=== PATIENT | female | born 1940 | race Caucasian/White ===

== ENCOUNTER → 2016-08-23 | Outpatient (CLI) | payer MEDICARE, OTHER ==
[~2016-08-23] MED LIST: AMR2 PO; ASPCH81 PO; CEPH500C PO; CRDCD180 PO; GLC500 PO; LISI40TA PO; LRT5 PO; SIMV5TAB2 PO
[2016-08-23 09:27] LABS: INR 2.8 (0.9-1.1); PROTHROMBIN TIME (PATIENT) 31.5 SECONDS (9.0-12.0)
== END ==
LOC: C.LABUPNIT 08:59
PROVIDERS: ATTEND Family Medicine
DX: N17.9 Acute kidney failure, unspecified (principal)

== ENCOUNTER → 2016-08-26 | Outpatient (CLI) | payer MEDICARE, OTHER ==
[2016-08-26 10:22] LABS: BASO % 1.1 %; BASO ABS # 0.09 K/uL (0-0.2); COMPLETE YES; EOS % 3.5 %; HEMATOCRIT 35.7 % (37-47); IG% 0.1 %; LYMPH % 26.8 %; MEAN CELL VOLUME 77.4 fL (80-100); MEAN CORPUSCULAR HEMOGLOBIN 23.2 pg (25-34); MEAN PLATELET VOLUME 11.7 fL (7.4-10.4); NEUT % 60.5 %; PLATELET COUNT 395 K/uL (130-400); RED BLOOD COUNT 4.61 M/uL (4.2-5.4); WHITE BLOOD COUNT 8.21 K/uL (4.8-10.8)
[2016-08-26 10:36] LABS: BLOOD UREA NITROGEN 28 mg/dl (7-18); BUN/CREATININE RATIO 23.1 (10-20); CALCIUM 9.4 mg/dl (8.5-10.1); CARBON DIOXIDE 22 mmol/L (21-32); CHLORIDE 111 mmol/L (98-107); GLUCOSE 112 mg/dl (70-99); POTASSIUM 4.4 mmol/L (3.5-5.1); SODIUM 143 mmol/L (136-145)
== END ==
LOC: C.LABUPNIT 09:41
PROVIDERS: ATTEND Family Medicine
DX: I10 Essential (primary) hypertension (principal); N17.9 Acute kidney failure, unspecified

== ENCOUNTER 2021-10-08 10:08 | Inpatient (IN) ==
--- NOTE | 2021-10-08 11:13 | Emergency Department Note ---
History of Present Illness General Chief complaint: Hyperglycemia Stated complaint: HYPERGLYCEMIA Time Seen by Provider: 10/08/21 10:56 Source: patient Mode of arrival: ambulatory Limitations: no limitations History of Present Illness Provider complaint: n/v, out of insulin Associated symptoms: + loss of appetite, + malaise and + nausea/vomiting; no chest pain, no cough or no fever/chills Treatments prior to arrival: none This is a 81-year-old female presents emergency department complaining of nausea vomiting for 2 days and also states she has been out of her insulin for several months. Patient states she missed an appointment with her family doctor Dr. Bradley in August as she and her family member who she lives with both had Covid. She states she did not even call them to tell them she had been out of her insulin. Patient states she is a longstanding diabetic. Patient states in the last 2 days she has had increased nausea and vomiting. She states she drinks a lot of water. She states she does not check her blood sugar. Patient states she is always cold denies any change including fevers or chills. Patient states she has chronic diarrhea, denies blood, states this is never otherwise been evaluated. Pt seen during a time of high acuity and national emergency pandemic while wearing PPE. Home Medications Medication Instructions Recorded Confirmed Type diltiazem HCl 120 mg 1,220 mg PO QAM 10/08/21 10/08/21 History capsule,extended release 24 hr empagliflozin 10 mg tablet 10 mg PO QAM 10/08/21 10/08/21 History (Jardiance) fenofibrate 160 mg tablet 160 mg PO QAM 10/08/21 10/08/21 History furosemide 40 mg tablet 40 mg PO QAM 10/08/21 10/08/21 History metformin 500 mg tablet 500 mg PO BID 10/08/21 10/08/21 History pantoprazole 40 mg tablet,delayed 40 mg PO BID 10/08/21 10/08/21 History release rosuvastatin 40 mg tablet 40 mg PO QAM 10/08/21 10/08/21 History warfarin 2.5 mg tablet 2.5 mg PO QAM 10/08/21 10/08/21 History Allergies Allergy/AdvReac Type Severity Reaction Status Date / Time IV DYE Allergy Unknown Unknown Uncoded 10/08/21 11:48 PENICILLIN Allergy Unknown IV DYE Uncoded 10/08/21 11:48 Past Med/Surg History Medical History (Updated 10/10/21 @ 03:28 by Jasmin Mae DO) Anemia Atrial fibrillation COPD (chronic obstructive pulmonary disease) DM2 (diabetes mellitus, type 2) History of DVT (deep vein thrombosis) Social History Smoking Status: Never smoker Second Hand Exposure: No; Hx Alcohol Use: No Hx Substance Use: No Preferred Language: [place] Communication Ability: Effective Planting Material Carrier Required: No Beliefs That Will Affect Care: None marital status: Current Living Situation: Family Current Living Situation Comment: Lives with son Jaya Other Information That Helps Us Care for You: No Feels Safe at Home: Yes Safety Concerns: Feels Safe At This Time Assistive Devices: Cane and Walker Review of Systems A total of 10 systems reviewed and were otherwise negative All systems reviewed & are unremarkable except as noted in HPI & below Physical Exam Vital Signs Vital Signs - 24 hr 10/08/21 10:17 10/08/21 11:14 10/08/21 13:00 Temperature 35.8 C L Temperature Source Temporal Artery Scan Pulse Rate 69 Pulse Rate [Apical] 93 H 92 H Pulse Rhythm Regular Pulse Strength Normal Respiratory Rate 24 22 19 Respiratory Effort / Characteristics Non-Labored Spontaneous Respiratory Depth Normal Respiratory Pattern Regular Blood Pressure 107/72 Blood Pressure [Left Arm] 110/66 121/70 Blood Pressure Mean 83 Blood Pressure Mean [Left Arm] 80 87 Blood Pressure Position Sitting Pulse Oximetry 100 94 98 Oxygen Delivery Method Room Air Room Air Room Air Sepsis Recent Fever Within 48 Hours No Sepsis New/Unexplained Change in Mental Status No Sepsis Action Taken by Nursing No Action Required 10/08/21 14:34 10/08/21 14:53 10/08/21 15:08 Temperature 36.8 C 37.0 C 37.3 C Temperature Source Oral Oral Oral Pulse Rate 101 H 91 H 96 H Pulse Rate [Apical] Pulse Rhythm Regular Pulse Strength Normal Respiratory Rate 15 18 19 Respiratory Effort / Characteristics Respiratory Depth Respiratory Pattern Blood Pressure 146/63 H 136/82 125/66 Blood Pressure [Left Arm] Blood Pressure Mean 90 100 85 Blood Pressure Mean [Left Arm] Blood Pressure Position Pulse Oximetry 99 100 97 Oxygen Delivery Method Sepsis Recent Fever Within 48 Hours Sepsis New/Unexplained Change in Mental Status Sepsis Action Taken by Nursing GENERAL: alert, ill appearing, well nourished, no distress, non-toxic EYE EXAM: normal conjunctiva, PERRL and EOM's grossly intact OROPHARYNX: no exudate, no erythema, lips, buccal mucosa, and tongue normal and mucous membranes are moist NECK: supple, no nuchal rigidity, no adenopathy, non-tender LUNGS: Clear to auscultation. Normal chest wall mechanics, no w/r/r HEART: no murmurs, S1 normal and S2 normal ABDOMEN: abdomen soft, non-tender, normo-active bowel sounds, no masses, no rebound or guarding. BACK: Back is symmetrical on inspection and there is no deformity, no midline tenderness, no CVA tenderness. SKIN: no rashes and no bruising UPPER EXTREMITIES: upper extremities are grossly normal. FROM, nml pulses b/l. LOWER EXTREMITIES: No pitting edema. FROM, nml pulses b/l. NEURO EXAM: Normal sensorium, cranial nerves II-XII grossly intact, normal speech, no gross weakness of arms, no gross weakness of legs. Gross sensation intact. Course Course 1225: Patient denies any GI bleeding, states stools are chronically black due to her use of iron. Patient states she was previously told she had iron deficiency anemia. Patient denies any blood from any other source. 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 She is uncertain of the last INR was. We did discuss need for blood transfusion, she verbalized understanding was in agreement. Consent form signed at bedside. Administered Medications Diltiazem HCl (Diltiazem Hcl 120 Mg Capcr) 120 mg PO [facility] Stop: 11/08/21 08:59 Last Admin: 10/09/21 08:22 Dose: 120 mg Documented by: [id number] Fenofibrate (Fenofibrate Nanocrystallized 145 Mg Tablet) 145 mg PO [facility] Stop: 11/08/21 08:59 Last Admin: 10/09/21 10:00 Dose: 145 mg Documented by: [id number] Furosemide (Furosemide 40 Mg Tab) 40 mg PO [facility] Stop: 11/08/21 08:59 Last Admin: 10/09/21 08:21 Dose: 40 mg Documented by: [id number] Lactated Ringer's (Lr) 1,000 mls @ 75 mls/hr IV .[id number] [facility] Stop: 11/07/21 11:14 Last Admin: 10/10/21 02:13 Dose: 75 mls/hr Documented by: [id number] Infusion: 10/10/21 01:50 Dose: 75 mls/hr Documented by: [id number] Admin: 10/09/21 12:30 Dose: 75 mls/hr Documented by: [id number] Infusion: 10/09/21 12:10 Dose: 0 mls/hr Documented by: [id number] Infusion: 10/09/21 06:22 Dose: 125 mls/hr Documented by: [id number] Infusion: 10/08/21 23:39 Dose: 0 mls/hr Documented by: [id number] Admin: 10/08/21 21:26 Dose: 125 mls/hr Documented by: [id number] Infusion: 10/08/21 18:30 Dose: 0 mls/hr Documented by: [id number] Admin: 10/08/21 11:22 Dose: 125 mls/hr Documented by: [id number] Pantoprazole Sodium 40 mg/ (Dextrose) 100 mls @ 20 mls/hr IV Q5H [facility] Stop: 11/08/21 08:14 Last Admin: 10/10/21 02:23 Dose: 8 mg/hr, 20 mls/hr Documented by: [id number] Infusion: 10/10/21 02:23 Dose: 8 mg/hr, 20 mls/hr Documented by: [id number] Admin: 10/09/21 21:26 Dose: 8 mg/hr, 20 mls/hr Documented by: [id number] Infusion: 10/09/21 21:25 Dose: 8 mg/hr, 20 mls/hr Documented by: [id number] Admin: 10/09/21 16:25 Dose: 8 mg/hr, 20 mls/hr Documented by: [id number] Infusion: 10/09/21 14:40 Dose: 0 mg/hr, 0 mls/hr Documented by: [id number] Admin: 10/09/21 09:40 Dose: 8 mg/hr, 20 mls/hr Documented by: [id number] Ceftriaxone Sodium 2,000 mg/ (Dextrose) 70 mls @ 100 mls/hr IV Q24H [facility]; Protocol Stop: 10/14/21 09:59 Last Infusion: 10/09/21 11:42 Dose: 0 mls/hr Documented by: [id number] Admin: 10/09/21 11:00 Dose: 100 mls/hr Documented by: [id number] Insulin Aspart (Insulin Aspart Per Unit) 0 units SC ACHS [facility] Stop: 11/07/21 17:48 Last Admin: 10/09/21 20:38 Dose: 1 units Documented by: [id number] Cosigned by: [id number] Admin: 10/09/21 18:11 Dose: 6 units Documented by: [id number] Cosigned by: [id number] Admin: 10/09/21 12:32 Dose: 5 units Documented by: [id number] Cosigned by: [id number] Admin: 10/09/21 08:26 Dose: 7 units Documented by: [id number] Cosigned by: [id number] Admin: 10/08/21 21:26 Dose: 2 units Documented by: [id number] Cosigned by: [id number] Admin: 10/08/21 19:51 Dose: 4 units Documented by: [id number] Cosigned by: [id number] Insulin Glargine (Insulin Glargine Solostar 100 Units/Ml 3 Ml Pen) 0 units SC BID [facility]; Protocol Stop: 11/08/21 11:59 Last Admin: 10/09/21 20:39 Dose: 6 units Documented by: [id number] Cosigned by: [id number] Admin: 10/09/21 12:35 Dose: 6 units Documented by: [id number] Cosigned by: [id number] Ondansetron HCl (Ondansetron Inj 2 Mg/Ml 2 Ml Vial) 4 mg IV Q6H PRN PRN Reason: Nausea Stop: 11/07/21 17:18 Last Admin: 10/10/21 02:33 Dose: 4 mg Documented by: [id number] Pantoprazole Sodium (Pantoprazole 40 Mg Tab) 40 mg PO BID [facility] Stop: 11/07/21 20:59 Last Admin: 10/08/21 22:16 Dose: 40 mg Documented by: [id number] Rosuvastatin Calcium (Rosuvastatin Calcium 20 Mg Tab) 40 mg PO QAM [facility] Stop: 11/08/21 08:59 Last Admin: 10/09/21 08:21 Dose: 40 mg Documented by: [id number] Discontinued Medications Phytonadione 10 mg/ Dextrose 51 mls @ 102 mls/hr IV ONE ONE Stop: 10/09/21 11:29 Last Infusion: 10/09/21 13:01 Dose: 0 mls/hr Documented by: [id number] Admin: 10/09/21 12:31 Dose: 102 mls/hr Documented by: [id number] Insulin Aspart (Insulin Aspart Per Unit) 0 units SC 0200 [facility] Stop: 10/09/21 02:01 Last Admin: 10/09/21 01:54 Dose: Not Given Documented by: [id number] Cosigned by: [id number] Insulin Glargine (Insulin Glargine Solostar 100 Units/Ml 3 Ml Pen) 10 units SC 2200 [facility] Stop: 10/08/21 22:01 Last Admin: 10/08/21 22:16 Dose: 10 units Documented by: [id number] Cosigned by: [id number] Insulin Human Regular (Novolin-R Insulin Per Unit Charge) 6 units SC NOW STA Stop: 10/08/21 12:30 Last Admin: 10/08/21 13:09 Dose: 6 units Documented by: [id number] Cosigned by: [id number] Ioversol (Optiray 320 100ml) 94 ml IV ONCE ONE Stop: 10/08/21 13:35 Last Admin: 10/08/21 13:34 Dose: 94 ml Documented by: [id number] Ondansetron HCl (Ondansetron Inj 2 Mg/Ml 2 Ml Vial) 4 mg IV NOW STA Stop: 10/08/21 12:29 Last Admin: 10/08/21 13:09 Dose: 4 mg Documented by: [id number] Critical Care Time Critical Care Time: Yes Total Critical Care Time: 39 Critical care of 39 min performed to assess and manage high likelihood of life-threatening anemia, involving labs and imaging performed with assessment to evaluate vomiting, anemia, hyperglycemia diagnosis with frequent reassessment. This time includes bedside time, treatment discussions with patient/family/consultants, documentation time and excludes procedure time. Medical Decision Making Differential Diagnosis Differential: Gastroenteritis, Food Borne, Esophageal Perforation, , Electrolyte Abnormality, Dehydration, Intraabdominal Infection, UTI/Pyelonephritis, Bowel Obstruction, Biliary Pathology, amongst other pathology entertained. Medical Records Attestation: I reviewed the patient's medical records. Home Medications Current Medication List: was personally reviewed by me Laboratory Data Attestation: I reviewed the patient's lab results. Result diagrams: 10/09/21 08:18 10/09/21 08:18 Lab Results 10/08/21 10/08/21 10/08/21 Range/Units 10:22 11:00 11:00 WBC 12.31 H (4.8-10.8) K/uL RBC 2.94 L (4.2-5.4) M/uL Hgb 6.8 L* (12.0-16.0) g/dL Hct 22.4 L (37-47) % MCV 76.2 L (80-100) fL MCH 23.1 L (25-34) pg MCHC 30.4 L (32-36) g/dL RDW Std Deviation 62.3 H (36.4-46.3) fL RDW Coeff of Muna 23.4 H (11.5-14.5) % Plt Count 366 (130-400) K/uL MPV 11.2 H (7.4-10.4) fL Immature Gran % (Auto) 0.2 % Neut % (Auto) 85.3 % Lymph % (Auto) 10.2 % Ware % (Auto) 3.7 % Eos % (Auto) 0.2 % Baso % (Auto) 0.4 % Reticulocyte % (Auto) (0.5-2.0) % Neut # (Auto) 10.49 H (1.4-6.5) K/uL Lymph # (Auto) 1.26 (1.2-3.4) K/uL Ware # (Auto) 0.46 (0.11-0.59) K/uL Eos # (Auto) 0.03 (0-0.5) K/uL Baso # (Auto) 0.05 (0-0.2) K/uL Reticulocyte # (0.02-0.10) 10^6/uL Immature Gran # (Auto) 0.02 (0.00-0.02) K/uL Hypochromasia Present Anisocytosis Present Microcytosis Present PT (9.0-12.0) Seconds INR (0.9-1.1) Sodium 136 (136-145) mmol/L Potassium 4.3 (3.5-5.1) mmol/L Chloride 105 (98-107) mmol/L Carbon Dioxide 19 L (21-32) mmol/L Anion Gap 12 H (3-11) BUN 66 H (6-23) mg/dl Creatinine 1.30 H (0.6-1.2) mg/dl Est Cr Clr Drug Dosing 30.9 ml/min Est GFR ( Amer) 45.2 ml/min Est GFR (Non-Af Amer) 39.0 ml/min BUN/Creatinine Ratio 50.8 H (10-20) Glucose 325 H* (70-99(Fasting)) mg/dl POC Glucose 296 H (70-99) mg/dl Calcium 8.7 (8.5-10.1) mg/dl Magnesium 2.2 (1.7-2.4) mg/dl Total Bilirubin 0.4 (0.2-1.0) mg/dl AST 16 (13-39) U/L ALT 10 (7-52) U/L Alkaline Phosphatase 60 (34-104) U/L Troponin I 0.03 (0-0.04) ng/ml Total Protein 6.3 (6.0-8.3) gm/dl Albumin 3.2 L (3.4-5.0) gm/dl Globulin 3.1 (2.5-4.0) gm/dl Albumin/Globulin Ratio 1.0 (0.9-2) Lipase 63 (11-82) U/L TSH (0.300-4.500) uIu/ml SARS-CoV-2, RNA, NAAT (NEGATIVE) Blood Type Blood Type Recheck Antibody Screen Crossmatch 10/08/21 10/08/21 10/08/21 Range/Units 11:00 11:00 11:00 WBC (4.8-10.8) K/uL RBC (4.2-5.4) M/uL Hgb (12.0-16.0) g/dL Hct (37-47) % MCV (80-100) fL MCH (25-34) pg MCHC (32-36) g/dL RDW Std Deviation (36.4-46.3) fL RDW Coeff of Muna (11.5-14.5) % Plt Count (130-400) K/uL MPV (7.4-10.4) fL Immature Gran % (Auto) % Neut % (Auto) % Lymph % (Auto) % Ware % (Auto) % Eos % (Auto) % Baso % (Auto) % Reticulocyte % (Auto) 3.2 H (0.5-2.0) % Neut # (Auto) (1.4-6.5) K/uL Lymph # (Auto) (1.2-3.4) K/uL Ware # (Auto) (0.11-0.59) K/uL Eos # (Auto) (0-0.5) K/uL Baso # (Auto) (0-0.2) K/uL Reticulocyte # 0.09 (0.02-0.10) 10^6/uL Immature Gran # (Auto) (0.00-0.02) K/uL Hypochromasia Anisocytosis Microcytosis PT 33.1 H (9.0-12.0) Seconds INR 3.6 H (0.9-1.1) Sodium (136-145) mmol/L Potassium (3.5-5.1) mmol/L Chloride (98-107) mmol/L Carbon Dioxide (21-32) mmol/L Anion Gap (3-11) BUN (6-23) mg/dl Creatinine (0.6-1.2) mg/dl Est Cr Clr Drug Dosing ml/min Est GFR ( Amer) ml/min Est GFR (Non-Af Amer) ml/min BUN/Creatinine Ratio (10-20) Glucose (70-99(Fasting)) mg/dl POC Glucose (70-99) mg/dl Calcium (8.5-10.1) mg/dl Magnesium (1.7-2.4) mg/dl Total Bilirubin (0.2-1.0) mg/dl AST (13-39) U/L ALT (7-52) U/L Alkaline Phosphatase (34-104) U/L Troponin I (0-0.04) ng/ml Total Protein (6.0-8.3) gm/dl Albumin (3.4-5.0) gm/dl Globulin (2.5-4.0) gm/dl Albumin/Globulin Ratio (0.9-2) Lipase (11-82) U/L TSH 2.237 (0.300-4.500) uIu/ml SARS-CoV-2, RNA, NAAT (NEGATIVE) Blood Type Blood Type Recheck Antibody Screen Crossmatch 10/08/21 10/08/21 10/08/21 Range/Units 11:50 11:50 13:04 WBC (4.8-10.8) K/uL RBC (4.2-5.4) M/uL Hgb 6.5 L* (12.0-16.0) g/dL Hct 20.9 L* (37-47) % MCV (80-100) fL MCH (25-34) pg MCHC (32-36) g/dL RDW Std Deviation (36.4-46.3) fL RDW Coeff of Muna (11.5-14.5) % Plt Count (130-400) K/uL MPV (7.4-10.4) fL Immature Gran % (Auto) % Neut % (Auto) % Lymph % (Auto) % Ware % (Auto) % Eos % (Auto) % Baso % (Auto) % Reticulocyte % (Auto) (0.5-2.0) % Neut # (Auto) (1.4-6.5) K/uL Lymph # (Auto) (1.2-3.4) K/uL Ware # (Auto) (0.11-0.59) K/uL Eos # (Auto) (0-0.5) K/uL Baso # (Auto) (0-0.2) K/uL Reticulocyte # (0.02-0.10) 10^6/uL Immature Gran # (Auto) (0.00-0.02) K/uL Hypochromasia Anisocytosis Microcytosis PT (9.0-12.0) Seconds INR (0.9-1.1) Sodium (136-145) mmol/L Potassium (3.5-5.1) mmol/L Chloride (98-107) mmol/L Carbon Dioxide (21-32) mmol/L Anion Gap (3-11) BUN (6-23) mg/dl Creatinine (0.6-1.2) mg/dl Est Cr Clr Drug Dosing ml/min Est GFR ( Amer) ml/min Est GFR (Non-Af Amer) ml/min BUN/Creatinine Ratio (10-20) Glucose (70-99(Fasting)) mg/dl POC Glucose (70-99) mg/dl Calcium (8.5-10.1) mg/dl Magnesium (1.7-2.4) mg/dl Total Bilirubin (0.2-1.0) mg/dl AST (13-39) U/L ALT (7-52) U/L Alkaline Phosphatase (34-104) U/L Troponin I (0-0.04) ng/ml Total Protein (6.0-8.3) gm/dl Albumin (3.4-5.0) gm/dl Globulin (2.5-4.0) gm/dl Albumin/Globulin Ratio (0.9-2) Lipase (11-82) U/L TSH (0.300-4.500) uIu/ml SARS-CoV-2, RNA, NAAT (NEGATIVE) Blood Type A Negative Blood Type Recheck A Negative Antibody Screen NEGATIVE Crossmatch See Detail 10/08/21 10/08/21 Range/Units 14:00 14:17 WBC (4.8-10.8) K/uL RBC (4.2-5.4) M/uL Hgb (12.0-16.0) g/dL Hct (37-47) % MCV (80-100) fL MCH (25-34) pg MCHC (32-36) g/dL RDW Std Deviation (36.4-46.3) fL RDW Coeff of Muna (11.5-14.5) % Plt Count (130-400) K/uL MPV (7.4-10.4) fL Immature Gran % (Auto) % Neut % (Auto) % Lymph % (Auto) % Ware % (Auto) % Eos % (Auto) % Baso % (Auto) % Reticulocyte % (Auto) (0.5-2.0) % Neut # (Auto) (1.4-6.5) K/uL Lymph # (Auto) (1.2-3.4) K/uL Ware # (Auto) (0.11-0.59) K/uL Eos # (Auto) (0-0.5) K/uL Baso # (Auto) (0-0.2) K/uL Reticulocyte # (0.02-0.10) 10^6/uL Immature Gran # (Auto) (0.00-0.02) K/uL Hypochromasia Anisocytosis Microcytosis PT (9.0-12.0) Seconds INR (0.9-1.1) Sodium (136-145) mmol/L Potassium (3.5-5.1) mmol/L Chloride (98-107) mmol/L Carbon Dioxide (21-32) mmol/L Anion Gap (3-11) BUN (6-23) mg/dl Creatinine (0.6-1.2) mg/dl Est Cr Clr Drug Dosing ml/min Est GFR ( Amer) ml/min Est GFR (Non-Af Amer) ml/min BUN/Creatinine Ratio (10-20) Glucose (70-99(Fasting)) mg/dl POC Glucose 212 H (70-99) mg/dl Calcium (8.5-10.1) mg/dl Magnesium (1.7-2.4) mg/dl Total Bilirubin (0.2-1.0) mg/dl AST (13-39) U/L ALT (7-52) U/L Alkaline Phosphatase (34-104) U/L Troponin I (0-0.04) ng/ml Total Protein (6.0-8.3) gm/dl Albumin (3.4-5.0) gm/dl Globulin (2.5-4.0) gm/dl Albumin/Globulin Ratio (0.9-2) Lipase (11-82) U/L TSH (0.300-4.500) uIu/ml SARS-CoV-2, RNA, NAAT NEGATIVE (NEGATIVE) Blood Type Blood Type Recheck Antibody Screen Crossmatch Imaging Data Radiologist's Impression: Abdomen/Pelvis CT 10/08/21 12:34 CT abd pelvis IV con only CLINICAL HISTORY: n/v TECHNIQUE: Helical axial images of the abdomen and pelvis were obtained and displayed. Automated dose lowering techniques and/or adjustment according to patient size were utilized for this exam. This exam was performed with intravenous contrast. COMPARISON: None available at the time of this dictation. FINDINGS: Lower chest: Cardiomegaly is partially visualized. Liver: Unremarkable. No focal lesions are seen. Gallbladder and biliary tree: Patient is status post cholecystectomy. No intra- or extrahepatic biliary ductal dilation. Pancreas: There is an 11 mm pancreatic cyst. Spleen: Unremarkable. Adrenals: A 14 mm adrenal nodule is seen on the left. 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 Bladder: Unremarkable. Reproductive organs: Prostatic calcifications are seen which may represent prior hemorrhage or granulomatous disease. Bowel: Diverticulosis is seen without evidence of diverticulitis. Lymph nodes Retroperitoneal: Unremarkable. Mesenteric: Unremarkable. Pelvic: Unremarkable. Peritoneum: Normal. Vessels: Atherosclerotic calcifications are seen. Abdominal wall: Unremarkable. Bones: Degenerative changes in the visualized spine. IMPRESSION: No evidence of acute abnormality and in particular no evidence of bowel obstruction. ACT 112: Negative or not required by law. Electronically signed by: Pablo Mars M.D. 10/08/2021 1:52 PM ECG Data Attestation: I personally reviewed and interpreted this ECG as follows: Indication: + vomiting Rate (beats per minute): 93 Rhythm: + normal sinus ECG Intervals/blocks: + Normal QRS and + Normal QT ECG [place]: + Normal ECG ST segments: + Nonspecific ST abnormalities MDM Narrative This is a 81-year-old female presents emergency department due to concern for nausea and vomiting and being out of her usual insulin. Patient has been noncompliant for several months per her report. Labs are drawn and sent patient was ill-appearing, and she was placed on telemetry. Patient also started on IV fluids and given medication for nausea. Patient found to have significant anemia which she stated she had no prior knowledge of. Patient denied any recent blood loss or history of GI bleed. Patient is anticoagulated due to history of blood clots. Repeat H&H did confirm this. Patient signed blood consent at bedside and 1 unit of packed RBCs was ordered. Patient was given subcutaneous insulin. I do not suspect DKA is the primary cause of her symptoms as her anion gap was only 12. Patient did remain hemodynamically stable. PT/INR and UA were pending at the time my discussion with hospitalist for additional evaluation and management. I did not perform a BRITNI yet due to not knowing her INR. I did ask that any stools be hemocculted. Patient and son at bedside updated on all results and were in agreement with plan. An order was placed for continuous cardiac monitoring. The monitor shows a rate of __90 with _normal sinus_ rhythm. Impression & Plan Nausea & vomiting, Anemia, Acute kidney injury, Acute hyperglycemia, Noncompliance, Dehydration Discharge Plan Visit Data Chief Complaint: Hyperglycemia Stated Complaint: HYPERGLYCEMIA ED Provider: Jasmin Mae Discharge Problem: Nausea & vomiting, Anemia, Acute kidney injury, Acute hyperglycemia, Noncompliance, Dehydration Patient Disposition: Admitted As Inpatient Discharge Instructions Interventions: ED Discharge Assessment Last Done: 10/08/21 17:19 Discharge Problem: Nausea & vomiting Qualifiers: Vomiting type: unspecified Qualified Code(s): R11.2 - Nausea with vomiting, unspecified Anemia Qualifiers: Anemia type: unspecified type Qualified Code(s): D64.9 - Anemia, unspecified
[2021-10-08] MEDS: LACTATED RINGER'S 1,000 ML IV SCH ×2 (11:22→21:26)
[2021-10-08 11:34] LABS: Anisocytosis Present; Basophils # (auto) 0.05 K/uL (0-0.2); Basophils % (auto) 0.4 %; Eosinophils # (auto) 0.03 K/uL (0-0.5); Eosinophils % (auto) 0.2 %; Hematocrit (blood only) 22.4 % (37-47); Hemoglobin 6.8 g/dL (12.0-16.0); Hypochromasia Present; Immature Granulocytes # (auto) 0.02 K/uL (0.00-0.02); Immature Granulocytes % (auto) 0.2 %; Lymphocytes # (auto) 1.26 K/uL (1.2-3.4); Lymphocytes % (auto) 10.2 %; Mean Corpuscular Hemoglobin 23.1 pg (25-34); Mean Corpuscular Hgb Conc 30.4 g/dL (32-36); Mean Corpuscular Volume 76.2 fL (80-100); Mean Platelet Volume 11.2 fL (7.4-10.4); Microcytosis Present; Monocytes # (auto) 0.46 K/uL (0.11-0.59); Monocytes % (auto) 3.7 %; Neutrophils # (auto) 10.49 K/uL (1.4-6.5); Neutrophils % (auto) 85.3 %; Platelet Count 366 K/uL (130-400); RDW Coefficient of Variation 23.4 % (11.5-14.5); RDW Standard Deviation 62.3 fL (36.4-46.3); Red Blood Count 2.94 M/uL (4.2-5.4); White Blood Count 12.31 K/uL (4.8-10.8)
[2021-10-08 12:03] LABS: Hematocrit (blood only) 20.9 % (37-47); Hemoglobin 6.5 g/dL (12.0-16.0)
[2021-10-08 12:09] LABS: Albumin Level 3.2 gm/dl (3.4-5.0); BUN Creatinine Ratio 50.8 (10-20); Bilirubin,Total 0.4 mg/dl (0.2-1.0); Calcium 8.7 mg/dl (8.5-10.1); Creatinine Clr Calc Pharmacy 30.9 ml/min; Est GFR (African American) 45.2 ml/min; Globulin 3.1 gm/dl (2.5-4.0); Magnesium 2.2 mg/dl (1.7-2.4); Potassium 4.3 mmol/L (3.5-5.1); Total Protein 6.3 gm/dl (6.0-8.3)
[2021-10-08] MEDS ORDERED: SODIUM CHLORIDE 0.9% 250 ML IV PRN ×2 (12:28→23:03)
[2021-10-08] MEDS ORDERED: ONDANSETRON INJ 2 MG/ML 2 ML VIAL IV STA (12:28)
[2021-10-08] MEDS ORDERED: NovoLIN-R INSULIN PER UNIT CHARGE SC STA (12:29)
[2021-10-08 13:09] LABS: Troponin I 0.03 ng/ml (0-0.04)
[2021-10-08 13:11] LABS: INR 3.6 (0.9-1.1); Prothrombin Time 33.1 Seconds (9.0-12.0)
[2021-10-08] MEDS ORDERED: OPTIRAY 320 100ml IV ONE (13:34)
--- NOTE | 2021-10-08 13:54 | CT Scan Report ---
CT abd pelvis IV con only CLINICAL HISTORY: n/v TECHNIQUE: Helical axial images of the abdomen and pelvis were obtained and displayed. Automated dose lowering techniques and/or adjustment according to patient size were utilized for this exam. This e xam was performed with intravenous contrast. COMPARISON: None available at the time of this dictation. FINDINGS: Lower chest: Cardiomegaly is partially visualized. Liver: Unremarkable. No focal lesions are seen. Gallbladder and biliary tree: Patient is status post cholecystectomy. No intra- or extrahepatic bilia ry ductal dilation. Pancreas: There is an 11 mm pancreatic cyst. Spleen: Unremarkable. Adrenals: A 14 mm adrenal nodule is seen on the left. 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 Bladder: Unremarkable. Reproductive organs: Prostatic calcifications are seen which may represent prior hemorrhage or granul omatous disease. Bowel: Diverticulosis is seen without evidence of diverticulitis. Lymph nodes Retroperitoneal: Unremarkable. Mesenteric: Unremarkable. Pelvic: Unremarkable. Peritoneum: Normal. Vessels: Atherosclerotic calcifications are seen. Abdominal wall: Unremarkable. Bones: Degenerative changes in the visualized spine. IMPRESSION: No evidence of acute abnormality and in particular no evidence of bowel obstruction. ACT 112: Negative or not required by law. Electronically signed by: Pablo Mars M.D. 10/08/2021 1:52 PM
--- NOTE | 2021-10-08 14:33 | Electrocardiogram Report ---
Test Reason : Blood Pressure : / mmHG Vent. Rate : 093 BPM Atrial Rate : 249 BPM P-R Int : 000 ms QRS Dur : 086 ms QT Int : 386 ms P-R-T Axes : 239 -11 049 degrees QTc Int : 479 ms Probable Sinus rhythm Minimal voltage criteria for LVH, may be normal variant Diffuse Nonspecific T wave abnormality Abnormal ECG When compared with ECG of 04-APR-2006 10:29, Nonspecific T wave abnormality now evident in Lateral leads Confirmed by Grover Russell ([id number]) on 10/08/2021 2:33:04 PM Referred By: REFERRED SELF Confirmed By:Grover Russell
--- NOTE | 2021-10-08 15:30 | History & Physical Report ---
Date of Service October 08, 2021 Assessment & Plan (1) Anemia: Plan: -Hgb 6.5, Hct 20.9, MCV 76.2, MCHC 30.4, RDW 62.3, retic cout pending, patient asymptomatic, HD stable, 1 unit of pRBCs started. CBC recheck later this evening. -Denies any obvious source of bleeding/no hematuria, hematemesis, hematochezia. Stool is very dark normally due to iron pill, unable to determine if stool is melenic. Patient is on coumadin for PMH of DVT. -Patient reports being diagnosed as anemic by Dr. Nielson 2-3 weeks ago, has been taking a daily iron supplement as well as two other pills for her anemia, possibly B12 and folate? (2) DM2 (diabetes mellitus, type 2): Plan: -Reports he has not had her insulin rx filled since fall, unknown basal dose, reportedly also taking Jardiance and metformin. Will hold these while hospitalized. -AG 12, CO2 19. Do not suspect DKA. repeating BMP now. -Received 6 units regular insulin in ED for BG 325. -Will consult pharmacy for glycemic management. -Accucheks achs with CC diet -A1c in AM. (3) Acute kidney injury: Plan: -BUN 66, Cr 1.30, baseline 21 and 0.9, respectively. Currently not on any nephrotoxic agents, unknown what abx patient was prescribed for UTI tx. Suspect this is combination of volume depletion as well as possible ongoing UTI, patient states she was recently treated as an outpt for a UTI, however continues to have dysuria with right sided flank pain. -U/A with Cx pending. -LRs @ 125cc/hr in ED, will continue for now. -Renally dose all medications, avoid nephrotoxic agents. (4) UTI (urinary tract infection): Plan: -possible ongoing UTI, patient states she was recently treated as an outpt for a UTI, however continues to have dysuria with right sided flank pain. -U/A with Cx pending. No previous cultures in system, will wait for UA before starting abx. (5) Nausea & vomiting: Plan: -Suspect d/t possible UTI, pt does not appear to be in DKA. Mild epigastric, LLQ pain, ? suprapubic pain, + right flank pain. -CTAP unrevealing, pt is s/p cholecystectomy, incidental 11mm L renal artery aneurysm noted. -Pt receiving IVF for volume repletion, HD stable. -Zofran prn. (6) Atrial fibrillation: Plan: -Currently NSR. -On Coumadin, Diltiazem 120 mg daily for rate control. Will continue these. (7) History of DVT (deep vein thrombosis): Plan: -On coumadin 2.5 mg daily, does not routinely get INR checked. -INR 3.6, PT 33.1 today in ED. (8) COPD (chronic obstructive pulmonary disease): Plan: -Pt reported, states she is not currently on any medications/inhaler for this. No previous notes. -Satting in mid-high 90s in [place]. No O2 at home. No adventitious breath sounds on my exam. Plan: -Admit for obs. -Full Code -SCDs, Coumadin ppx History of Present Illness Chief Complaint: nausea, vomiting x 2 days Primary Care Provider: Jennifer Nielson MD Patient is a 81-year-old female the past medical history of A. fib, DVT, anemia, DM2, GERD, and recent treatment for UTI who presents today with complaints of nausea and vomiting for 2 days. Patient states she had been overall okay up until the last few days, aside from persistent dysuria that has not subsided, despite reportedly being treated with an unknown antibiotic recently for a UTI. She has not had any abdominal pain until today, now noting dull epigastric pain without radiation. Also reports right sided flank pain. Denies fever/chills, weight loss, myalgias, cough, SOB, BULLARD, chest pain, palpitations, weakness, dizziness, hematemesis, hematuria, diarrhea. Reports chronically dark stools since starting on iron pills. In the ED, workup revealed Hgb 6.5, Hct 20.9, retic count pending, patient asymptomatic, HD stable, 1 unit of pRBCs started. Also significant for WBC 12.31, neutrophil # 10.49, lymph 1.26, procal pending, U/A with culture pending. Blood glucose 325 with CO2 19, AG 12, electrolytes WNL. BUN 66, Cr 1.30. Patient states she was diagnosed with anemia by her PCP last 2 to 3 weeks and instructed to take 3 pills which she believes is an iron pill, B12, and possibly folate. She also notes she has been without insulin since fall 2020, she had an appointment with her PCP in July however could not keep it due to COVID-19 infection. Has not rescheduled. She has been on Coumadin for history of DVTs, however does not recall her last INR check. States she has been compliant with medications. Allergies Allergy/AdvReac Type Severity Reaction Status Date / Time IV DYE Allergy Unknown Unknown Uncoded 10/08/21 11:48 PENICILLIN Allergy Unknown IV DYE Uncoded 10/08/21 11:48 Home Medications Medication Instructions Recorded Confirmed Type diltiazem HCl 120 mg 1,220 mg PO QAM 10/08/21 10/08/21 History capsule,extended release 24 hr empagliflozin 10 mg tablet 10 mg PO QAM 10/08/21 10/08/21 History (Jardiance) fenofibrate 160 mg tablet 160 mg PO QAM 10/08/21 10/08/21 History furosemide 40 mg tablet 40 mg PO QAM 10/08/21 10/08/21 History metformin 500 mg tablet 500 mg PO BID 10/08/21 10/08/21 History pantoprazole 40 mg tablet,delayed 40 mg PO BID 10/08/21 10/08/21 History release rosuvastatin 40 mg tablet 40 mg PO QAM 10/08/21 10/08/21 History warfarin 2.5 mg tablet 2.5 mg PO QAM 10/08/21 10/08/21 History Past Med/Surg History Medical History (Updated 10/09/21 @ 10:42 by Jeanette Wolfe PA-C) Anemia Atrial fibrillation COPD (chronic obstructive pulmonary disease) DM2 (diabetes mellitus, type 2) History of DVT (deep vein thrombosis) Social History Smoking Status: Never smoker Second Hand Exposure: No; Hx Alcohol Use: No Hx Substance Use: No Preferred Language: Greenlandic 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 Beliefs That Will Affect Care: None Current Living Situation: Family Current Living Situation Comment: Lives with son Jaya Other Information That Helps Us Care for You: No Feels Safe at Home: Yes Safety Concerns: Feels Safe At This Time Assistive Devices: Cane, Denture - Upper, Glasses and Walker Review of Systems Review of Systems: Constitutional: No fever, sweats or chills Eyes: No diplopia, no worsening or blurred vision ENT: normal hearing, no trouble swallowing Respiratory: No cough, sputum, dyspnea at rest or on exertion Cardiovascular: No chest pain, tightness or palpitations Abdomen: Reports epigastric pain, nausea, and vomiting; no diarrhea or constipation Musculoskeletal: No joint pain, calf pain, swelling Neurologic: No weakness, numbness/tingling, or balance problems Psychiatric: No anxiety or depression Skin: No rash or itch Physical Exam Physical Exam: General: awake, alert, no apparent distress Head: Normocephalic, atraumatic ENT: PERRL, EOMI, no pharyngeal exudate, mucous membranes moist Chest: Clear to auscultation, on room air, no adventitious breath sounds Cardiac: Regular rate and rhythm, no murmur, no JVD, normal peripheral pulses, good capillary refill Abdominal: Mild epigastric and LLQ pain; NABS x 4 quadrants, soft, no rebound, guarding or tenderness Extremities: Normal inspection, no peripheral edema or erythema, calfs nontender to palpation Psych: Normal mood and affect Neuro: AAO x 3, strength intact bilaterally and rated 5/5, no motor deficits, speech is clear, no peripheral sensory deficits Skin: with pallor; no rash or erythema Results & Data Results & Data ([facility]) Vital Signs (Past 12 Hours) Vital Signs Temp Pulse Pulse Resp BP BP Pulse Ox 10/08/21 15:08 37.3 C 96 H 19 125/66 97 10/08/21 14:53 37.0 C 91 H 18 136/82 100 10/08/21 14:34 36.8 C 101 H 15 146/63 H 99 10/08/21 13:00 92 H 19 121/70 98 10/08/21 11:14 93 H 22 110/66 94 10/08/21 10:17 35.8 C L 69 24 107/72 100 Laboratory Results Abnormal lab results 10/08/21 10/08/21 10/08/21 Range/Units 10:22 11:00 11:00 WBC 12.31 H (4.8-10.8) K/uL RBC 2.94 L (4.2-5.4) M/uL Hgb 6.8 L* (12.0-16.0) g/dL Hct 22.4 L (37-47) % MCV 76.2 L (80-100) fL MCH 23.1 L (25-34) pg MCHC 30.4 L (32-36) g/dL RDW Std Deviation 62.3 H (36.4-46.3) fL RDW Coeff of Muna 23.4 H (11.5-14.5) % MPV 11.2 H (7.4-10.4) fL Neut # (Auto) 10.49 H (1.4-6.5) K/uL PT (9.0-12.0) Seconds INR (0.9-1.1) Carbon Dioxide 19 L (21-32) mmol/L Anion Gap 12 H (3-11) BUN 66 H (6-23) mg/dl Creatinine 1.30 H (0.6-1.2) mg/dl BUN/Creatinine Ratio 50.8 H (10-20) Glucose 325 H* (70-99(Fasting)) mg/dl POC Glucose 296 H (70-99) mg/dl Albumin 3.2 L (3.4-5.0) gm/dl Crossmatch 10/08/21 10/08/21 10/08/21 Range/Units 11:00 11:50 11:50 WBC (4.8-10.8) K/uL RBC (4.2-5.4) M/uL Hgb 6.5 L* (12.0-16.0) g/dL Hct 20.9 L* (37-47) % MCV (80-100) fL MCH (25-34) pg MCHC (32-36) g/dL RDW Std Deviation (36.4-46.3) fL RDW Coeff of Muna (11.5-14.5) % MPV (7.4-10.4) fL Neut # (Auto) (1.4-6.5) K/uL PT 33.1 H (9.0-12.0) Seconds INR 3.6 H (0.9-1.1) Carbon Dioxide (21-32) mmol/L Anion Gap (3-11) BUN (6-23) mg/dl Creatinine (0.6-1.2) mg/dl BUN/Creatinine Ratio (10-20) Glucose (70-99(Fasting)) mg/dl POC Glucose (70-99) mg/dl Albumin (3.4-5.0) gm/dl Crossmatch See Detail 10/08/21 Range/Units 14:17 WBC (4.8-10.8) K/uL RBC (4.2-5.4) M/uL Hgb (12.0-16.0) g/dL Hct (37-47) % MCV (80-100) fL MCH (25-34) pg MCHC (32-36) g/dL RDW Std Deviation (36.4-46.3) fL RDW Coeff of Muna (11.5-14.5) % MPV (7.4-10.4) fL Neut # (Auto) (1.4-6.5) K/uL PT (9.0-12.0) Seconds INR (0.9-1.1) Carbon Dioxide (21-32) mmol/L Anion Gap (3-11) BUN (6-23) mg/dl Creatinine (0.6-1.2) mg/dl BUN/Creatinine Ratio (10-20) Glucose (70-99(Fasting)) mg/dl POC Glucose 212 H (70-99) mg/dl Albumin (3.4-5.0) gm/dl Crossmatch Diagnostic Findings Abdomen/Pelvis CT 10/08/21 12:34 CT abd pelvis IV con only CLINICAL HISTORY: n/v TECHNIQUE: Helical axial images of the abdomen and pelvis were obtained and displayed. Automated dose lowering techniques and/or adjustment according to patient size were utilized for this exam. This exam was performed with intravenous contrast. COMPARISON: None available at the time of this dictation. FINDINGS: Lower chest: Cardiomegaly is partially visualized. Liver: Unremarkable. No focal lesions are seen. Gallbladder and biliary tree: Patient is status post cholecystectomy. No intra- or extrahepatic biliary ductal dilation. Pancreas: There is an 11 mm pancreatic cyst. Spleen: Unremarkable. Adrenals: A 14 mm adrenal nodule is seen on the left. 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 Bladder: Unremarkable. Reproductive organs: Prostatic calcifications are seen which may represent prior hemorrhage or granulomatous disease. Bowel: Diverticulosis is seen without evidence of diverticulitis. Lymph nodes Retroperitoneal: Unremarkable. Mesenteric: Unremarkable. Pelvic: Unremarkable. Peritoneum: Normal. Vessels: Atherosclerotic calcifications are seen. Abdominal wall: Unremarkable. Bones: Degenerative changes in the visualized spine. IMPRESSION: No evidence of acute abnormality and in particular no evidence of bowel obstruction. ACT 112: Negative or not required by law. Electronically signed by: Pablo Mars M.D. 10/08/2021 1:52 PM Medications Administered Current Medications Lactated Ringer's (Lr) 1,000 mls @ 125 mls/hr IV .Q8H ALEN Stop: 11/07/21 11:14 Last Admin: 10/08/21 11:22 Dose: 125 mls/hr Documented by: Sodium Chloride (Nss) 250 mls @ 15 mls/hr IV .[id number] PRN PRN Reason: For Transfusion Stop: 10/08/21 22:29 ECG Additional Comments: Probable Sinus rhythm Minimal voltage criteria for LVH, may be normal variant Diffuse Nonspecific T wave abnormality Abnormal ECG When compared with ECG of 04-APR-2006 10:29, Nonspecific T wave abnormality now evident in Lateral leads Code Status & VTE Plan Code Status Full Code. Supervising Physician Co-Signing Physician Notes I have personally evaluated and examined this patient. I agree with assessment and plan of Lucía Hassan PA-C. Patient reports 20 pound unintentional weight loss however CT scan does not demonstrate significant findings.Patient reports she has refused colonoscopy in the past. Would possibly consent to 1 for this admission.Received 1 unit packed red blood cells, anticipate that this would be a slow GI bleed if she does not describe melanotic stools dark stools secondary to persistent iron supplementation. Abdomen soft nonsurgical abdomen will admit for further trending and evaluation. PG Care Time/CCT Total # of Minutes Spent Total Time Spent with Patient: Total time spent is greater than 50% in coordination of care (as documented) at patient's floor/unit and/or counseling patient: Coding Level of Care Code 89640 Initial Inpt Care Lvl 3 Diagnoses Nausea & vomiting R11.2 History of DVT (deep vein thrombosis) Z86.718 COPD (chronic obstructive pulmonary disease) J44.9 DM2 (diabetes mellitus, type 2) E11.9 Anemia D64.9 Atrial fibrillation I48.91 Acute kidney injury N17.9 UTI (urinary tract infection) N39.0
[2021-10-08] MEDS ORDERED: ACETAMINOPHEN 325 MG TAB PO PRN (17:19)
[2021-10-08] MEDS ORDERED: GLUCOSE 40% GEL 15 GM TUBE PO PRN (17:19)
[2021-10-08] MEDS ORDERED: GLUCOSE 10 TABS/TUBE PO PRN (17:19)
[2021-10-08] MEDS ORDERED: PHARMACY GLYCEMIC MGMT CONSULT PRN (17:19)
[2021-10-08] MEDS ORDERED: DEXTROSE 50% 50 ML SYRINGE IV PRN (17:19)
[2021-10-08] MEDS ORDERED: CARBOHYDRATES FOR HYPOGLYCEMIA PO PRN (17:19)
[2021-10-08] MEDS ORDERED: GLUCAGON FOR INJ 1 MG VIAL SQ PRN (17:19)
[2021-10-08] MEDS ORDERED: POLYETHYLENE (MIRALAX) 17 GM PACK PO PRN (17:19)
[2021-10-08 18:18] LABS: Reticulocyte % 3.2 % (0.5-2.0); Reticulocytes # 0.09 10^6/uL (0.02-0.10)
[2021-10-08 18:50] LABS: BUN Creatinine Ratio 47.6 (10-20); Calcium 8.5 mg/dl (8.5-10.1); Creatinine Clr Calc Pharmacy 31.9 ml/min; Est GFR (African American) 46.9 ml/min; Est GFR (Non-African American) 40.5 ml/min; Potassium 4.3 mmol/L (3.5-5.1)
[2021-10-08 19:50] LABS: Basophils # (auto) 0.03 K/uL (0-0.2); Basophils % (auto) 0.3 %; Eosinophils # (auto) 0.04 K/uL (0-0.5); Eosinophils % (auto) 0.4 %; Hematocrit (blood only) 23.7 % (37-47); Hemoglobin 7.4 g/dL (12.0-16.0); Immature Granulocytes # (auto) 0.02 K/uL (0.00-0.02); Immature Granulocytes % (auto) 0.2 %; Lymphocytes # (auto) 1.97 K/uL (1.2-3.4); Lymphocytes % (auto) 20.6 %; Mean Corpuscular Hemoglobin 24.6 pg (25-34); Mean Corpuscular Hgb Conc 31.2 g/dL (32-36); Mean Corpuscular Volume 78.7 fL (80-100); Mean Platelet Volume 10.8 fL (7.4-10.4); Monocytes # (auto) 0.65 K/uL (0.11-0.59); Monocytes % (auto) 6.8 %; Neutrophils # (auto) 6.84 K/uL (1.4-6.5); Neutrophils % (auto) 71.7 %; Platelet Count 315 K/uL (130-400); RDW Coefficient of Variation 21.5 % (11.5-14.5); RDW Standard Deviation 61.2 fL (36.4-46.3); Red Blood Count 3.01 M/uL (4.2-5.4); White Blood Count 9.55 K/uL (4.8-10.8)
[2021-10-08] MEDS: INSULIN ASPART PER UNIT SC SCH ×2 (19:51→21:26)
[2021-10-08 20:09] LABS: Anisocytosis Present; Polychromasia 1+
[2021-10-08] MEDS ORDERED: INSULIN GLARGINE SOLOSTAR 100 UNITS/ML 3 ML PEN SC SCH (22:00)
[2021-10-08] MEDS: PANTOprazole 40 MG TAB PO SCH (22:16)
[2021-10-08 23:01] LABS: Hematocrit (blood only) 21.7 % (37-47); Hemoglobin 6.8 g/dL (12.0-16.0); Mean Corpuscular Hemoglobin 24.4 pg (25-34); Mean Corpuscular Hgb Conc 31.3 g/dL (32-36); Mean Corpuscular Volume 77.8 fL (80-100); Mean Platelet Volume 10.5 fL (7.4-10.4); Platelet Count 292 K/uL (130-400); RDW Coefficient of Variation 21.5 % (11.5-14.5); Red Blood Count 2.79 M/uL (4.2-5.4); White Blood Count 9.52 K/uL (4.8-10.8)
[2021-10-08 23:11] LABS: Anisocytosis Present; Basophils # (auto) 0.02 K/uL (0-0.2); Basophils % (auto) 0.2 %; Eosinophils # (auto) 0.09 K/uL (0-0.5); Eosinophils % (auto) 0.9 %; Immature Granulocytes # (auto) 0.01 K/uL (0.00-0.02); Immature Granulocytes % (auto) 0.1 %; Lymphocytes # (auto) 2.44 K/uL (1.2-3.4); Lymphocytes % (auto) 25.6 %; Monocytes # (auto) 0.57 K/uL (0.11-0.59); Neutrophils # (auto) 6.39 K/uL (1.4-6.5); Neutrophils % (auto) 67.2 %
[2021-10-09] MEDS ORDERED: INSULIN ASPART PER UNIT SC SCH (02:00)
[2021-10-09 06:12] LABS: Appearance Urine Cloudy (Clear); Bacteria Urine Automated 4+ (Negative); Bilirubin Urine Negative (Negative); Blood Urine 3+ (Negative); Color Urine Yellow; Glucose Urine UA 3+ (Negative); Ketones Urine Trace (Negative); Leukocyte Esterase Urine 2+ (Negative); Nitrite Urine Negative (Negative); Protein Urine Negative (Negative); Specific Gravity Urine 1.033 (1.000-1.030); Urobilinogen Urine Negative (Negative); WBC Urine Automated >30 /hpf (0-5)
[2021-10-09] MEDS ORDERED: Nursing to Pharmacy Communication SCH (06:15)
[2021-10-09 07:22] LABS: RBC Urine Automated 0-4 /hpf (0-4)
[2021-10-09] MEDS: FUROSEMIDE 40 MG TAB PO SCH (08:21)
[2021-10-09] MEDS: ROSUVASTATIN CALCIUM 20 MG TAB PO SCH (08:21)
[2021-10-09] MEDS: dilTIAZem HCL 120 MG CAPCR PO SCH (08:22)
[2021-10-09] MEDS: INSULIN ASPART PER UNIT SC SCH ×4 (08:26→20:38)
[2021-10-09 08:39] LABS: Hematocrit (blood only) 30.1 % (37-47); Hemoglobin 9.7 g/dL (12.0-16.0); Mean Corpuscular Hemoglobin 26.5 pg (25-34); Mean Corpuscular Hgb Conc 32.2 g/dL (32-36); Mean Corpuscular Volume 82.2 fL (80-100); Mean Platelet Volume 10.6 fL (7.4-10.4); Platelet Count 278 K/uL (130-400); RDW Coefficient of Variation 20.3 % (11.5-14.5); RDW Standard Deviation 61.8 fL (36.4-46.3); Red Blood Count 3.66 M/uL (4.2-5.4); White Blood Count 8.97 K/uL (4.8-10.8)
[2021-10-09 08:51] LABS: Estimated Average Glucose 163 mg/dl; Hemoglobin A1C 7.3 % (4.5-5.6)
[2021-10-09 08:59] LABS: Prothrombin Time 36.6 Seconds (9.0-12.0)
[2021-10-09 09:07] LABS: BUN Creatinine Ratio 41.7 (10-20); Calcium 8.2 mg/dl (8.5-10.1); Creatinine Clr Calc Pharmacy 32.6 ml/min; Est GFR (African American) 44.4 ml/min; Est GFR (Non-African American) 38.3 ml/min; Potassium 4.4 mmol/L (3.5-5.1)
[2021-10-09 09:15] LABS: Anisocytosis Present; Basophils # (auto) 0.03 K/uL (0-0.2); Basophils % (auto) 0.3 %; Eosinophils # (auto) 0.09 K/uL (0-0.5); Immature Granulocytes # (auto) 0.02 K/uL (0.00-0.02); Immature Granulocytes % (auto) 0.2 %; Lymphocytes # (auto) 1.57 K/uL (1.2-3.4); Lymphocytes % (auto) 17.5 %; Monocytes # (auto) 0.69 K/uL (0.11-0.59); Monocytes % (auto) 7.7 %; Neutrophils # (auto) 6.57 K/uL (1.4-6.5); Neutrophils % (auto) 73.3 %
--- NOTE | 2021-10-09 09:18 | Gastrointestinal Consultation ---
Date of Consultation October 09, 2021 Assessment & Plan (1) Anemia: 81 year old female with microcytic anemia, HGB 6 which responded to transfusion, today HGB 9.7 who notes chronic dark stools since starting on outpatient iron Unfortunately she had regular diet this AM Would continue conservative management, trending HGB, tranfusion PRN IV PPI BID Can have regular diet today and tuesday will need clear liquid diet Tuesday will need to start golytely around 1500 NPO midnight for EGD/Colonoscopy Tuesday am at 830 Thank you for allowing us to participate in the care of this patient. Please call with any acute changes, questions or concerns. Please see addendum below with additional recommendation from my supervising physician. Supervising Physician Co-Signing Physician Notes I saw and evaluated the patient. She had been admitted for a question of anemia and dark stools. The patient is on chronic anticoagulation for history of atrial fibrillation. We were consulted due to the microcytic anemia. The patient had originally not wanted any endoscopic evaluation after she had been seen by her primary care doctor several weeks ago. She is now elected to undergo further evaluation. She denies having difficulty with swallowing pain with swallowing fevers chills or sweats. Physical examination no obvious distress elderly female irregular rhythm consistent with atrial fibrillation Abd: soft / nt Impression: Patient with a history of a microcytic anemia, I wonder if this could be related to underlying anticoagulation given her high INR. We could certainly plan to do upper endoscopy and colonoscopy for further evaluation of her symptoms. This can be done early next week once her INR has normalized to less than 1.7 and she is undergone a full bowel preparation. Recommendations Stop Coumadin. If INR is greater than 2 on Tuesday would recommend 5 mg vitamin K orally stop use of all nonsteroidals Full liquid diet over the weekend Bowel preparation on Tuesday evening EGD and colonoscopy to be done on Tuesday Please call with any questions or concerns over the weekend History of Present Illness Reason for Consultation: dark stools, anemia Requesting Physician: Jeanette Attending Physician: Matthew Reid MD History of Present Illness 81 year old female A. fib, DVT, anemia, DM2, GERD others below admitted with decreased appetite, nausea/vomiting and generalized fatigue. GI asked to evaluated for anemia, dark stools. Pt was seen and evaluated, chart reviewed. Notes she feels well from GI standpoint now. Denies abd pain, nausea/vomiting. Just completed regular breakfast. Suggests she was started on PO iron some time ago for anemia. Since starting, she has had dark stools. No brbpr. I was unable to access [facility] E[facility] but she tells me she has never had EGD/Colonoscopy. HGB 6 s/p transfusion 9.7 this AM MCV 77 CTAP 2021: No evidence of acute abnormality and in particular no evidence of bowel obstruction. Allergies Allergy/AdvReac Type Severity Reaction Status Date / Time IV DYE Allergy Unknown Unknown Uncoded 10/08/21 11:48 PENICILLIN Allergy Unknown IV DYE Uncoded 10/08/21 11:48 Home Medications Medication Instructions Recorded Confirmed Type diltiazem HCl 120 mg 1,220 mg PO QAM 10/08/21 10/08/21 History capsule,extended release 24 hr empagliflozin 10 mg tablet 10 mg PO QAM 10/08/21 10/08/21 History (Jardiance) fenofibrate 160 mg tablet 160 mg PO QAM 10/08/21 10/08/21 History furosemide 40 mg tablet 40 mg PO QAM 10/08/21 10/08/21 History metformin 500 mg tablet 500 mg PO BID 10/08/21 10/08/21 History pantoprazole 40 mg tablet,delayed 40 mg PO BID 10/08/21 10/08/21 History release rosuvastatin 40 mg tablet 40 mg PO QAM 10/08/21 10/08/21 History warfarin 2.5 mg tablet 2.5 mg PO QAM 10/08/21 10/08/21 History Patient History Medical History (Updated 10/09/21 @ 10:42 by Jeanette Wolfe PA-C) Anemia Atrial fibrillation COPD (chronic obstructive pulmonary disease) DM2 (diabetes mellitus, type 2) History of DVT (deep vein thrombosis) Social History Smoking Status: Never smoker Second Hand Exposure: No; Hx Alcohol Use: No Hx Substance Use: No Preferred Language: [place] Suede Cleaner Required: No Beliefs That Will Affect Care: None Current Living Situation: Family Current Living Situation Comment: Lives with son Jaya Other Information That Helps Us Care for You: No Feels Safe at Home: Yes Safety Concerns: Feels Safe At This Time Assistive Devices: Cane, Denture - Upper, Glasses and Walker Review of Systems Review of Systems: All systems reviewed & are unremarkable except as noted in HPI & below Physical Exam Constitutional: WD/WN, vitals as above Respiratory: normal respiratory effort, lungs clear to auscultation Cardiovascular: Rate/Rhythm: regular rate and regular rhythm Chest (Breasts): normal inspection/palpation of breasts Gastrointestinal (Abdomen): normal bowel sounds, soft, nontender, no hepatosplenomegaly Skin: no rashes, warm and dry Results & Data ([facility]) Vital Signs (Past 12 Hours) Vital Signs Temp Pulse Pulse Pulse Resp BP BP 10/09/21 07:30 36.9 C 89 14 122/72 10/09/21 06:11 37 C 90 18 128/79 10/09/21 05:20 37.1 C 94 H 18 103/69 10/09/21 04:20 36.8 C 90 18 132/77 10/09/21 03:50 36.3 C L 96 H 18 126/77 10/09/21 03:35 36.8 C 92 H 16 109/73 10/09/21 03:19 36.7 C 93 H 18 114/76 10/09/21 01:51 36.8 C 90 18 119/77 10/09/21 01:35 37 C 94 H 18 119/76 10/09/21 00:38 94 H 10/09/21 00:35 36.7 C 95 H 18 119/80 10/09/21 00:05 37.1 C 94 H 18 106/72 10/08/21 23:50 37.1 C 93 H 16 101/68 10/08/21 23:34 37.1 C 95 H 16 103/70 10/08/21 22:07 37.3 C 93 H 18 91/58 L Pulse Ox 10/09/21 07:30 96 10/09/21 06:11 96 10/09/21 05:20 98 10/09/21 04:20 97 10/09/21 03:50 96 10/09/21 03:35 95 10/09/21 03:19 95 10/09/21 01:51 96 10/09/21 01:35 94 10/09/21 00:38 10/09/21 00:35 98 10/09/21 00:05 95 02/17/22 23:50 95 10/08/21 23:34 95 10/08/21 22:07 93 Laboratory Results 10/09/21 10/09/21 10/09/21 Range/Units 08:18 08:18 08:18 WBC 8.97 (4.8-10.8) K/uL RBC 3.66 L (4.2-5.4) M/uL Hgb 9.7 L (12.0-16.0) g/dL Hct 30.1 L (37-47) % MCV 82.2 D (80-100) fL MCH 26.5 (25-34) pg MCHC 32.2 (32-36) g/dL RDW Std Deviation 61.8 H (36.4-46.3) fL RDW Coeff of Muna 20.3 H (11.5-14.5) % Plt Count 278 (130-400) K/uL MPV 10.6 H (7.4-10.4) fL Immature Gran % (Auto) % Neut % (Auto) % Lymph % (Auto) % [place] % (Auto) % Eos % (Auto) % Baso % (Auto) % Reticulocyte % (Auto) (0.5-2.0) % Neut # (Auto) (1.4-6.5) K/uL Lymph # (Auto) (1.2-3.4) K/uL [place] # (Auto) (0.11-0.59) K/uL Eos # (Auto) (0-0.5) K/uL Baso # (Auto) (0-0.2) K/uL Reticulocyte # (0.02-0.10) 10^6/uL Immature Gran # (Auto) (0.00-0.02) K/uL Polychromasia Hypochromasia Anisocytosis Microcytosis PT 36.6 H (9.0-12.0) Seconds INR 4.0 H (0.9-1.1) Sodium (136-145) mmol/L Potassium (3.5-5.1) mmol/L Chloride (98-107) mmol/L Carbon Dioxide (21-32) mmol/L Anion Gap (3-11) BUN (6-23) mg/dl Creatinine (0.6-1.2) mg/dl Est Cr Clr Drug Dosing ml/min Est GFR ( Amer) ml/min Est GFR (Non-Af Amer) ml/min BUN/Creatinine Ratio (10-20) Glucose (70-99(Fasting)) mg/dl POC Glucose (70-99) mg/dl Estimat Average Glucose 163 mg/dl Hemoglobin A1c 7.3 H (4.5-5.6) % Calcium (8.5-10.1) mg/dl Magnesium (1.7-2.4) mg/dl Iron (35-150) mcg/dl TIBC (250-450) mcg/dl Unsaturated IBC (155-355) mcg/dl Transferrin % Sat (15-50) % Total Bilirubin (0.2-1.0) mg/dl AST (13-39) U/L ALT (7-52) U/L Alkaline Phosphatase (34-104) U/L Troponin I (0-0.04) ng/ml Total Protein (6.0-8.3) gm/dl Albumin (3.4-5.0) gm/dl Globulin (2.5-4.0) gm/dl Albumin/Globulin Ratio (0.9-2) Lipase (11-82) U/L Vitamin B12 Folate Procalcitonin (0-0.5) ng/ml TSH (0.300-4.500) uIu/ml Urine Color Urine Appearance (Clear) Urine pH (4.5-7.5) Ur Specific [place] (1.000-1.030) Urine Protein (Negative) Urine Glucose (UA) (Negative) Urine Ketones (Negative) Urine Blood (Negative) Urine Nitrite (Negative) Urine Bilirubin (Negative) Urine Urobilinogen (Negative) Ur Leukocyte Esterase (Negative) Urine WBC (Auto) (0-5) /hpf Urine RBC (Auto) (0-4) /hpf U Hyaline Cast (Auto) (0-5) /lpf U Epithel Cells (Auto) (0-5) /lpf Urine Bacteria (Auto) (Negative) Urine Yeast (None Prsent) SARS-CoV-2, RNA, NAAT (NEGATIVE) Blood Type Blood Type Recheck Antibody Screen Crossmatch 10/09/21 10/09/21 10/09/21 Range/Units 08:18 08:18 07:20 WBC (4.8-10.8) K/uL RBC (4.2-5.4) M/uL Hgb (12.0-16.0) g/dL Hct (37-47) % MCV (80-100) fL MCH (25-34) pg MCHC (32-36) g/dL RDW Std Deviation (36.4-46.3) fL RDW Coeff of Muna (11.5-14.5) % Plt Count (130-400) K/uL MPV (7.4-10.4) fL Immature Gran % (Auto) % Neut % (Auto) % Lymph % (Auto) % [place] % (Auto) % Eos % (Auto) % Baso % (Auto) % Reticulocyte % (Auto) (0.5-2.0) % Neut # (Auto) (1.4-6.5) K/uL Lymph # (Auto) (1.2-3.4) K/uL [place] # (Auto) (0.11-0.59) K/uL Eos # (Auto) (0-0.5) K/uL Baso # (Auto) (0-0.2) K/uL Reticulocyte # (0.02-0.10) 10^6/uL Immature Gran # (Auto) (0.00-0.02) K/uL Polychromasia Hypochromasia Anisocytosis Microcytosis PT (9.0-12.0) Seconds INR (0.9-1.1) Sodium 136 (136-145) mmol/L Potassium 4.4 (3.5-5.1) mmol/L Chloride 107 (98-107) mmol/L Carbon Dioxide 24 (21-32) mmol/L Anion Gap 5 (3-11) BUN 55 H (6-23) mg/dl Creatinine 1.32 H (0.6-1.2) mg/dl Est Cr Clr Drug Dosing 32.6 ml/min Est GFR ( Amer) 44.4 ml/min Est GFR (Non-Af Amer) 38.3 ml/min BUN/Creatinine Ratio 41.7 H (10-20) Glucose 155 H (70-99(Fasting)) mg/dl POC Glucose 143 H (70-99) mg/dl Estimat Average Glucose mg/dl Hemoglobin A1c (4.5-5.6) % Calcium 8.2 L (8.5-10.1) mg/dl Magnesium (1.7-2.4) mg/dl Iron 37 (35-150) mcg/dl TIBC 379 (250-450) mcg/dl Unsaturated IBC 342 (155-355) mcg/dl Transferrin % Sat 10 L (15-50) % Total Bilirubin (0.2-1.0) mg/dl AST (13-39) U/L ALT (7-52) U/L Alkaline Phosphatase (34-104) U/L Troponin I (0-0.04) ng/ml Total Protein (6.0-8.3) gm/dl Albumin (3.4-5.0) gm/dl Globulin (2.5-4.0) gm/dl Albumin/Globulin Ratio (0.9-2) Lipase (11-82) U/L Vitamin B12 Pending Folate Pending Procalcitonin (0-0.5) ng/ml TSH (0.300-4.500) uIu/ml Urine Color Urine Appearance (Clear) Urine pH (4.5-7.5) Ur Specific [place] (1.000-1.030) Urine Protein (Negative) Urine Glucose (UA) (Negative) Urine Ketones (Negative) Urine Blood (Negative) Urine Nitrite (Negative) Urine Bilirubin (Negative) Urine Urobilinogen (Negative) Ur Leukocyte Esterase (Negative) Urine WBC (Auto) (0-5) /hpf Urine RBC (Auto) (0-4) /hpf U Hyaline Cast (Auto) (0-5) /lpf U Epithel Cells (Auto) (0-5) /lpf Urine Bacteria (Auto) (Negative) Urine Yeast (None Prsent) SARS-CoV-2, RNA, NAAT (NEGATIVE) Blood Type Blood Type Recheck Antibody Screen Crossmatch 10/09/21 10/09/21 10/08/21 Range/Units 05:40 01:41 22:40 WBC 9.52 (4.8-10.8) K/uL RBC 2.79 L (4.2-5.4) M/uL Hgb 6.8 L* (12.0-16.0) g/dL Hct 21.7 L (37-47) % MCV 77.8 L (80-100) fL MCH 24.4 L (25-34) pg MCHC 31.3 L (32-36) g/dL RDW Std Deviation 61.0 H (36.4-46.3) fL RDW Coeff of Muna 21.5 H (11.5-14.5) % Plt Count 292 (130-400) K/uL MPV 10.5 H (7.4-10.4) fL Immature Gran % (Auto) 0.1 % Neut % (Auto) 67.2 % Lymph % (Auto) 25.6 % [place] % (Auto) 6.0 % Eos % (Auto) 0.9 % Baso % (Auto) 0.2 % Reticulocyte % (Auto) (0.5-2.0) % Neut # (Auto) 6.39 (1.4-6.5) K/uL Lymph # (Auto) 2.44 (1.2-3.4) K/uL [place] # (Auto) 0.57 (0.11-0.59) K/uL Eos # (Auto) 0.09 (0-0.5) K/uL Baso # (Auto) 0.02 (0-0.2) K/uL Reticulocyte # (0.02-0.10) 10^6/uL Immature Gran # (Auto) 0.01 (0.00-0.02) K/uL Polychromasia Hypochromasia Anisocytosis Present Microcytosis PT (9.0-12.0) Seconds INR (0.9-1.1) Sodium (136-145) mmol/L Potassium (3.5-5.1) mmol/L Chloride (98-107) mmol/L Carbon Dioxide (21-32) mmol/L Anion Gap (3-11) BUN (6-23) mg/dl Creatinine (0.6-1.2) mg/dl Est Cr Clr Drug Dosing ml/min Est GFR ( Amer) ml/min Est GFR (Non-Af Amer) ml/min BUN/Creatinine Ratio (10-20) Glucose (70-99(Fasting)) mg/dl POC Glucose 136 H (70-99) mg/dl Estimat Average Glucose mg/dl Hemoglobin A1c (4.5-5.6) % Calcium (8.5-10.1) mg/dl Magnesium (1.7-2.4) mg/dl Iron (35-150) mcg/dl TIBC (250-450) mcg/dl Unsaturated IBC (155-355) mcg/dl Transferrin % Sat (15-50) % Total Bilirubin (0.2-1.0) mg/dl AST (13-39) U/L ALT (7-52) U/L Alkaline Phosphatase (34-104) U/L Troponin I (0-0.04) ng/ml Total Protein (6.0-8.3) gm/dl Albumin (3.4-5.0) gm/dl Globulin (2.5-4.0) gm/dl Albumin/Globulin Ratio (0.9-2) Lipase (11-82) U/L Vitamin B12 Folate Procalcitonin (0-0.5) ng/ml TSH (0.300-4.500) uIu/ml Urine Color Yellow Urine Appearance Cloudy A (Clear) Urine pH 5.0 (4.5-7.5) Ur Specific [place] 1.033 H (1.000-1.030) Urine Protein Negative (Negative) Urine Glucose (UA) 3+ H (Negative) Urine Ketones Trace H (Negative) Urine Blood 3+ H (Negative) Urine Nitrite Negative (Negative) Urine Bilirubin Negative (Negative) Urine Urobilinogen Negative (Negative) Ur Leukocyte Esterase 2+ H (Negative) Urine WBC (Auto) >30 H (0-5) /hpf Urine RBC (Auto) 0-4 (0-4) /hpf U Hyaline Cast (Auto) 1-5 (0-5) /lpf U Epithel Cells (Auto) 5-10 H (0-5) /lpf Urine Bacteria (Auto) 4+ H (Negative) Urine Yeast Budding A (None Prsent) SARS-CoV-2, RNA, NAAT (NEGATIVE) Blood Type Blood Type Recheck Antibody Screen Crossmatch 10/08/21 10/08/21 10/08/21 Range/Units 20:44 19:45 19:41 WBC 9.55 (4.8-10.8) K/uL RBC 3.01 L (4.2-5.4) M/uL Hgb 7.4 L (12.0-16.0) g/dL Hct 23.7 L (37-47) % MCV 78.7 L (80-100) fL MCH 24.6 L (25-34) pg MCHC 31.2 L (32-36) g/dL RDW Std Deviation 61.2 H (36.4-46.3) fL RDW Coeff of Muna 21.5 H (11.5-14.5) % Plt Count 315 (130-400) K/uL MPV 10.8 H (7.4-10.4) fL Immature Gran % (Auto) 0.2 % Neut % (Auto) 71.7 % Lymph % (Auto) 20.6 % [place] % (Auto) 6.8 % Eos % (Auto) 0.4 % Baso % (Auto) 0.3 % Reticulocyte % (Auto) (0.5-2.0) % Neut # (Auto) 6.84 H (1.4-6.5) K/uL Lymph # (Auto) 1.97 (1.2-3.4) K/uL [place] # (Auto) 0.65 H (0.11-0.59) K/uL Eos # (Auto) 0.04 (0-0.5) K/uL Baso # (Auto) 0.03 (0-0.2) K/uL Reticulocyte # (0.02-0.10) 10^6/uL Immature Gran # (Auto) 0.02 (0.00-0.02) K/uL Polychromasia 1+ Hypochromasia Anisocytosis Present Microcytosis PT (9.0-12.0) Seconds INR (0.9-1.1) Sodium (136-145) mmol/L Potassium (3.5-5.1) mmol/L Chloride (98-107) mmol/L Carbon Dioxide (21-32) mmol/L Anion Gap (3-11) BUN (6-23) mg/dl Creatinine (0.6-1.2) mg/dl Est Cr Clr Drug Dosing ml/min Est GFR ( Amer) ml/min Est GFR (Non-Af Amer) ml/min BUN/Creatinine Ratio (10-20) Glucose (70-99(Fasting)) mg/dl POC Glucose 202 H 162 H (70-99) mg/dl Estimat Average Glucose mg/dl Hemoglobin A1c (4.5-5.6) % Calcium (8.5-10.1) mg/dl Magnesium (1.7-2.4) mg/dl Iron (35-150) mcg/dl TIBC (250-450) mcg/dl Unsaturated IBC (155-355) mcg/dl Transferrin % Sat (15-50) % Total Bilirubin (0.2-1.0) mg/dl AST (13-39) U/L ALT (7-52) U/L Alkaline Phosphatase (34-104) U/L Troponin I (0-0.04) ng/ml Total Protein (6.0-8.3) gm/dl Albumin (3.4-5.0) gm/dl Globulin (2.5-4.0) gm/dl Albumin/Globulin Ratio (0.9-2) Lipase (11-82) U/L Vitamin B12 Folate Procalcitonin (0-0.5) ng/ml TSH (0.300-4.500) uIu/ml Urine Color Urine Appearance (Clear) Urine pH (4.5-7.5) Ur Specific [place] (1.000-1.030) Urine Protein (Negative) Urine Glucose (UA) (Negative) Urine Ketones (Negative) Urine Blood (Negative) Urine Nitrite (Negative) Urine Bilirubin (Negative) Urine Urobilinogen (Negative) Ur Leukocyte Esterase (Negative) Urine WBC (Auto) (0-5) /hpf Urine RBC (Auto) (0-4) /hpf U Hyaline Cast (Auto) (0-5) /lpf U Epithel Cells (Auto) (0-5) /lpf Urine Bacteria (Auto) (Negative) Urine Yeast (None Prsent) SARS-CoV-2, RNA, NAAT (NEGATIVE) Blood Type Blood Type Recheck Antibody Screen Crossmatch 10/08/21 10/08/21 10/08/21 Range/Units 18:16 18:16 18:10 WBC (4.8-10.8) K/uL RBC (4.2-5.4) M/uL Hgb (12.0-16.0) g/dL Hct (37-47) % MCV (80-100) fL MCH (25-34) pg MCHC (32-36) g/dL RDW Std Deviation (36.4-46.3) fL RDW Coeff of Muna (11.5-14.5) % Plt Count (130-400) K/uL MPV (7.4-10.4) fL Immature Gran % (Auto) % Neut % (Auto) % Lymph % (Auto) % [place] % (Auto) % Eos % (Auto) % Baso % (Auto) % Reticulocyte % (Auto) (0.5-2.0) % Neut # (Auto) (1.4-6.5) K/uL Lymph # (Auto) (1.2-3.4) K/uL [place] # (Auto) (0.11-0.59) K/uL Eos # (Auto) (0-0.5) K/uL Baso # (Auto) (0-0.2) K/uL Reticulocyte # (0.02-0.10) 10^6/uL Immature Gran # (Auto) (0.00-0.02) K/uL Polychromasia Hypochromasia Anisocytosis Microcytosis PT (9.0-12.0) Seconds INR (0.9-1.1) Sodium 138 (136-145) mmol/L Potassium 4.3 (3.5-5.1) mmol/L Chloride 107 (98-107) mmol/L Carbon Dioxide 24 (21-32) mmol/L Anion Gap 7 (3-11) BUN 60 H (6-23) mg/dl Creatinine 1.26 H (0.6-1.2) mg/dl Est Cr Clr Drug Dosing 31.9 ml/min Est GFR ( Amer) 46.9 ml/min Est GFR (Non-Af Amer) 40.5 ml/min BUN/Creatinine Ratio 47.6 H (10-20) Glucose 120 H (70-99(Fasting)) mg/dl POC Glucose 127 H (70-99) mg/dl Estimat Average Glucose mg/dl Hemoglobin A1c (4.5-5.6) % Calcium 8.5 (8.5-10.1) mg/dl Magnesium (1.7-2.4) mg/dl Iron (35-150) mcg/dl TIBC (250-450) mcg/dl Unsaturated IBC (155-355) mcg/dl Transferrin % Sat (15-50) % Total Bilirubin (0.2-1.0) mg/dl AST (13-39) U/L ALT (7-52) U/L Alkaline Phosphatase (34-104) U/L Troponin I (0-0.04) ng/ml Total Protein (6.0-8.3) gm/dl Albumin (3.4-5.0) gm/dl Globulin (2.5-4.0) gm/dl Albumin/Globulin Ratio (0.9-2) Lipase (11-82) U/L Vitamin B12 Folate Procalcitonin 0.32 (0-0.5) ng/ml TSH (0.300-4.500) uIu/ml Urine Color Urine Appearance (Clear) Urine pH (4.5-7.5) Ur Specific [place] (1.000-1.030) Urine Protein (Negative) Urine Glucose (UA) (Negative) Urine Ketones (Negative) Urine Blood (Negative) Urine Nitrite (Negative) Urine Bilirubin (Negative) Urine Urobilinogen (Negative) Ur Leukocyte Esterase (Negative) Urine WBC (Auto) (0-5) /hpf Urine RBC (Auto) (0-4) /hpf U Hyaline Cast (Auto) (0-5) /lpf U Epithel Cells (Auto) (0-5) /lpf Urine Bacteria (Auto) (Negative) Urine Yeast (None Prsent) SARS-CoV-2, RNA, NAAT (NEGATIVE) Blood Type Blood Type Recheck Antibody Screen Crossmatch 10/08/21 10/08/21 10/08/21 Range/Units 14:17 14:00 13:04 WBC (4.8-10.8) K/uL RBC (4.2-5.4) M/uL Hgb (12.0-16.0) g/dL Hct (37-47) % MCV (80-100) fL MCH (25-34) pg MCHC (32-36) g/dL RDW Std Deviation (36.4-46.3) fL RDW Coeff of Muna (11.5-14.5) % Plt Count (130-400) K/uL MPV (7.4-10.4) fL Immature Gran % (Auto) % Neut % (Auto) % Lymph % (Auto) % [place] % (Auto) % Eos % (Auto) % Baso % (Auto) % Reticulocyte % (Auto) (0.5-2.0) % Neut # (Auto) (1.4-6.5) K/uL Lymph # (Auto) (1.2-3.4) K/uL [place] # (Auto) (0.11-0.59) K/uL Eos # (Auto) (0-0.5) K/uL Baso # (Auto) (0-0.2) K/uL Reticulocyte # (0.02-0.10) 10^6/uL Immature Gran # (Auto) (0.00-0.02) K/uL Polychromasia Hypochromasia Anisocytosis Microcytosis PT (9.0-12.0) Seconds INR (0.9-1.1) Sodium (136-145) mmol/L Potassium (3.5-5.1) mmol/L Chloride (98-107) mmol/L Carbon Dioxide (21-32) mmol/L Anion Gap (3-11) BUN (6-23) mg/dl Creatinine (0.6-1.2) mg/dl Est Cr Clr Drug Dosing ml/min Est GFR ( Amer) ml/min Est GFR (Non-Af Amer) ml/min BUN/Creatinine Ratio (10-20) Glucose (70-99(Fasting)) mg/dl POC Glucose 212 H (70-99) mg/dl Estimat Average Glucose mg/dl Hemoglobin A1c (4.5-5.6) % Calcium (8.5-10.1) mg/dl Magnesium (1.7-2.4) mg/dl Iron (35-150) mcg/dl TIBC (250-450) mcg/dl Unsaturated IBC (155-355) mcg/dl Transferrin % Sat (15-50) % Total Bilirubin (0.2-1.0) mg/dl AST (13-39) U/L ALT (7-52) U/L Alkaline Phosphatase (34-104) U/L Troponin I (0-0.04) ng/ml Total Protein (6.0-8.3) gm/dl Albumin (3.4-5.0) gm/dl Globulin (2.5-4.0) gm/dl Albumin/Globulin Ratio (0.9-2) Lipase (11-82) U/L Vitamin B12 Folate Procalcitonin (0-0.5) ng/ml TSH (0.300-4.500) uIu/ml Urine Color Urine Appearance (Clear) Urine pH (4.5-7.5) Ur Specific [place] (1.000-1.030) Urine Protein (Negative) Urine Glucose (UA) (Negative) Urine Ketones (Negative) Urine Blood (Negative) Urine Nitrite (Negative) Urine Bilirubin (Negative) Urine Urobilinogen (Negative) Ur Leukocyte Esterase (Negative) Urine WBC (Auto) (0-5) /hpf Urine RBC (Auto) (0-4) /hpf U Hyaline Cast (Auto) (0-5) /lpf U Epithel Cells (Auto) (0-5) /lpf Urine Bacteria (Auto) (Negative) Urine Yeast (None Prsent) SARS-CoV-2, RNA, NAAT NEGATIVE (NEGATIVE) Blood Type Blood Type Recheck A Negative Antibody Screen Crossmatch 10/08/21 10/08/21 10/08/21 Range/Units 11:50 11:50 11:00 WBC (4.8-10.8) K/uL RBC (4.2-5.4) M/uL Hgb 6.5 L* (12.0-16.0) g/dL Hct 20.9 L* (37-47) % MCV (80-100) fL MCH (25-34) pg MCHC (32-36) g/dL RDW Std Deviation (36.4-46.3) fL RDW Coeff of Muna (11.5-14.5) % Plt Count (130-400) K/uL MPV (7.4-10.4) fL Immature Gran % (Auto) % Neut % (Auto) % Lymph % (Auto) % [place] % (Auto) % Eos % (Auto) % Baso % (Auto) % Reticulocyte % (Auto) 3.2 H (0.5-2.0) % Neut # (Auto) (1.4-6.5) K/uL Lymph # (Auto) (1.2-3.4) K/uL [place] # (Auto) (0.11-0.59) K/uL Eos # (Auto) (0-0.5) K/uL Baso # (Auto) (0-0.2) K/uL Reticulocyte # 0.09 (0.02-0.10) 10^6/uL Immature Gran # (Auto) (0.00-0.02) K/uL Polychromasia Hypochromasia Anisocytosis Microcytosis PT (9.0-12.0) Seconds INR (0.9-1.1) Sodium (136-145) mmol/L Potassium (3.5-5.1) mmol/L Chloride (98-107) mmol/L Carbon Dioxide (21-32) mmol/L Anion Gap (3-11) BUN (6-23) mg/dl Creatinine (0.6-1.2) mg/dl Est Cr Clr Drug Dosing ml/min Est GFR ( Amer) ml/min Est GFR (Non-Af Amer) ml/min BUN/Creatinine Ratio (10-20) Glucose (70-99(Fasting)) mg/dl POC Glucose (70-99) mg/dl Estimat Average Glucose mg/dl Hemoglobin A1c (4.5-5.6) % Calcium (8.5-10.1) mg/dl Magnesium (1.7-2.4) mg/dl Iron (35-150) mcg/dl TIBC (250-450) mcg/dl Unsaturated IBC (155-355) mcg/dl Transferrin % Sat (15-50) % Total Bilirubin (0.2-1.0) mg/dl AST (13-39) U/L ALT (7-52) U/L Alkaline Phosphatase (34-104) U/L Troponin I (0-0.04) ng/ml Total Protein (6.0-8.3) gm/dl Albumin (3.4-5.0) gm/dl Globulin (2.5-4.0) gm/dl Albumin/Globulin Ratio (0.9-2) Lipase (11-82) U/L Vitamin B12 Folate Procalcitonin (0-0.5) ng/ml TSH (0.300-4.500) uIu/ml Urine Color Urine Appearance (Clear) Urine pH (4.5-7.5) Ur Specific [place] (1.000-1.030) Urine Protein (Negative) Urine Glucose (UA) (Negative) Urine Ketones (Negative) Urine Blood (Negative) Urine Nitrite (Negative) Urine Bilirubin (Negative) Urine Urobilinogen (Negative) Ur Leukocyte Esterase (Negative) Urine WBC (Auto) (0-5) /hpf Urine RBC (Auto) (0-4) /hpf U Hyaline Cast (Auto) (0-5) /lpf U Epithel Cells (Auto) (0-5) /lpf Urine Bacteria (Auto) (Negative) Urine Yeast (None Prsent) SARS-CoV-2, RNA, NAAT (NEGATIVE) Blood Type A Negative Blood Type Recheck Antibody Screen NEGATIVE Crossmatch See Detail 10/08/21 10/08/21 10/08/21 Range/Units 11:00 11:00 11:00 WBC (4.8-10.8) K/uL RBC (4.2-5.4) M/uL Hgb (12.0-16.0) g/dL Hct (37-47) % MCV (80-100) fL MCH (25-34) pg MCHC (32-36) g/dL RDW Std Deviation (36.4-46.3) fL RDW Coeff of Muna (11.5-14.5) % Plt Count (130-400) K/uL MPV (7.4-10.4) fL Immature Gran % (Auto) % Neut % (Auto) % Lymph % (Auto) % [place] % (Auto) % Eos % (Auto) % Baso % (Auto) % Reticulocyte % (Auto) (0.5-2.0) % Neut # (Auto) (1.4-6.5) K/uL Lymph # (Auto) (1.2-3.4) K/uL [place] # (Auto) (0.11-0.59) K/uL Eos # (Auto) (0-0.5) K/uL Baso # (Auto) (0-0.2) K/uL Reticulocyte # (0.02-0.10) 10^6/uL Immature Gran # (Auto) (0.00-0.02) K/uL Polychromasia Hypochromasia Anisocytosis Microcytosis PT 33.1 H (9.0-12.0) Seconds INR 3.6 H (0.9-1.1) Sodium 136 (136-145) mmol/L Potassium 4.3 (3.5-5.1) mmol/L Chloride 105 (98-107) mmol/L Carbon Dioxide 19 L (21-32) mmol/L Anion Gap 12 H (3-11) BUN 66 H (6-23) mg/dl Creatinine 1.30 H (0.6-1.2) mg/dl Est Cr Clr Drug Dosing 30.9 ml/min Est GFR ( Amer) 45.2 ml/min Est GFR (Non-Af Amer) 39.0 ml/min BUN/Creatinine Ratio 50.8 H (10-20) Glucose 325 H* (70-99(Fasting)) mg/dl POC Glucose (70-99) mg/dl Estimat Average Glucose mg/dl Hemoglobin A1c (4.5-5.6) % Calcium 8.7 (8.5-10.1) mg/dl Magnesium 2.2 (1.7-2.4) mg/dl Iron (35-150) mcg/dl TIBC (250-450) mcg/dl Unsaturated IBC (155-355) mcg/dl Transferrin % Sat (15-50) % Total Bilirubin 0.4 (0.2-1.0) mg/dl AST 16 (13-39) U/L ALT 10 (7-52) U/L Alkaline Phosphatase 60 (34-104) U/L Troponin I 0.03 (0-0.04) ng/ml Total Protein 6.3 (6.0-8.3) gm/dl Albumin 3.2 L (3.4-5.0) gm/dl Globulin 3.1 (2.5-4.0) gm/dl Albumin/Globulin Ratio 1.0 (0.9-2) Lipase 63 (11-82) U/L Vitamin B12 Folate Procalcitonin (0-0.5) ng/ml TSH 2.237 (0.300-4.500) uIu/ml Urine Color Urine Appearance (Clear) Urine pH (4.5-7.5) Ur Specific [place] (1.000-1.030) Urine Protein (Negative) Urine Glucose (UA) (Negative) Urine Ketones (Negative) Urine Blood (Negative) Urine Nitrite (Negative) Urine Bilirubin (Negative) Urine Urobilinogen (Negative) Ur Leukocyte Esterase (Negative) Urine WBC (Auto) (0-5) /hpf Urine RBC (Auto) (0-4) /hpf U Hyaline Cast (Auto) (0-5) /lpf U Epithel Cells (Auto) (0-5) /lpf Urine Bacteria (Auto) (Negative) Urine Yeast (None Prsent) SARS-CoV-2, RNA, NAAT (NEGATIVE) Blood Type Blood Type Recheck Antibody Screen Crossmatch 10/08/21 10/08/21 Range/Units 11:00 10:22 WBC 12.31 H (4.8-10.8) K/uL RBC 2.94 L (4.2-5.4) M/uL Hgb 6.8 L* (12.0-16.0) g/dL Hct 22.4 L (37-47) % MCV 76.2 L (80-100) fL MCH 23.1 L (25-34) pg MCHC 30.4 L (32-36) g/dL RDW Std Deviation 62.3 H (36.4-46.3) fL RDW Coeff of [place] 23.4 H (11.5-14.5) % Plt Count 366 (130-400) K/uL MPV 11.2 H (7.4-10.4) fL Immature Gran % (Auto) 0.2 % Neut % (Auto) 85.3 % Lymph % (Auto) 10.2 % [place] % (Auto) 3.7 % Eos % (Auto) 0.2 % Baso % (Auto) 0.4 % Reticulocyte % (Auto) (0.5-2.0) % Neut # (Auto) 10.49 H (1.4-6.5) K/uL Lymph # (Auto) 1.26 (1.2-3.4) K/uL [place] # (Auto) 0.46 (0.11-0.59) K/uL Eos # (Auto) 0.03 (0-0.5) K/uL Baso # (Auto) 0.05 (0-0.2) K/uL Reticulocyte # (0.02-0.10) 10^6/uL Immature Gran # (Auto) 0.02 (0.00-0.02) K/uL Polychromasia Hypochromasia Present Anisocytosis Present Microcytosis Present PT (9.0-12.0) Seconds INR (0.9-1.1) Sodium (136-145) mmol/L Potassium (3.5-5.1) mmol/L Chloride (98-107) mmol/L Carbon Dioxide (21-32) mmol/L Anion Gap (3-11) BUN (6-23) mg/dl Creatinine (0.6-1.2) mg/dl Est Cr Clr Drug Dosing ml/min Est GFR ( Amer) ml/min Est GFR (Non-Af Amer) ml/min BUN/Creatinine Ratio (10-20) Glucose (70-99(Fasting)) mg/dl POC Glucose 296 H (70-99) mg/dl Estimat Average Glucose mg/dl Hemoglobin A1c (4.5-5.6) % Calcium (8.5-10.1) mg/dl Magnesium (1.7-2.4) mg/dl Iron (35-150) mcg/dl TIBC (250-450) mcg/dl Unsaturated IBC (155-355) mcg/dl Transferrin % Sat (15-50) % Total Bilirubin (0.2-1.0) mg/dl AST (13-39) U/L ALT (7-52) U/L Alkaline Phosphatase (34-104) U/L Troponin I (0-0.04) ng/ml Total Protein (6.0-8.3) gm/dl Albumin (3.4-5.0) gm/dl Globulin (2.5-4.0) gm/dl Albumin/Globulin Ratio (0.9-2) Lipase (11-82) U/L Vitamin B12 Folate Procalcitonin (0-0.5) ng/ml TSH (0.300-4.500) uIu/ml Urine Color Urine Appearance (Clear) Urine pH (4.5-7.5) Ur Specific [place] (1.000-1.030) Urine Protein (Negative) Urine Glucose (UA) (Negative) Urine Ketones (Negative) Urine Blood (Negative) Urine Nitrite (Negative) Urine Bilirubin (Negative) Urine Urobilinogen (Negative) Ur Leukocyte Esterase (Negative) Urine WBC (Auto) (0-5) /hpf Urine RBC (Auto) (0-4) /hpf U Hyaline Cast (Auto) (0-5) /lpf U Epithel Cells (Auto) (0-5) /lpf Urine Bacteria (Auto) (Negative) Urine Yeast (None Prsent) SARS-CoV-2, RNA, NAAT (NEGATIVE) Blood Type Blood Type Recheck Antibody Screen Crossmatch
[2021-10-09 09:26] LABS: Folate (Folic Acid) 14.11 ng/ml (>5.38)
[2021-10-09] MEDS: PANTOprazole 40 MG in DEXTROSE 5% 100 ML IV SCH ×3 (09:40→21:26)
[2021-10-09] MEDS: FENOFIBRATE NANOCRYSTALLIZED 145 MG TABLET PO SCH (10:00)
--- NOTE | 2021-10-09 10:39 | Hospitalist Progress Note ---
Date of Service October 09, 2021 Assessment & Plan (1) Acute blood loss anemia: Plan: - Suspect this has been a slow gradual blood loss likely in the setting of Coumadin and currently supratherapeutic INRs (patient doesn't seem to track this very often) - She is currently hemodynamically stable - Hgb was 6.5 on admission which improved with 1 units PRBC however worsened. However after an additional 2 units her Hgb is 9.7 - She reports chronic dark stool but is on iron supplementation and endorses intermittent epigastric pain - suspect possible PUD -- BUN also elevated at 66 which could support GI bleed - Will initiate Protonix gtt for now - Reverse Coumadin as INR at 4.0 - Continue to monitor Hgb and transfuse as needed - Consult GI - EGD/Colonoscopy scheduled for Tuesday - follow diet recommendations for weekend and prep prior to procedure (2) Gastrointestinal bleed: Plan: - See above (3) UTI (urinary tract infection): Plan: - Reports being on Abx recently but cannot tell me what. 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 (maybe removed from it?);she states she lives with her son so maybe can clarify medications -- External pharmacy record with Jardiance and Metformin listed - BSG 300+ on admission and will monitor - Glycemic management on board - appreciate assistance (5) Atrial fibrillation: Plan: - Possible chronic; rate controlled - Hold Coumadin due to suspected GI bleed; Diltazem 120 mg daily (6) CKD (chronic kidney disease): Plan: - Limited labs to review but possible baseline 1.2-1.3 -- currently at baseline - Electrolytes acceptable; BUN elevated but possibly due to GI bleed? - Will allow Lasix for now given 3 units PRBCs but plan to hold on Tuesday prior to getting scopes on Tuesday Plan: Plan on EGD/Colonoscopy on Tuesday; Attempted to call son but mailbox is full. Will try later today or if he comes to visit Admission and Anticipated Discharge Date Admission Date: October 08, 2021 Subjective Patient had one transfusion with good response. However Hgb decreased again requiring an additional 2 units. Hgb currently 9.7 and vitals are stable. She does report intermittent epigastric pain but doing well right now. Continues to have urinary symptoms. She denies CP, SOB, dizziness. She does not recall ever having a EGD/colonscopy in the past. She reports having dark stool but has been taking iron supplements. No further nausea/vomiting and denies hematemesis/coffee ground emesis. Review of Systems Review of Systems: All systems reviewed & are unremarkable except as noted in Subjective Physical Exam Physical Exam: PHYSICAL EXAM General Appearance: WDWN in NAD who is A&O x 3 HEENT: Head is normocephalic/atraumatic; Hearing grossly intact Neck: Supple; Trachea midline; Neg JVD Heart: Regular rate but irregularly irregular Lungs: CTA in all lung heck bilaterally; Respirations unlabored; Neg accessory muscle use Abdomen: Soft, non-tender, non-distended; Positive BS x 4 quadrants Extremities: Neg cyanosis or edema Neurological: Speech clear; Gross motor/sensory function intact; Neg focal neurologic deficits Psychiatric: Appropriate mood/affect Skin: Normal Color; Warm/Dry Results & Data Results & Data ([facility]) Vital Signs (Past 12 Hours) Vital Signs Temp Pulse Pulse Resp BP BP Pulse Ox 10/09/21 07:30 36.9 C 89 14 122/72 96 10/09/21 06:11 37 C 90 18 128/79 96 10/09/21 05:20 37.1 C 94 H 18 103/69 98 10/09/21 04:20 36.8 C 90 18 132/77 97 10/09/21 03:50 36.3 C L 96 H 18 126/77 96 10/09/21 03:35 36.8 C 92 H 16 109/73 95 10/09/21 03:19 36.7 C 93 H 18 114/76 95 10/09/21 01:51 36.8 C 90 18 119/77 96 10/09/21 01:35 37 C 94 H 18 119/76 94 10/09/21 00:38 94 H 10/09/21 00:35 36.7 C 95 H 18 119/80 98 10/09/21 00:05 37.1 C 94 H 18 106/72 95 10/08/21 23:50 37.1 C 93 H 16 101/68 95 10/08/21 23:34 37.1 C 95 H 16 103/70 95 PG Care Time/CCT Total # of Minutes Spent Total Time Spent with Patient: Total time spent is greater than 50% in coordination of care (as documented) at patient's floor/unit and/or counseling patient: Coding Level of Care Code 50133 Subseq Hosp Care Lvl 3 Diagnoses Acute blood loss anemia D62 Gastrointestinal bleed K92.2 UTI (urinary tract infection) N39.0 DM2 (diabetes mellitus, type 2) E11.9 Atrial fibrillation I48.91 CKD (chronic kidney disease) N18.9
[2021-10-09] MEDS ORDERED: PHYTONADIONE 10 MG in DEXTROSE 5% 50 ML IV ONE (11:00)
[2021-10-09] MEDS: cefTRIAXone SODIUM 2,000 MG in DEXTROSE 5% 50 ML IV SCH (11:00)
[2021-10-09] MEDS: LACTATED RINGER'S 1,000 ML IV SCH (12:30)
[2021-10-09] MEDS: INSULIN GLARGINE SOLOSTAR 100 UNITS/ML 3 ML PEN SC SCH ×2 (12:35→20:39)
--- NOTE | 2021-10-09 15:26 | Pharmacy Report ---
Pharmacy Glycemic Short Note 2 - Date of Service October 09, 2021 - Glycemic Short BSG Results (Last 24 hours): 10/08/21 10/08/21 10/08/21 18:10 18:16 19:45 Glucose 120 H POC Glucose 127 H 162 H 10/08/21 10/09/21 10/09/21 20:44 01:41 07:20 Glucose POC Glucose 202 H 136 H 143 H 10/09/21 10/09/21 08:18 11:21 Glucose 155 H POC Glucose 156 H OUTPATIENT ANTIDIABETIC REGIMEN: * A1c 7.3% * Jardiance, metformin * Patient reports not filling insulin since Fall 2020 ASSESSMENT: * Myranda is a 81 yo female admitted for gastrointestinal bleeding. Colonoscopy scheduled for Tuesday. * Oral agents held on admission - patient started on SQ basal + bolus insulin * Significant improvement in glycemic control overnight with minimal insulin - will titrate conservatively PLAN FOR INPATIENT GLYCEMIC CONTROL: * Hold outpatient oral diabetes medications * Basal insulin * Lantus 0-6 units SQ BID based on BSG * Bolus insulin * NovoLog per scale ACHS or Q6hrs while NPO * Goal Range: Low 110 mg/dL - High 140 mg/dL * Correction Factor: 30 mg/dL/unit * Nutritional / Prandial insulin per carb ratio of 1 unit per 10 grams CHO consumed PLAN FOR DISCHARGE: * tbd
[2021-10-09] MEDS ORDERED: WARFARIN SOD 2.5 MG TAB PO SCH (16:00)
[2021-10-10] MEDS: LACTATED RINGER'S 1,000 ML IV SCH (02:13)
[2021-10-10] MEDS: PANTOprazole 40 MG in DEXTROSE 5% 100 ML IV SCH ×5 (02:23→20:56)
[2021-10-10] MEDS: ONDANSETRON INJ 2 MG/ML 2 ML VIAL IV PRN (02:33)
[2021-10-10] MEDS ORDERED: Nursing to Pharmacy Communication SCH (07:15)
[2021-10-10] MEDS: dilTIAZem HCL 120 MG CAPCR PO SCH (07:30)
[2021-10-10] MEDS: FENOFIBRATE NANOCRYSTALLIZED 145 MG TABLET PO SCH (07:30)
[2021-10-10] MEDS: FUROSEMIDE 40 MG TAB PO SCH (07:30)
[2021-10-10] MEDS: ROSUVASTATIN CALCIUM 20 MG TAB PO SCH (07:30)
[2021-10-10] MEDS: cefTRIAXone SODIUM 2,000 MG in DEXTROSE 5% 50 ML IV SCH (07:33)
[2021-10-10 07:51] LABS: INR 1.2 (0.9-1.1); Prothrombin Time 11.9 Seconds (9.0-12.0)
[2021-10-10] MEDS: INSULIN GLARGINE SOLOSTAR 100 UNITS/ML 3 ML PEN SC SCH ×2 (07:52→20:55)
[2021-10-10] MEDS: INSULIN ASPART PER UNIT SC SCH ×4 (08:16→20:55)
[2021-10-10 09:21] LABS: Hemoglobin 8.5 g/dL (12.0-16.0); Mean Corpuscular Hemoglobin 25.8 pg (25-34); Mean Corpuscular Hgb Conc 31.5 g/dL (32-36); Mean Corpuscular Volume 81.8 fL (80-100); Mean Platelet Volume 10.9 fL (7.4-10.4); Nucleated RBC # (auto) 0.02 K/uL (0-0); Nucleated RBC % (auto) 0.3 %; Platelet Count 284 K/uL (130-400); RDW Coefficient of Variation 19.5 % (11.5-14.5); RDW Standard Deviation 59.1 fL (36.4-46.3)
[2021-10-10 09:57] LABS: BUN Creatinine Ratio 39.3 (10-20); Calcium 7.9 mg/dl (8.5-10.1); Creatinine Clr Calc Pharmacy 37.6 ml/min; Est GFR (African American) 51.3 ml/min; Est GFR (Non-African American) 44.3 ml/min; Potassium 3.7 mmol/L (3.5-5.1)
--- NOTE | 2021-10-10 11:02 | Hospitalist Progress Note ---
Date of Service October 10, 2021 Assessment & Plan (1) Acute blood loss anemia: Plan: - Suspect this has been a slow gradual blood loss likely in the setting of Coumadin and currently supratherapeutic INRs (patient doesn't seem to track this very often) - She is currently hemodynamically stable - Hgb was 6.5 on admission which improved with 1 units PRBC however worsened. However after an additional 2 units her Hgb is 9.7 -- Hbg at 8.5 and asymptomatic and will recheck later today - She reports chronic dark stool but is on iron supplementation and endorses intermittent epigastric pain - suspect possible PUD -- BUN also elevated at 66 on admission which could support GI bleed - Continue Protonix gtt x 72 hrs but could move to BID IVP per GI recommendations then would likely need BID PPI on D/C - Reverse Coumadin - INR now at 1.2 - Continue to monitor Hgb and transfuse as needed - Consult GI - EGD/Colonoscopy scheduled for Tuesday - plan to switch to clear liquid diet on Tuesday and bowel prep (2) Gastrointestinal bleed: Plan: - See above (3) UTI (urinary tract infection): Plan: - Reports being on Abx recently but cannot tell me what. 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 (maybe removed from it?);she states she lives with her son so maybe can clarify medications -- He thought she was supposed to be on insulin but is not sure of coverage and was going to look into this - he does state she just recently moved PCPs -- External pharmacy record with Jardiance and Metformin listed - BSG 300+ on admission and will monitor - Glycemic management on board - appreciate assistance (5) Atrial fibrillation: Plan: - Possible chronic; rate controlled - Hold Coumadin due to suspected GI bleed; Diltazem 120 mg daily (6) CKD (chronic kidney disease): Plan: - Limited labs to review but possible baseline 1.2-1.3 -- currently at baseline - Electrolytes acceptable; BUN elevated but possibly due to GI bleed? - Hold Lasix Plan: - Plan on EGD/Colonoscopy on Tuesday; Discussed with son at bedside - Appears PCP is [facility] provider. Awaiting clarification. Can keep patient on our service but recommend appropriate placement to [facility] Hospitalists should repeat hospitalizations occur for better continuity with PCP Admission and Anticipated Discharge Date Admission Date: October 10, 2021 Subjective No acute events overnight. States she is very fatigued today and was not able to sleep well overnight. She reports a mild headache yesterday that resolved. No abdominal pain today and tolerating a diet. Hgb did slightly drop but no ind ication for transfusion right now. BP is softer but asymptomatic. Did help her from the chair to bed and she is strong and largely able to do it independently. She denied any dizziness with standing up. No CP or SOB. Review of Systems Review of Systems: All systems reviewed & are unremarkable except as noted in Subjective Physical Exam Physical Exam: PHYSICAL EXAM General Appearance: WDWN in NAD who is A&O x 3 HEENT: Head is normocephalic/atraumatic; Hearing grossly intact Neck: Supple; Trachea midline; Neg JVD Heart: Regular rate but irregularly irregular Lungs: CTA in all lung heck bilaterally; Respirations unlabored; Neg accessory muscle use Abdomen: Soft, non-tender, non-distended; Positive BS x 4 quadrants Extremities: Neg cyanosis or edema Neurological: Speech clear; Gross motor/sensory function intact; Neg focal neur ologic deficits Psychiatric: Appropriate mood/affect Skin: Normal Color; Warm/Dry Results & Data Results & Data ([facility]) Vital Signs (Past 12 Hours) Vital Signs Temp Pulse Pulse Resp BP Pulse Ox 10/10/21 08:09 36.8 C 89 20 103/59 L 95 10/10/21 03:13 36.7 C 87 20 113/65 96 10/09/21 23:14 67 10/09/21 23:10 36.9 C 61 20 100/62 97 PG Care Time/CCT Total # of Minutes Spent Total Time Spent with Patient: Total time spent is greater than 50% in coordination of care (as documented) at patient's floor/unit and/or counseling patient: Coding Level of Care Code 92553 Subseq Hosp Care Lvl 3 Diagnoses Acute blood loss anemia D62 Gastrointestinal bleed K92.2 UTI (urinary tract infection) N39.0 DM2 (diabetes mellitus, type 2) E11.9 Atrial fibrillation I48.91 CKD (chronic kidney disease) N18.9
[2021-10-10] MEDS ORDERED: INSULIN GLARGINE SOLOSTAR 100 UNITS/ML 3 ML PEN SC ONE (12:00)
[2021-10-10 20:12] LABS: Hematocrit (blood only) 24.4 % (37-47); Hemoglobin 7.7 g/dL (12.0-16.0); Mean Corpuscular Hgb Conc 31.6 g/dL (32-36); Mean Corpuscular Volume 82.4 fL (80-100); Mean Platelet Volume 10.2 fL (7.4-10.4); Platelet Count 260 K/uL (130-400); RDW Coefficient of Variation 19.4 % (11.5-14.5); RDW Standard Deviation 59.6 fL (36.4-46.3); Red Blood Count 2.96 M/uL (4.2-5.4); White Blood Count 6.23 K/uL (4.8-10.8)
[2021-10-11] MEDS: PANTOprazole 40 MG in DEXTROSE 5% 100 ML IV SCH ×5 (02:16→21:06)
[2021-10-11 06:59] LABS: Hematocrit (blood only) 23.9 % (37-47); Hemoglobin 7.6 g/dL (12.0-16.0); Mean Corpuscular Hemoglobin 25.9 pg (25-34); Mean Corpuscular Hgb Conc 31.8 g/dL (32-36); Mean Corpuscular Volume 81.6 fL (80-100); Mean Platelet Volume 10.3 fL (7.4-10.4); Platelet Count 265 K/uL (130-400); RDW Coefficient of Variation 19.7 % (11.5-14.5); RDW Standard Deviation 59.3 fL (36.4-46.3); Red Blood Count 2.93 M/uL (4.2-5.4)
[2021-10-11 07:22] LABS: INR 1.1 (0.9-1.1); Prothrombin Time 10.9 Seconds (9.0-12.0)
[2021-10-11 07:24] LABS: BUN Creatinine Ratio 32.7 (10-20); Calcium 7.9 mg/dl (8.5-10.1); Creatinine Clr Calc Pharmacy 41.3 ml/min; Est GFR (African American) 57.2 ml/min; Est GFR (Non-African American) 49.3 ml/min; Potassium 4.1 mmol/L (3.5-5.1)
[2021-10-11] MEDS: INSULIN ASPART PER UNIT SC SCH ×4 (07:57→20:49)
[2021-10-11] MEDS: INSULIN GLARGINE SOLOSTAR 100 UNITS/ML 3 ML PEN SC SCH ×2 (07:58→20:49)
[2021-10-11] MEDS: cefTRIAXone SODIUM 2,000 MG in DEXTROSE 5% 50 ML IV SCH (07:58)
[2021-10-11] MEDS: dilTIAZem HCL 120 MG CAPCR PO SCH (07:59)
[2021-10-11] MEDS: FENOFIBRATE NANOCRYSTALLIZED 145 MG TABLET PO SCH (07:59)
[2021-10-11] MEDS: ROSUVASTATIN CALCIUM 20 MG TAB PO SCH (07:59)
--- NOTE | 2021-10-11 09:08 | Pharmacy Report ---
Pharmacy Glycemic Short Note 2 - Date of Service October 11, 2021 - Glycemic Short BSG Results (Last 24 hours): 10/10/21 10/10/21 10/10/21 08:59 11:31 16:28 Glucose 125 H POC Glucose 169 H 218 H 10/10/21 10/11/21 10/11/21 20:09 06:18 07:36 Glucose 129 H POC Glucose 134 H 135 H OUTPATIENT ANTIDIABETIC REGIMEN: * A1c 7.3% (10/09/21) * Jardiance, metformin * Patient reports not filling insulin since Fall 2020 ASSESSMENT: 10/11 * BSGs yesterday of 132, 169, 218, and 134 mg/dL, fasting BSG of 135 mg/dL this morning * Received 29 units of insulin (12 units of basal and 17 units of prandi al/correctional bolus insulin) * Will slightly tighten Novolog carb coverage today * Diet changed to clears today, bowel prep this evening in preparation for colonoscopy tomorrow 10/12 * Will likely decrease HS basal this evening in light of NPO tomorrow Background: * Myranda is a 81 yo female admitted for gastrointestinal bleeding. Colonoscopy scheduled for Tuesday. * Oral agents held on admission - patient started on SQ basal + bolus insulin * Significant improvement in glycemic control overnight with minimal insulin - will titrate conservatively PLAN FOR INPATIENT GLYCEMIC CONTROL: * Hold outpatient oral diabetes medications * Basal insulin * Lantus 0-6 units SQ BID based on BSG (see EHR for details) * Bolus insulin * NovoLog per scale ACHS or Q6hrs while NPO * Goal Range: Low 110 mg/dL - High 140 mg/dL * Correction Factor: 30 mg/dL/unit * Nutritional / Prandial insulin per carb ratio of 1 unit per 9 grams CHO co nsumed PLAN FOR DISCHARGE: * HbA1c of 7.3% is reasonable for patient based on age and comorbidities * Continue current outpatient regimen at discharge, provided no contraindications present
--- NOTE | 2021-10-11 10:19 | Hospitalist Progress Note ---
Date of Service October 11, 2021 Assessment & Plan (1) Acute blood loss anemia: Plan: - Suspect this has been a slow gradual blood loss likely in the setting of Coumadin and currently supratherapeutic INRs (patient doesn't seem to track this very often) - She is currently hemodynamically stable - Hgb was 6.5 on admission which improved with 1 units PRBC however worsened. However after an additional 2 units her Hgb is 9.7 but continues to trend down but vital signs are stable -- Hbg at 7.6 and asymptomatic and will recheck later today and in the a.m. - She reports chronic dark stool but is on iron supplementation and endorses intermittent epigastric pain - suspect possible PUD -- BUN also elevated at 66 on admission which could support GI bleed - Continue Protonix gtt x 72 hrs but could move to BID IVP per GI recommendations then would likely need BID PPI on D/C - Reverse Coumadin - INR now at 1.1 - Continue to monitor Hgb and transfuse as needed - Consult GI - EGD/Colonoscopy scheduled for Tuesday - on a clear liquid diet for Tuesday and bowel prep (2) Gastrointestinal bleed: Plan: - See above (3) UTI (urinary tract infection): Plan: - Reports being on Abx recently but cannot tell me what. Do not see any Abx in external pharmacy --Discussed with Hector who reports an Rx for Macrobid a couple months ago for E. 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 She does report right flank pain but wonder if this is possibly musculoskeletal in nature? --CT with normal bladder and no mention of renal stones --could consider 14 days antibiotic treatment however may not be necessary (4) DM2 (diabetes mellitus, type 2): Plan: - A1c 7.3 -- given age this would be acceptable - Reports not filling insulin since Fall 2020? (maybe removed from it?);she states she lives with her son so maybe can clarify medications -- He thought she was supposed to be on insulin but is not sure of coverage and was going to look into this - he does state she just recently moved PCPs -- External pharmacy record with Jardiance and Metformin listed - BSG 300+ on admission and will monitor --currently acceptable - Glycemic management on board - appreciate assistance (5) Atrial fibrillation: Plan: - Possibly chronic; rate controlled - Hold Coumadin due to suspected GI bleed; Diltazem 120 mg daily (6) CKD (chronic kidney disease): Plan: - Limited labs to review but possible baseline 1.2-1.3 -- currently at baseline - Electrolytes acceptable; BUN elevated but possibly due to GI bleed? - Hold Lasix while awaiting procedures Plan: - Plan on EGD/Colonoscopy on Tuesday; Discussed with son at bedside on 10/09 and will try and touch base with him today - Appears PCP is [facility] provider. However, it appears her insurance is not accepted by the hospitalist service? [facility] to talk to their nurse navigator and case management. At this time keep patient on our service. However[facility] is no conflict with her insurance policy, for the purposes of continuity with PCP. Admission and Anticipated Discharge Date Admission Date: October 10, 2021 Subjective No acute events overnight. Hemoglobin continues to trend down. Currently at 7.6. However she is asymptomatic. Patient is to start bowel prep this afterno on in preparation for EGD/colonoscopy tomorrow morning. She reports no abdominal pain. She feels improved compared to when she was admitted. She reports she still has burning on urination and right-sided flank pain. She is tolerating a diet. She has not moved her bowels since being in the hospital. She verbalizes no new complaints. Review of Systems Review of Systems: All systems reviewed & are unremarkable except as noted in Subjective Physical Exam Physical Exam: PHYSICAL EXAM General Appearance: WDWN in NAD who is A&O x 3 HEENT: Head is normocephalic/atraumatic; Hearing grossly intact Neck: Supple; Trachea midline; Neg JVD Heart: Regular rate but irregularly irregular Lungs: CTA in all lung heck bilaterally; Respirations unlabored; Neg accessory muscle use Abdomen: Soft, non-tender, non-distended; Positive BS x 4 quadrants; right-sided CVA tenderness however could be musculoskeletal in nature possibly Extremities: Neg cyanosis or edema Neurological: Speech clear; Gross motor/sensory function intact; Neg focal n eurologic deficits Psychiatric: Appropriate mood/affect Skin: Normal Color; Warm/Dry Results & Data Results & Data ([facility]) Vital Signs (Past 12 Hours) Vital Signs Temp Pulse Pulse Resp BP BP Pulse Ox 10/11/21 08:28 85 10/11/21 06:54 37.0 C 86 18 111/69 96 10/11/21 03:05 37.0 C 76 18 105/63 97 10/10/21 23:50 80 10/10/21 22:42 36.9 C 88 18 108/57 L 95 PG Care Time/CCT Total # of Minutes Spent Total Time Spent with Patient: Total time spent is greater than 50% in coordination of care (as documented) at patient's floor/unit and/or counseling patient: Coding Level of Care Code 94257 Subseq Hosp Care Lvl 3 Diagnoses Acute blood loss anemia D62 Gastrointestinal bleed K92.2 UTI (urinary tract infection) N39.0 DM2 (diabetes mellitus, type 2) E11.9 Atrial fibrillation I48.91 CKD (chronic kidney disease) N18.9
[2021-10-11] MEDS ORDERED: LAVAGE SOLUTION 4000ML PO SCH (16:00)
[2021-10-11 16:01] LABS: Hematocrit (blood only) 24.7 % (37-47); Hemoglobin 7.9 g/dL (12.0-16.0); Mean Corpuscular Hemoglobin 26.4 pg (25-34); Mean Corpuscular Volume 82.6 fL (80-100); Mean Platelet Volume 10.3 fL (7.4-10.4); Platelet Count 277 K/uL (130-400); RDW Coefficient of Variation 19.7 % (11.5-14.5); Red Blood Count 2.99 M/uL (4.2-5.4); White Blood Count 4.43 K/uL (4.8-10.8)
[2021-10-12] MEDS: ONDANSETRON INJ 2 MG/ML 2 ML VIAL IV PRN ×2 (00:25→22:01)
[2021-10-12] MEDS: PANTOprazole 40 MG in DEXTROSE 5% 100 ML IV SCH ×5 (02:04→22:56)
[2021-10-12 06:18] LABS: Hematocrit (blood only) 26.4 % (37-47); Hemoglobin 8.3 g/dL (12.0-16.0); Mean Corpuscular Hemoglobin 26.1 pg (25-34); Mean Corpuscular Hgb Conc 31.4 g/dL (32-36); Mean Platelet Volume 10.4 fL (7.4-10.4); Platelet Count 295 K/uL (130-400); RDW Coefficient of Variation 19.4 % (11.5-14.5); RDW Standard Deviation 60.8 fL (36.4-46.3); Red Blood Count 3.18 M/uL (4.2-5.4); White Blood Count 6.45 K/uL (4.8-10.8)
[2021-10-12 06:28] LABS: INR 1.1 (0.9-1.1); Prothrombin Time 11.2 Seconds (9.0-12.0)
[2021-10-12 06:41] LABS: BUN Creatinine Ratio 20.5 (10-20); Calcium 8.1 mg/dl (8.5-10.1); Creatinine Clr Calc Pharmacy 50.2 ml/min; Est GFR (African American) 72.4 ml/min; Est GFR (Non-African American) 62.5 ml/min; Potassium 4.3 mmol/L (3.5-5.1)
--- NOTE | 2021-10-12 07:30 | Hospitalist Progress Note ---
Date of Service October 12, 2021 Assessment & Plan (1) Acute blood loss anemia: Plan: Suspected has been a slow gradual blood loss likely in the setting of Coumadin and currently supratherapeutic INRs (patient doesn't seem to track this very often) She reports chronic dark stool but is on iron supplementation and endorses intermittent epigastric pain - suspect possible PUD -- BUN also elevated at 66 on admission which could support GI bleed Hgb 6.5 on admit s/p 1 u PRBC --> Hgb stable but then worsened and required additional 2u PRBC --> hgb currently 8.3 Continue protonix gtt for now -->plans to transition to IVP BID tomorrow vs PO and would continue BID at d/c Continues to have loose dark stools reported by nursing staff Prep last evening GI consulted NPO for endoscopy today * EGD with normal esophagus, single gastric polyp (10mm pedunculated/sessile polyp with no bleeding and stigmata of recent bleeding found in gastric antrum, biopsied) -- could be inflammatory polyp leading to anemia * c-scope with poor prep/inadequate. diverticulosis in sigmois colon, internal hemorrhoids. Ok to advance diet, will need continued discussion for repeat c-scope outpatient after reivew of gastric pathology Continue to monitor CBC, transfuse if needed (2) Gastrointestinal bleed: Plan: * See above Iron panel with low trans% sat, however iron low normal at 35. Will check ferritin level/iron transufsion if needed (3) UTI (urinary tract infection): Plan: * Reports being on Abx recently but cannot tell me what. * Do not see any Abx in external pharmacy --Discussed with [facility] who reports an Rx for Macrobid a couple months ago for E. 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 (maybe removed from it?);she states she lives with her son so maybe can clarify medications He thought she was supposed to be on insulin but is not sure of coverage and was going to look into this - he does state she just recently moved PCPs -- External pharmacy record with Jardiance and Metformin listed - BSG 300+ on admission and will monitor --currently acceptable - Glycemic management on board - appreciate assistance (5) Atrial fibrillation: Plan: Possibly chronic; rate controlled - Hold Coumadin due to suspected GI bleed; Diltazem 120 mg daily INR 1.1 --> resume in next 24-48 hours if hgb remains stable on repeat (6) CKD (chronic kidney disease): Plan: - Limited labs to review but possible baseline 1.2-1.3 -- currently 0.88 - Electrolytes acceptable; BUN elevated but possibly due to GI bleed? - Hold Lasix while awaiting procedures, plans to resume in AM Plan: Plan on EGD/Colonoscopy on Tuesday; Discussed with son at bedside on 10/09 - Appears PCP is [facility] provider. However, it appears her insurance is not accepted by the hospitalist service? [facility] talk to their nurse navigator and case management. At this time keep patient on our service. However, future admissions should go to [facility] hospitalist service if there is no conflict with her insurance policy, for the purposes of continuity with PCP. Admission and Anticipated Discharge Date Admission Date: October 10, 2021 Subjective patient evaluated this afternoon. continued darkened stools reported overnight by nursing staff. just got back from endoscopy -- discussed possible bleeding polyp. poor prep for c-scope -- will await path but could consider repeating c-scope outpatient. patient sstates she is hungry and could eat my arm -- kitchen bringing in tray currently. No fever, chills. Has some RLQ abdominal discomfort/burning with urination -- on abx for UTI and urine cx with klebsiella and plans for change to PO abx in am to complete course. No chest pain, shortness of breath, nausea or vomiting at this time. Questions/concerns addressed. Review of Systems Review of Systems: All systems reviewed & are unremarkable except as noted in HPI & below Physical Exam Physical Exam: General: WN/WD female sitting up in bed, NAD, AOx3 Head: Atraumatic, normocephalic ENT; slightly dry mm, trachea midline without deviation Resp: CTAB, no w/c/r, on room air CV: irregularly irregular (rate 92bpm), no edema/calf tenderness GI: +BS throughout, slightly tender RLQ to palpation, +R CVA tenderness Neuro/Psych: AOx3, moves all extremities, no focal deficit, answers questions appropriately Skin: warm, dry Results & Data Results & Data ([facility]) Vital Signs (Past 12 Hours) Vital Signs Temp Pulse Pulse Resp BP Pulse Ox 10/12/21 07:24 91 H 10/12/21 03:56 36.4 C L 72 18 115/73 93 10/12/21 01:40 82 10/11/21 23:11 36.6 C 75 18 143/65 H 94 10/11/21 20:05 36.4 C L 65 20 141/82 H 98 Laboratory Results 10/12/21 10/12/21 10/12/21 Range/Units 11:54 05:57 05:49 WBC (4.8-10.8) K/uL RBC (4.2-5.4) M/uL Hgb (12.0-16.0) g/dL Hct (37-47) % MCV (80-100) fL MCH (25-34) pg MCHC (32-36) g/dL RDW Std Deviation (36.4-46.3) fL RDW Coeff of Muna (11.5-14.5) % Plt Count (130-400) K/uL MPV (7.4-10.4) fL PT (9.0-12.0) Seconds INR (0.9-1.1) Sodium 141 (136-145) mmol/L Potassium 4.3 (3.5-5.1) mmol/L Chloride 110 H (98-107) mmol/L Carbon Dioxide 28 (21-32) mmol/L Anion Gap 3 (3-11) BUN 18 (6-23) mg/dl Creatinine 0.88 (0.6-1.2) mg/dl Est Cr Clr Drug Dosing 50.2 ml/min Est GFR ( Amer) 72.4 ml/min Est GFR (Non-Af Amer) 62.5 ml/min BUN/Creatinine Ratio 20.5 H (10-20) Glucose 96 (70-99(Fasting)) mg/dl POC Glucose 156 H 105 H (70-99) mg/dl Calcium 8.1 L (8.5-10.1) mg/dl Ferritin (8-388) ng/ml 10/12/21 10/12/21 10/12/21 Range/Units 05:49 05:49 05:44 WBC 6.45 (4.8-10.8) K/uL RBC 3.18 L (4.2-5.4) M/uL Hgb 8.3 L (12.0-16.0) g/dL Hct 26.4 L (37-47) % MCV 83.0 (80-100) fL MCH 26.1 (25-34) pg MCHC 31.4 L (32-36) g/dL RDW Std Deviation 60.8 H (36.4-46.3) fL RDW Coeff of Muna 19.4 H (11.5-14.5) % Plt Count 295 (130-400) K/uL MPV 10.4 (7.4-10.4) fL PT 11.2 (9.0-12.0) Seconds INR 1.1 (0.9-1.1) Sodium (136-145) mmol/L Potassium (3.5-5.1) mmol/L Chloride (98-107) mmol/L Carbon Dioxide (21-32) mmol/L Anion Gap (3-11) BUN (6-23) mg/dl Creatinine (0.6-1.2) mg/dl Est Cr Clr Drug Dosing ml/min Est GFR ( Amer) ml/min Est GFR (Non-Af Amer) ml/min BUN/Creatinine Ratio (10-20) Glucose (70-99(Fasting)) mg/dl POC Glucose (70-99) mg/dl Calcium (8.5-10.1) mg/dl Ferritin 11.2 (8-388) ng/ml 10/12/21 10/11/21 10/11/21 Range/Units 00:24 20:15 16:28 WBC (4.8-10.8) K/uL RBC (4.2-5.4) M/uL Hgb (12.0-16.0) g/dL Hct (37-47) % MCV (80-100) fL MCH (25-34) pg MCHC (32-36) g/dL RDW Std Deviation (36.4-46.3) fL RDW Coeff of Muna (11.5-14.5) % Plt Count (130-400) K/uL MPV (7.4-10.4) fL PT (9.0-12.0) Seconds INR (0.9-1.1) Sodium (136-145) mmol/L Potassium (3.5-5.1) mmol/L Chloride (98-107) mmol/L Carbon Dioxide (21-32) mmol/L Anion Gap (3-11) BUN (6-23) mg/dl Creatinine (0.6-1.2) mg/dl Est Cr Clr Drug Dosing ml/min Est GFR ( Amer) ml/min Est GFR (Non-Af Amer) ml/min BUN/Creatinine Ratio (10-20) Glucose (70-99(Fasting)) mg/dl POC Glucose 75 170 H 110 H (70-99) mg/dl Calcium (8.5-10.1) mg/dl Ferritin (8-388) ng/ml 10/11/21 Range/Units 15:49 WBC 4.43 L (4.8-10.8) K/uL RBC 2.99 L (4.2-5.4) M/uL Hgb 7.9 L (12.0-16.0) g/dL Hct 24.7 L (37-47) % MCV 82.6 (80-100) fL MCH 26.4 (25-34) pg MCHC 32.0 (32-36) g/dL RDW Std Deviation 60.0 H (36.4-46.3) fL RDW Coeff of Muna 19.7 H (11.5-14.5) % Plt Count 277 (130-400) K/uL MPV 10.3 (7.4-10.4) fL PT (9.0-12.0) Seconds INR (0.9-1.1) Sodium (136-145) mmol/L Potassium (3.5-5.1) mmol/L Chloride (98-107) mmol/L Carbon Dioxide (21-32) mmol/L Anion Gap (3-11) BUN (6-23) mg/dl Creatinine (0.6-1.2) mg/dl Est Cr Clr Drug Dosing ml/min Est GFR ( Amer) ml/min Est GFR (Non-Af Amer) ml/min BUN/Creatinine Ratio (10-20) Glucose (70-99(Fasting)) mg/dl POC Glucose (70-99) mg/dl Calcium (8.5-10.1) mg/dl Ferritin (8-388) ng/ml PG Care Time/CCT Total # of Minutes Spent Total Time Spent with Patient: Total time spent is greater than 50% in coordination of care (as documented) at patient's floor/unit and/or counseling patient: Coding Level of Care Code 13739 Subseq Hosp Care Lvl 3 Diagnoses Acute blood loss anemia D62 Gastrointestinal bleed K92.2 UTI (urinary tract infection) N39.0 DM2 (diabetes mellitus, type 2) E11.9 Atrial fibrillation I48.91 CKD (chronic kidney disease) N18.9
[2021-10-12] MEDS: dilTIAZem HCL 120 MG CAPCR PO SCH (08:00)
[2021-10-12] MEDS: INSULIN ASPART PER UNIT SC SCH ×4 (08:19→20:32)
[2021-10-12] MEDS: INSULIN GLARGINE SOLOSTAR 100 UNITS/ML 3 ML PEN SC SCH ×2 (08:20→20:33)
[2021-10-12] MEDS ORDERED: PROPOFOL IV EMULSION 10 MG/ML 20 ML VIAL IV ONE (08:24)
[2021-10-12] MEDS ORDERED: LIDOCAINE 2% 2 ML VIAL/AMP(20MG/ML) INFIL ONE (08:24)
--- NOTE | 2021-10-12 08:29 | Anesthesiology Consultation ---
Date of Service October 12, 2021 Assessment & Plan (1) Encounter for pre-operative examination: Chart Review Chart Review: Acceptable Risk for Surgery, Patient NOT seen in Pre Admission Testing and entry level marketing representative initiated Consults Requested none ASA ASA3 Proposed Anesthesia Anesthesia Type: MAC Risk / Benefits Reviewed With: PT / POA / Parent / Guardian, Accepts Plan and Informed Consent Obtained History Surgery Operation Date: 10/12/21 15:45 Proposed Procedures p Colonoscopy EGD Dr Ford - Milad Ford MD Height/Weight Height: 5 ft 4 in Weight: 71.4 kg Allergies Allergy/AdvReac Type Severity Reaction Status Date / Time Iodinated Contrast Media Allergy . Verified 10/12/21 08:09 Penicillins Allergy IV DYE??? Verified 10/12/21 08:09 IV DYE Allergy Unknown Unknown Uncoded 10/08/21 11:48 PENICILLIN Allergy Unknown IV DYE Uncoded 10/08/21 11:48 Medications Home Medications Medication Instructions Recorded Confirmed Last Taken diltiazem HCl 120 mg 1,220 mg PO QAM 10/08/21 10/08/21 10/07/21 capsule,extended release 24 hr empagliflozin 10 mg tablet 10 mg PO QAM 10/08/21 10/08/21 10/07/21 (Jardiance) fenofibrate 160 mg tablet 160 mg PO QAM 10/08/21 10/08/21 10/07/21 furosemide 40 mg tablet 40 mg PO QAM 10/08/21 10/08/21 10/07/21 metformin 500 mg tablet 500 mg PO BID 10/08/21 10/08/21 10/07/21 pantoprazole 40 mg tablet,delayed 40 mg PO BID 10/08/21 10/08/21 10/07/21 release rosuvastatin 40 mg tablet 40 mg PO QAM 10/08/21 10/08/21 10/07/21 warfarin 2.5 mg tablet 2.5 mg PO QAM 10/08/21 10/08/21 10/07/21 Active Medications Generic Name Dose Route Start Last Admin Trade Name Freq PRN Reason Stop Dose Admin Acetaminophen 650 mg 10/08/21 17:19 10/10/21 12:22 Acetaminophen 325 Mg Tab PO 11/07/21 17:18 650 mg Q4H PRN Administration Pain or Fever Diltiazem HCl 120 mg 10/09/21 09:00 10/12/21 08:00 Diltiazem Hcl 120 Mg Capcr PO 11/08/21 08:59 120 mg QAM ALEN Administration Fenofibrate 145 mg 10/09/21 09:00 10/11/21 07:59 Fenofibrate Nanocrystallized 145 Mg Tablet PO 11/08/21 08:59 145 mg QAM ALEN Administration Furosemide 40 mg 10/09/21 09:00 10/10/21 07:30 Furosemide 40 Mg Tab PO 11/08/21 08:59 40 mg QAM ALEN Administration Pantoprazole Sodium 40 mg/ 100 mls @ 20 mls/hr 10/09/21 08:15 10/12/21 06:39 Dextrose IV 11/08/21 08:14 8 mg/hr Q5H ALEN 20 mls/hr Administration 8 MG/HR Ceftriaxone Sodium 2,000 mg/ 70 mls @ 100 mls/hr 10/09/21 10:00 10/11/21 08 :23 Dextrose IV 10/14/21 09:59 Infused Q24H [facility] Infusion Protocol Insulin Aspart 0 units 10/08/21 17:49 10/12/21 08:19 Insulin Aspart Per Unit SC 11/07/21 17:48 Not Given ACHS [facility] Insulin Glargine 0 units 10/09/21 12:00 10/12/21 08:20 Insulin Glargine Solostar 100 Units/Ml 3 Ml Pen SC 11/08/21 11:59 Not Given BID [facility] Protocol Ondansetron HCl 4 mg 10/08/21 17:19 10/12/21 00:25 Ondansetron Inj 2 Mg/Ml 2 Ml Vial IV 11/07/21 17:18 4 mg Q6H PRN Administration Nausea Pantoprazole Sodium 40 mg 10/08/21 21:00 10/08/21 22:16 Pantoprazole 40 Mg Tab PO 11/07/21 20:59 40 mg BID ALEN Administration Rosuvastatin Calcium 40 mg 10/09/21 09:00 10/11/21 07:59 Rosuvastatin Calcium 20 Mg Tab PO 11/08/21 08:59 40 mg QAM ALEN Administration NPO Date Last Intake of Fluids: 10/12/21 Time Last Intake of Fluids: 02:00 Last Intake of Fluids Comment: prep Date Last Intake of Solids: 10/10/21 Time Last Intake of Solids: 18:00 Past Medical History Medical History (Updated 10/12/21 @ 08:28 by Casey Chavis MD) Anemia Atrial fibrillation COPD (chronic obstructive pulmonary disease) DM2 (diabetes mellitus, type 2) Encounter for pre-operative examination History of DVT (deep vein thrombosis) Past Anesthesia History No Hx of Anesthesia Complications and No Family Hx of Anesthesia Complications History of PONV No Hx of PONV and No Hx of Motion Sickness Social History Smoking Status: Never smoker Hx Alcohol Use: No Hx Substance Use: No Physical Exam Vital Signs Last Vital Signs Temp 37.3 C 10/12/21 08:14 Pulse 96 H 10/12/21 08:14 Resp 16 10/12/21 08:14 BP 149/87 H 10/12/21 08:14 Pulse Ox 97 10/12/21 08:14 ENMT Mouth: no chipped teeth and no loose teeth Thyromental Distance: > or= 3.5 Finger Breadths Neck normal visual inspection and trachea midline; neck extension not limited Respiratory normal respiratory effort; no respiratory distress Auscultation: lungs clear to auscultation bilaterally; no crackles, no rhonchi and no wheezes Cardiovascular Rate/Rhythm: regular rate and regular rhythm Heart Sounds: no gallop, no murmur and no cardiac rub Neurologic moves all extremities and awake Psychiatric Orientation: alert Testing Laboratory Results 10/12/21 05:49 10/12/21 05:49 PT 11.2 Seconds (9.0-12.0) 10/12/21 05:49 INR 1.1 (0.9-1.1) 10/12/21 05:49 Hemoglobin A1c 7.3 % (4.5-5.6) H 10/09/21 08:18 Urine Color Yellow 10/09/21 05:40 Urine Appearance Cloudy (Clear) A 10/09/21 05:40 Urine pH 5.0 (4.5-7.5) 10/09/21 05:40 Ur Specific [place] 1.033 (1.000-1.030) H 10/09/21 05:40 Urine Protein Negative (Negative) 10/09/21 05:40 Urine Glucose (UA) 3+ (Negative) H 10/09/21 05:40 Urine Ketones Trace (Negative) H 10/09/21 05:40 Urine Nitrite Negative (Negative) 10/09/21 05:40 Ur Leukocyte Esterase 2+ (Negative) H 10/09/21 05:40 Urine WBC (Auto) >30 /hpf (0-5) H 10/09/21 05:40 Urine RBC (Auto) 0-4 /hpf (0-4) 10/09/21 05:40 U Hyaline Cast (Auto) 1-5 /lpf (0-5) 10/09/21 05:40 U Epithel Cells (Auto) 5-10 /lpf (0-5) H 10/09/21 05:40 Urine Bacteria (Auto) 4+ (Negative) H 10/09/21 05:40 Blood Type A Negative 10/08/21 11:50 Antibody Screen NEGATIVE 10/08/21 11:50 10/09/21 05:40 Urine Culture - Final Urine,Straight Cath Klebsiella pneumoniae 10/12/21 10/12/21 05:57 00:24 POC Glucose 105 H 75 Electrocardiogram Date: 10/08/21 Findings: + NSST changes Probable sinus rhythm.
--- NOTE | 2021-10-12 08:38 | Gastroenterology Progress Note ---
Date of Service October 12, 2021 Assessment & Plan (1) Anemia: Plan: Plan for EGD and attempt at colonoscopy with reported poor prep, for anemia Admission and Anticipated Discharge Date Admission Date: October 10, 2021 Subjective Doing well, no signs of bleeding Physical Exam Physical Exam: PHYSICAL EXAM General Appearance: WDWN in NAD who is A&O x 3 HEENT: Head is normocephalic/atraumatic; Hearing grossly intact Neck: Supple; Trachea midline; Neg JVD Heart: Regular rate but irregularly irregular Lungs: CTA in all lung heck bilaterally; Respirations unlabored; Neg accessory muscle use Abdomen: Soft, non-tender, non-distended; Positive BS x 4 quadrants; right-sided CVA tenderness however could be musculoskeletal in nature possibly Extremities: Neg cyanosis or edema Neurological: Speech clear; Gross motor/sensory function intact; Neg focal neurologic deficits Psychiatric: Appropriate mood/affect Skin: Normal Color; Warm/Dry Results & Data ([place]) Vital Signs (Past 12 Hours) Vital Signs Temp Pulse Pulse Resp BP BP Pulse Ox 10/12/21 08:14 37.3 C 96 H 16 149/87 H 97 10/12/21 07:52 36.9 C 92 H 20 122/77 98 10/12/21 07:24 91 H 10/12/21 03:56 36.4 C L 72 18 115/73 93 10/12/21 01:40 82 10/11/21 23:11 36.6 C 75 18 143/65 H 94 (1) Anemia Anemia type: unspecified type Qualified Code(s): D64.9 - Anemia, unspecified
[2021-10-12] MEDS ORDERED: ONDANSETRON INJ 2 MG/ML 2 ML VIAL ONE (08:49)
--- NOTE | 2021-10-12 09:22 | GI REPORT ---
Patient Name: Myranda Reeves Procedure Date: 10/12/2021 8:45 AM Date of : 1940 Admit Type: Inpatient Age: 81 Gender: Female Attending MD: Milad Ford MD Procedure: Colonoscopy Providers: Milad Ford MD Referring MD: Vlad Mo M.d. Indications: Iron deficiency anemia Medicines: Monitored Anesthesia Care Complications: No immediate complications. Estimated blood loss: None. Estimated Blood Loss: Estimated blood loss: none. Procedure: Pre-Anesthesia Assessment: - Pre-Anesthesia Assessment: - Prior to the procedure, a History and Physical was performed, and patient medications, allergies and sensitivities were reviewed. The patient's tolerance of previous anesthesia was reviewed. Please see [facility] for complete details. - The risks and benefits of the procedure and the sedation options and risks were discussed with the patient. All questions were answered and informed consent was obtained. - Patient identification and proposed procedure were verified prior to the procedure by the physician and the nurse. The procedure was verified in the pre-procedure area in the procedure room. After obtaining informed consent, the endoscope was passed carefully and meticuously under direct vision and only advanced when the lumen was clearly identified, C02 insuflation was utilized throughout the entirity of the procedure. Throughout the procedure, the patient's blood pressure, pulse, and oxygen saturations were monitored continuously. After I obtained informed consent, the scope was passed under direct vision. Throughout the procedure, the patient's blood pressure, pulse, and oxygen saturations were monitored continuously. The Colonoscope was introduced through the anus and advanced to the cecum, identified by appendiceal orifice and ileocecal valve. The colonoscopy was performed without difficulty. The patient tolerated the procedure well. The quality of the bowel preparation was poor and inadequate. Findings: Multiple small-mouthed diverticula were found in the sigmoid colon. Internal hemorrhoids were found during retroflexion. No signs of blood with green stool, no obvious masses, but prep quality was not quality for polyp identification. Impression: - Preparation of the colon was poor. - Preparation of the colon was inadequate. - Diverticulosis in the sigmoid colon. - Internal hemorrhoids. - No specimens collected. Recommendation: - [facility] care. - Ok to advance diet, discuss merits of repeating colonoscopy as outpatient after review of the gastric pathology. Follow Hb and iron therapies. Milad Ford MD 10/12/2021 9:21:39 AM This report has been signed electronically. Note Initiated On: 10/12/2021 8:45 AM Number of Addenda: 0 I attest to the content of the Intraoperative Record and orders documented therein, exceptions below {[id number]}
--- NOTE | 2021-10-12 09:24 | GI REPORT ---
Patient Name: Myranda Reeves Procedure Date: 10/12/2021 8:47 AM Date of : 1940 Admit Type: Inpatient Age: 81 Gender: Female Attending MD: Milad Ford MD Procedure: Upper GI endoscopy Providers: Milad Ford MD Referring MD: Vlad Mo M.d. Indications: Iron deficiency anemia Medicines: Monitored Anesthesia Care Complications: No immediate complications. Estimated blood loss: None. Estimated Blood Loss: Estimated blood loss: none. Procedure: Pre-Anesthesia Assessment: - Pre-Anesthesia Assessment: - Prior to the procedure, a History and Physical was performed, and patient medications, allergies and sensitivities were reviewed. The patient's tolerance of previous anesthesia was reviewed. Please see [employer] for complete details. - The risks and benefits of the procedure and the sedation options and risks were discussed with the patient. All questions were answered and informed consent was obtained. - Patient identification and proposed procedure were verified prior to the procedure by the physician and the nurse. The procedure was verified in the pre-procedure area in the procedure room. After obtaining informed consent, the endoscope was passed carefully and meticuously under direct vision and only advanced when the lumen was clearly identified, C02 insuflation was utilized throughout the entirity of the procedure. Throughout the procedure, the patient's blood pressure, pulse, and oxygen saturations were monitored continuously. After obtaining informed consent, the endoscope was passed under direct vision. Throughout the procedure, the patient's blood pressure, pulse, and oxygen saturations were monitored continuously. The Endoscope was introduced through the mouth, and advanced to the second part of duodenum. The upper GI endoscopy was accomplished without difficulty. The patient tolerated the procedure well. Findings: The examined esophagus was normal. A single 10 mm pedunculated and sessile polyp with no bleeding and stigmata of recent bleeding was found in the gastric antrum. Biopsies were taken with a cold forceps for histology. The examined duodenum was normal. Impression: - Normal esophagus. - A single gastric polyp. Biopsied. - Normal examined duodenum. Recommendation: - Await pathology results. - Continue present medications. - Follow up pathology results and schedule for EMR if adenomatous or blood count fails to respond as images consistent with possible inflammatory polyp which can at times cause anemia. Milad Ford MD 10/12/2021 9:23:53 AM This report has been signed electronically. Note Initiated On: 10/12/2021 8:47 AM Number of Addenda: 0 I attest to the content of the Intraoperative Record and orders documented therein, exceptions below {[id number]}
--- NOTE | 2021-10-12 09:53 | Anesthesiology Progress Note ---
Date of Service October 12, 2021 Anesthesia Post Procedure Vital Signs Vital Signs: Temp Pulse Pulse Resp BP BP Pulse Ox 10/12/21 09:47 82 16 124/77 94 10/12/21 09:32 86 16 103/56 L 96 10/12/21 09:17 72 16 89/49 L 97 10/12/21 08:14 37.3 C 96 H 16 149/87 H 97 10/12/21 07:52 36.9 C 92 H 20 122/77 98 10/12/21 07:24 91 H 10/12/21 03:56 36.4 C L 72 18 115/73 93 10/12/21 01:40 82 10/11/21 23:11 36.6 C 75 18 143/65 H 94 10/11/21 20:05 36.4 C L 65 20 141/82 H 98 10/11/21 17:41 61 10/11/21 15:03 37.0 C 60 18 112/71 96 10/11/21 12:39 36.9 C 59 L 18 106/67 96 Transfer of Care Handoff Completed per policy Notes Mental Status: alert / awake / arousable and participated in evaluation Patient Amnestic to Procedure: Yes Nausea / Vomiting: adequately controlled Pain: adequately controlled Airway Patency, RR, SpO2: stable & adequate BP & HR: stable & adequate Hydration State: stable & adequate Anesthetic Complications: no major complications apparent and Pt Satisfied with anesthetic care
[2021-10-12] MEDS: FENOFIBRATE NANOCRYSTALLIZED 145 MG TABLET PO SCH (10:32)
[2021-10-12] MEDS: ROSUVASTATIN CALCIUM 20 MG TAB PO SCH (10:32)
[2021-10-12] MEDS: cefTRIAXone SODIUM 2,000 MG in DEXTROSE 5% 50 ML IV SCH (10:32)
[2021-10-12] MEDS ORDERED: IRON SUCROSE 200 MG in 0.9 % SODIUM CHLORIDE 100 ML IV ONE (14:00)
[2021-10-13] MEDS: PANTOprazole 40 MG in DEXTROSE 5% 100 ML IV SCH ×2 (02:49→08:00)
--- NOTE | 2021-10-13 07:08 | Hospitalist Progress Note ---
Date of Service October 13, 2021 Assessment & Plan (1) Acute blood loss anemia: Plan: Suspected has been a slow gradual blood loss likely in the setting of Coumadin and currently supratherapeutic INRs (patient doesn't seem to track this very often) She reports chronic dark stool but is on iron supplementation and endorses intermittent epigastric pain - suspect possible PUD -- BUN also elevated at 66 on admission which could support GI bleed Hgb 6.5 on admit s/p 1 u PRBC --> Hgb stable but then worsened and required additional 2u PRBC --> hgb 8.3 on repeat Continued on protonix gtt and nursing staff continued to report loose dark stools 10/12 GI consulted Prep 10/11, c-scope&EGD 10/12 * EGD with normal esophagus, single gastric polyp (10mm pedunculated/sessile polyp with no bleeding and stigmata of recent bleeding found in gastric antrum, biopsied) -- could be inflammatory polyp leading to anemia * c-scope with poor prep/inadequate. diverticulosis in sigmoid colon, internal hemorrhoids. No further bleeding in stool, and had been on some IVF for endoscopy yesterday Venofer x 1 on 10/12, will repeat for today hgb 7.9, but give 300mg given borderline low iron, low ferritin, low trans % sat. Switch to Protonix IV BID for 10/13, monitor bowel movement for continued bleeding Per GI, hold Coumadin until tomorrow Ok to advance diet, will need continued discussion for repeat c-scope outpatient after review of gastric pathology --> per GI, given age likely not to pursue repeat c-scope (2) Gastrointestinal bleed: Plan: * See above Iron panel with low trans% sat, however iron low normal at 35. Will check ferritin level -- 11 Venofer x 1 10/12, repeat today for 300mg and will order additional dose for 10/14 (3) UTI (urinary tract infection): Plan: * Reports being on Abx recently but cannot tell me what. * Do not see any Abx in external pharmacy --Discussed with Hector who reports an Rx for Macrobid a couple months ago for E. 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; bladder unremarkable UCx with Klebsiella pneumonia (and RLQ/suprapubic /CVA tenderness which could be MSK but will tx given symptoms of burning with urination per patient) --> Continue Rocephin for today (got dose this morning) day 5 of therapy (could d/c after today given 5 days Rocephin for pyelo per uptodate and no further symptoms reported) but could consider extending coverage with PO in AM CT with normal bladder and no mention of renal stones --could consider 14 days antibiotic treatment however may not be necessary (4) DM2 (diabetes mellitus, type 2): Plan: A1c 7.3 -- given age this would be acceptable Reports not filling insulin since Fall 2020? (maybe removed from it?);she states she lives with her son so maybe can clarify medications He thought she was supposed to be on insulin but is not sure of coverage and was going to look into this - he does state she just recently moved PCPs -- External pharmacy record with Jardiance and Metformin listed - BSG 300+ on admission and will monitor --currently acceptable - Glycemic management on board - appreciate assistance (5) Atrial fibrillation: Plan: Possibly chronic; rate controlled - Hold Coumadin due to suspected GI bleed; Diltazem 120 mg daily INR 1.1 --> resume in next 24 hours if hgb remains stable on repeat per discussion with GI but continue to hold (6) CKD (chronic kidney disease): Plan: Limited labs to review but possible baseline 1.2-1.3 -- currently 0.83. Could have been slightly elevated prior due to anemia as well Lasix resumed this morning BMP in AM Plan: Plan on EGD/Colonoscopy on Tuesday; Discussed with son at bedside on 10/09 (will attempt to call again this afternoon) Appears PCP is [facility] provider. However, it appears her insurance is not accepted by the hospitalist service? Discussed with [facility] hospitalist team who was going to talk to their nurse navigator and case management. At this time keep patient on our service. However, future admissions should go to [facility] hospitalist service if there is no conflict with her insurance policy, for the purposes of continuity with PCP. Will need to resume [facility] PCP at d/c /coordination of care Admission and Anticipated Discharge Date Admission Date: October 10, 2021 Subjective patient evaluated this morning sitting upright eating breakfast, improved appetite no further blood in bowels but has not yet had another bowel movement discussed with GI and waiting to resume warfarin until at least tomorrow, monitoring blood counts and pathology. discussed additional dose of venofer for today Switching to PO abx in AM. Will call to update son later today. no fever, chills, chest pain, shortness of breath, abdominal pain, nausea or dysuria at this time. Questions/concerns addressed. Review of Systems Review of Systems: All systems reviewed & are unremarkable except as noted in HPI & below Physical Exam Physical Exam: General: WN/WD female sitting up in bed, NAD, AOx3 Head: Atraumatic, normocephalic ENT; slightly dry mm, trachea midline without deviation Resp: CTAB, no w/c/r, on room air CV: irregularly irregular (rate 90bpm), no edema/calf tenderness GI: +BS throughout, non-tender, +R CVA tenderness (NONE 10/13) Neuro/Psych: AOx3, moves all extremities, no focal deficit, answers questions appropriately Skin: warm, dry Results & Data Results & Data ([facility]) Vital Signs (Past 12 Hours) Vital Signs Temp Pulse Pulse Resp BP Pulse Ox 10/13/21 04:01 36.9 C 92 H 20 157/74 H 96 10/12/21 23:44 37.0 C 87 18 131/77 97 10/12/21 22:18 82 Laboratory Results 10/13/21 10/13/21 10/13/21 Range/Units 07:52 07:26 07:08 WBC (4.8-10.8) K/uL RBC (4.2-5.4) M/uL Hgb (12.0-16.0) g/dL Hct (37-47) % MCV (80-100) fL MCH (25-34) pg MCHC (32-36) g/dL RDW Std Deviation (36.4-46.3) fL RDW Coeff of Muna (11.5-14.5) % Plt Count (130-400) K/uL MPV (7.4-10.4) fL Immature Gran % (Auto) % Neut % (Auto) % Lymph % (Auto) % [place] % (Auto) % Eos % (Auto) % Baso % (Auto) % Neut # (Auto) (1.4-6.5) K/uL Lymph # (Auto) (1.2-3.4) K/uL [place] # (Auto) (0.11-0.59) K/uL Eos # (Auto) (0-0.5) K/uL Baso # (Auto) (0-0.2) K/uL Immature Gran # (Auto) (0.00-0.02) K/uL Anisocytosis PT 10.9 (9.0-12.0) Seconds INR 1.1 (0.9-1.1) Sodium (136-145) mmol/L Potassium (3.5-5.1) mmol/L Chloride (98-107) mmol/L Carbon Dioxide (21-32) mmol/L Anion Gap (3-11) BUN (6-23) mg/dl Creatinine (0.6-1.2) mg/dl Est Cr Clr Drug Dosing ml/min Est GFR ( Amer) ml/min Est GFR (Non-Af Amer) ml/min BUN/Creatinine Ratio (10-20) Glucose (70-99(Fasting)) mg/dl POC Glucose 90 (70-99) mg/dl Calcium (8.5-10.1) mg/dl Ferritin (8-388) ng/ml Albumin 2.5 L (3.4-5.0) gm/dl 10/13/21 10/13/21 10/12/21 Range/Units 07:08 07:08 20:11 WBC 4.08 L (4.8-10.8) K/uL RBC 3.02 L (4.2-5.4) M/uL Hgb 7.9 L (12.0-16.0) g/dL Hct 25.2 L (37-47) % MCV 83.4 (80-100) fL MCH 26.2 (25-34) pg MCHC 31.3 L (32-36) g/dL RDW Std Deviation 59.9 H (36.4-46.3) fL RDW Coeff of Muna 19.1 H (11.5-14.5) % Plt Count 291 (130-400) K/uL MPV 10.6 H (7.4-10.4) fL Immature Gran % (Auto) 0.2 % Neut % (Auto) 48.8 % Lymph % (Auto) 35.5 % [place] % (Auto) 9.6 % Eos % (Auto) 4.9 % Baso % (Auto) 1.0 % Neut # (Auto) 1.99 (1.4-6.5) K/uL Lymph # (Auto) 1.45 (1.2-3.4) K/uL [place] # (Auto) 0.39 (0.11-0.59) K/uL Eos # (Auto) 0.20 (0-0.5) K/uL Baso # (Auto) 0.04 (0-0.2) K/uL Immature Gran # (Auto) 0.01 (0.00-0.02) K/uL Anisocytosis Present PT (9.0-12.0) Seconds INR (0.9-1.1) Sodium 139 (136-145) mmol/L Potassium 3.7 (3.5-5.1) mmol/L Chloride 111 H (98-107) mmol/L Carbon Dioxide 26 (21-32) mmol/L Anion Gap 2 L (3-11) BUN 9 (6-23) mg/dl Creatinine 0.83 (0.6-1.2) mg/dl Est Cr Clr Drug Dosing 53.6 ml/min Est GFR ( Amer) 77.7 ml/min Est GFR (Non-Af Amer) 67.1 ml/min BUN/Creatinine Ratio 10.8 (10-20) Glucose 82 (70-99(Fasting)) mg/dl POC Glucose 230 H (70-99) mg/dl Calcium 7.8 L (8.5-10.1) mg/dl Ferritin (8-388) ng/ml Albumin (3.4-5.0) gm/dl 10/12/21 10/12/21 10/12/21 Range/Units 16:34 11:54 05:44 WBC (4.8-10.8) K/uL RBC (4.2-5.4) M/uL Hgb (12.0-16.0) g/dL Hct (37-47) % MCV (80-100) fL MCH (25-34) pg MCHC (32-36) g/dL RDW Std Deviation (36.4-46.3) fL RDW Coeff of Muna (11.5-14.5) % Plt Count (130-400) K/uL MPV (7.4-10.4) fL Immature Gran % (Auto) % Neut % (Auto) % Lymph % (Auto) % [place] % (Auto) % Eos % (Auto) % Baso % (Auto) % Neut # (Auto) (1.4-6.5) K/uL Lymph # (Auto) (1.2-3.4) K/uL [place] # (Auto) (0.11-0.59) K/uL Eos # (Auto) (0-0.5) K/uL Baso # (Auto) (0-0.2) K/uL Immature Gran # (Auto) (0.00-0.02) K/uL Anisocytosis PT (9.0-12.0) Seconds INR (0.9-1.1) Sodium (136-145) mmol/L Potassium (3.5-5.1) mmol/L Chloride (98-107) mmol/L Carbon Dioxide (21-32) mmol/L Anion Gap (3-11) BUN (6-23) mg/dl Creatinine (0.6-1.2) mg/dl Est Cr Clr Drug Dosing ml/min Est GFR ( Amer) ml/min Est GFR (Non-Af Amer) ml/min BUN/Creatinine Ratio (10-20) Glucose (70-99(Fasting)) mg/dl POC Glucose 122 H 156 H (70-99) mg/dl Calcium (8.5-10.1) mg/dl Ferritin 11.2 (8-388) ng/ml Albumin (3.4-5.0) gm/dl PG Care Time/CCT Total # of Minutes Spent Total Time Spent with Patient: Total time spent is greater than 50% in coordination of care (as documented) at patient's floor/unit and/or counseling patient: Coding Level of Care Code 22928 Subseq Hosp Care Lvl 3 Diagnoses Acute blood loss anemia D62 Gastrointestinal bleed K92.2 UTI (urinary tract infection) N39.0 DM2 (diabetes mellitus, type 2) E11.9 Atrial fibrillation I48.91 CKD (chronic kidney disease) N18.9
[2021-10-13] MEDS: FUROSEMIDE 40 MG TAB PO SCH (07:13)
[2021-10-13] MEDS: FENOFIBRATE NANOCRYSTALLIZED 145 MG TABLET PO SCH (07:35)
[2021-10-13] MEDS: ROSUVASTATIN CALCIUM 20 MG TAB PO SCH (07:35)
[2021-10-13] MEDS: dilTIAZem HCL 120 MG CAPCR PO SCH (07:35)
[2021-10-13 07:39] LABS: Basophils # (auto) 0.04 K/uL (0-0.2); Eosinophils % (auto) 4.9 %; Hematocrit (blood only) 25.2 % (37-47); Hemoglobin 7.9 g/dL (12.0-16.0); Immature Granulocytes # (auto) 0.01 K/uL (0.00-0.02); Immature Granulocytes % (auto) 0.2 %; Lymphocytes # (auto) 1.45 K/uL (1.2-3.4); Lymphocytes % (auto) 35.5 %; Mean Corpuscular Hemoglobin 26.2 pg (25-34); Mean Corpuscular Hgb Conc 31.3 g/dL (32-36); Mean Corpuscular Volume 83.4 fL (80-100); Mean Platelet Volume 10.6 fL (7.4-10.4); Monocytes # (auto) 0.39 K/uL (0.11-0.59); Monocytes % (auto) 9.6 %; Neutrophils # (auto) 1.99 K/uL (1.4-6.5); Neutrophils % (auto) 48.8 %; Platelet Count 291 K/uL (130-400); RDW Coefficient of Variation 19.1 % (11.5-14.5); RDW Standard Deviation 59.9 fL (36.4-46.3); Red Blood Count 3.02 M/uL (4.2-5.4); White Blood Count 4.08 K/uL (4.8-10.8)
[2021-10-13 07:55] LABS: INR 1.1 (0.9-1.1); Prothrombin Time 10.9 Seconds (9.0-12.0)
[2021-10-13 08:05] LABS: Anisocytosis Present
[2021-10-13 08:15] LABS: BUN Creatinine Ratio 10.8 (10-20); Calcium 7.8 mg/dl (8.5-10.1); Creatinine Clr Calc Pharmacy 53.6 ml/min; Est GFR (African American) 77.7 ml/min; Est GFR (Non-African American) 67.1 ml/min; Potassium 3.7 mmol/L (3.5-5.1)
[2021-10-13] MEDS ORDERED: IRON SUCROSE 300 MG in SODIUM CHLORIDE 0.9% 250 ML IV ONE (08:45)
[2021-10-13] MEDS: INSULIN ASPART PER UNIT SC SCH ×4 (08:57→20:16)
[2021-10-13] MEDS: INSULIN GLARGINE SOLOSTAR 100 UNITS/ML 3 ML PEN SC SCH ×2 (09:11→20:16)
[2021-10-13] MEDS: PANTOprazole 40 MG in SYRINGE 0 ML IV SCH ×2 (10:16→20:30)
--- NOTE | 2021-10-13 11:21 | Gastroenterology Progress Note ---
Date of Service October 13, 2021 Assessment & Plan (1) Acute blood loss anemia: Plan: Unsure exactly where the sight of bleeding was, but does not appear to be actively bleeding at this time. BUN has remained normal. Gastric polyp was benign. May restart the coumadin tomorrow if no further drop in Hb/Hct. Regular consistency diet. Would continue daily PPI. Would defer repeat OP colonoscopy due to pt age but would reconsider if continues with worsening anemia. GI will sign off. Please notify us if new/worsening GI issues. Admission and Anticipated Discharge Date Admission Date: October 10, 2021 Supervising Physician Co-Signing Physician Notes Attending attestation I have seen, examined this patient, and agree with the findings and above by our mid-level provider LINDSEY Richards, with the following additions: - No signs of bleeding - Hb Stable - Outpatient follow up - If Hb does not respond, then will need Capsule endoscopy and then consider resection of gastric polyp if normal video capsule. Defer to PCP and 1 mo GI follow up with CBC prior Subjective Had rectal bleeding. Received 3 RBCs. EGD and colonoscopy yesterday with a single gastric polyp; diverticulosis. One small loose black BM early today. Review of Systems Review of Systems: ROS: Gen: Denies weakness, fevers, weight loss Eyes: No eye redness, or pain, no recent vision changes Resp: No SOB, no cough Cardio: No palpitations/irregular beats, no chest pain GI: No abdominal pain, no nausea/vomiting : Denies pain on urination Skin: No jaundice, itching or new rashes Physical Exam Constitutional: well developed and cooperative Eyes: PERRL, conjunctivae normal, anicteric sclerae Respiratory: normal respiratory effort, lungs clear to auscultation normal respiratory effort and able to speak in complete sentences; no respiratory distress, no labored breathing, does not use accessory muscles and no cough Cardiovascular: RRR, no murmur, no edema Gastrointestinal (Abdomen): normal bowel sounds, soft, nontender, no hepatosplenomegaly Skin: no rashes, warm and dry normal turgor Neurologic: PERRL, EOMI, accommodation nl, no face palsy, no dysarthria awake; not confused Psychiatric: A+Ox3, euthymic affect Results & Data ([facility]) Vital Signs (Past 12 Hours) Vital Signs Temp Pulse Resp BP Pulse Ox 10/13/21 07:14 37.1 C 91 H 20 118/70 94 10/13/21 04:01 36.9 C 92 H 20 157/74 H 96 10/12/21 23:44 37.0 C 87 18 131/77 97 Laboratory Results WBC 4, Hb 7.9, Hct 25, plts 291, INR 1.1, Na 139, K 4.3, Cl 110, CO2 28, BUN 18, Cr 0.58, glucose 82 Diagnostic Findings CTAP w IV contrast 10/08/21: No evidence of acute abnormality and in particular no evidence of bowel obstruction.
[2021-10-13] MEDS: cefTRIAXone SODIUM 2,000 MG in DEXTROSE 5% 50 ML IV SCH (11:35)
--- NOTE | 2021-10-13 13:08 | Pharmacy Report ---
Pharmacy Glycemic Short Note 2 - Date of Service October 13, 2021 - Glycemic Short BSG Results (Last 24 hours): 10/12/21 10/12/21 10/13/21 16:34 20:11 07:08 Glucose 82 POC Glucose 122 H 230 H 10/13/21 10/13/21 07:52 11:57 Glucose POC Glucose 90 174 H OUTPATIENT ANTIDIABETIC REGIMEN: * A1c 7.3% (10/09/21) * Jardiance, metformin * Patient reports not filling insulin since Fall 2020 ASSESSMENT: 10/13/21 * Patient's BSGs yesterday were [phone] mg/dL. Fasting today is 90 mg/dL. * Patient received 16 units of insulin yesterday (6 units of basal and 10 units of bolus). * Fasting excellent. continue current regimen. * Patient trends upwards after in-range BSG ... tighten CR. 10/11 * BSGs yesterday of 132, 169, 218, and 134 mg/dL, fasting BSG of 135 mg/dL this morning * Received 29 units of insulin (12 units of basal and 17 units of prandial/correctional bolus insulin) * Will slightly tighten Novolog carb coverage today * Diet changed to clears today, bowel prep this evening in preparation for colonoscopy tomorrow 10/12 * Will likely decrease HS basal this evening in light of NPO tomorrow Background: * Myranda is a 81 yo female admitted for gastrointestinal bleeding. Colonoscopy scheduled for Tuesday morning. * Oral agents held on admission - patient started on SQ basal + bolus insulin * Significant improvement in glycemic control overnight with minimal insulin - will titrate conservatively PLAN FOR INPATIENT GLYCEMIC CONTROL: * Hold outpatient oral diabetes medications * Basal insulin * Lantus 0-6 units SQ BID based on BSG (see EHR for details) * Bolus insulin * NovoLog per scale ACHS or Q6hrs while NPO * Goal Range: Low 110 mg/dL - High 140 mg/dL * Correction Factor: 30 mg/dL/unit * Nutritional / Prandial insulin per carb ratio of 1 unit per 7 grams CHO consumed PLAN FOR DISCHARGE: * HbA1c of 7.3% is reasonable for patient based on age and comorbidities * Continue current outpatient regimen at discharge, provided no contraindications present
[2021-10-13] MEDS: CYANOCOBALAMIN 1000 MCG/ML VIAL IM SCH (16:38)
[2021-10-13] MEDS: DOCUSATE SODIUM/SENNA 50/8.6MG TAB PO SCH (20:30)
[2021-10-14 07:21] LABS: Basophils # (auto) 0.02 K/uL (0-0.2); Basophils % (auto) 0.2 %; Eosinophils # (auto) 0.13 K/uL (0-0.5); Eosinophils % (auto) 1.6 %; Hematocrit (blood only) 28.3 % (37-47); Hemoglobin 8.8 g/dL (12.0-16.0); Immature Granulocytes # (auto) 0.02 K/uL (0.00-0.02); Immature Granulocytes % (auto) 0.2 %; Lymphocytes # (auto) 1.18 K/uL (1.2-3.4); Lymphocytes % (auto) 14.4 %; Mean Corpuscular Hemoglobin 25.9 pg (25-34); Mean Corpuscular Hgb Conc 31.1 g/dL (32-36); Mean Corpuscular Volume 83.2 fL (80-100); Mean Platelet Volume 10.3 fL (7.4-10.4); Monocytes % (auto) 3.7 %; Neutrophils # (auto) 6.56 K/uL (1.4-6.5); Neutrophils % (auto) 79.9 %; Nucleated RBC # (auto) 0.03 K/uL (0-0); Nucleated RBC % (auto) 0.3 %; Platelet Count 342 K/uL (130-400); RDW Coefficient of Variation 19.4 % (11.5-14.5); RDW Standard Deviation 60.4 fL (36.4-46.3); White Blood Count 8.21 K/uL (4.8-10.8)
[2021-10-14 07:41] LABS: BUN Creatinine Ratio 11.8 (10-20); Creatinine Clr Calc Pharmacy 48.5 ml/min; Est GFR (African American) 67.7 ml/min; Est GFR (Non-African American) 58.5 ml/min; Potassium 4.2 mmol/L (3.5-5.1)
--- NOTE | 2021-10-14 07:41 | Hospitalist Progress Note ---
Date of Service October 14, 2021 Assessment & Plan (1) Acute blood loss anemia: Plan: Suspected has been a slow gradual blood loss likely in the setting of Coumadin and currently supratherapeutic INRs (patient doesn't seem to track this very often) She reports chronic dark stool but is on iron supplementation and endorses intermittent epigastric pain - suspect possible PUD -- BUN also elevated at 66 on admission which could support GI bleed Hgb 6.5 on admit s/p 1 u PRBC --> Hgb stable but then worsened and required additional 2u PRBC --> hgb 8.3 on repeat Continued on protonix gtt and nursing staff continued to report loose dark stools 10/12 GI consulted Prep 10/11, c-scope&EGD 10/12 * EGD with normal esophagus, single gastric polyp (10mm pedunculated/sessile polyp with no bleeding and stigmata of recent bleeding found in gastric antrum, biopsied) -- could be inflammatory polyp leading to anemia * c-scope with poor prep/inadequate. diverticulosis in sigmoid colon, internal hemorrhoids. * Pathology with inflamed hyperplastic polyp with granulation tissue * --> Will need f/u GI in 1 month with CBC prior to appotinemtn. Will arrange for home health to draw labs after d/c to ensure stability as well No further bleeding in stool, and had been on some IVF for endoscopy yesterday Venofer x 1 on 10/12 (200mg), 10/13 (300mg) and 3rd dose today given borderline low iron, low ferritin, low trans % sat. --> Caused some nasuea, given zofran and ordered phenergan if ineffective Switched to protonix PO BID Hgb stable and improved to 8.8 Discussed with GI and ok to resume coumadin 2.5mg daily No further BM yet, senna/miralax ordered and monitor -- per GI first BM may still have some blood but expect subsequent to be resolved Monitor labs in AM (2) Gastrointestinal bleed: Plan: * See above Iron panel with low trans% sat, however iron low normal at 35. Will check ferritin level -- 11 Venofer x 1 10/12, repeat 10/13 for 300mg 3rd dose ordered 10/14 CBC in AM (3) UTI (urinary tract infection): Plan: * Reports being on Abx recently but cannot tell me what. * Do not see any Abx in external pharmacy --Discussed with [facility] who reports an Rx for Macrobid a couple months ago for E. 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 (maybe removed from it?);she states she lives with her son so maybe can clarify medications He thought she was supposed to be on insulin but is not sure of coverage and was going to look into this - he does state she just recently moved PCPs -- External pharmacy record with Jardiance and Metformin listed - BSG 300+ on admission and will monitor --currently acceptable - Glycemic management on board - appreciate assistance --> Continue home regimen and would suspect likely would not need insulin at d/c and can f/u with PCP on her usual PO agents (5) Atrial fibrillation: Plan: Possibly chronic; rate controlled - Hold Coumadin due to suspected GI bleed; Diltazem 120 mg daily INR 1.1 10/13 --> Hgb stable, coumadin 2.5mg daily resumed 10/14 per ok w/ GI Monitor on tele/continued bleeding (6) CKD (chronic kidney disease): Plan: Limited labs to review but possible baseline 1.2-1.3 -- currently 0.83. Could have been slightly elevated prior due to anemia as well Lasix resumed , Cr stable 0.93 BMP in AM Plan: PT consulted --> ok for return home. Discussed with CM and arranged for home health and would have labs checked after d/c to ensure stability Updated son Jaya evening 10/13 regarding plan Appears PCP is [facility] provider. However, it appears her insurance is not accepted by the hospitalist service? Discussed with [facility] hospitalist team who was going to talk to their nurse navigator and case management. At this time keep patient on our service. However, future admissions should go to [facility] hospitalist service if there is no conflict with her insurance policy, for the purposes of continuity with PCP. Will need to resume [facility] PCP at d/c /coordination of care Admission and Anticipated Discharge Date Admission Date: October 10, 2021 Subjective patient evaluated this morning doing ok but complaints of some nausea, states they did give her something, zofran, partially effective still with some nausea and discussed will order some phenergan , patient agreeable no vomiting or abdominal pain, and currently getting venofer transfusion. denies lightheaded/dizziness/palpitations/shortness of breath or chest pain at this time. Does endorse feeling cold and requesting warm blanket. No further BMs but has + BS. Discussed with GI and ok to resume her warfarin and switch to protonix PO BID. Updated son Jaya last evening regarding plan. Review of Systems Review of Systems: All systems reviewed & are unremarkable except as noted in HPI & below Physical Exam Physical Exam: General: WN/WD , laying in bed, NAD but complaints of nausea (no vomiting) Head: Atraumatic, normocephalic ENT; slightly dry mm (improved), trachea midline without deviation Resp: CTAB, no w/c/r, on room air SpO2 95% CV: irregularly irregular (rate 92bpm), no edema/calf tenderness GI: +BS throughout, non-tender, no guarding/rigidity Neuro/Psych: AOx3, moves all extremities, no focal deficit, answers questions appropriately Skin: warm, dry Results & Data Results & Data ([place]) Vital Signs (Past 12 Hours) Vital Signs Temp Pulse Pulse Resp BP BP Pulse Ox 10/14/21 07:31 37.0 C 100 H 20 127/75 95 10/14/21 03:11 37.7 C H 91 H 20 105/66 93 10/14/21 01:00 92 H 10/13/21 22:48 37.2 C 93 H 20 131/69 94 Laboratory Results 10/14/21 10/14/21 10/14/21 Range/Units 11:26 07:22 06:59 WBC (4.8-10.8) K/uL RBC (4.2-5.4) M/uL Hgb (12.0-16.0) g/dL Hct (37-47) % MCV (80-100) fL MCH (25-34) pg MCHC (32-36) g/dL RDW Std Deviation (36.4-46.3) fL RDW Coeff of Muna (11.5-14.5) % Plt Count (130-400) K/uL MPV (7.4-10.4) fL Immature Gran % (Auto) % Neut % (Auto) % Lymph % (Auto) % [place] % (Auto) % Eos % (Auto) % Baso % (Auto) % Neut # (Auto) (1.4-6.5) K/uL Lymph # (Auto) (1.2-3.4) K/uL [place] # (Auto) (0.11-0.59) K/uL Eos # (Auto) (0-0.5) K/uL Baso # (Auto) (0-0.2) K/uL Immature Gran # (Auto) (0.00-0.02) K/uL Absolute Nucleated RBC (0-0) K/uL Nucleated RBC % (auto) % Sodium 140 (136-145) mmol/L Potassium 4.2 (3.5-5.1) mmol/L Chloride 112 H (98-107) mmol/L Carbon Dioxide 24 (21-32) mmol/L Anion Gap 4 (3-11) BUN 11 (6-23) mg/dl Creatinine 0.93 (0.6-1.2) mg/dl Est Cr Clr Drug Dosing 48.5 ml/min Est GFR ( Amer) 67.7 ml/min Est GFR (Non-Af Amer) 58.5 ml/min BUN/Creatinine Ratio 11.8 (10-20) Glucose 198 H (70-99(Fasting)) mg/dl POC Glucose 106 H 217 H (70-99) mg/dl Calcium 8.0 L (8.5-10.1) mg/dl 10/14/21 10/13/21 10/13/21 Range/Units 06:59 20:12 16:29 WBC 8.21 (4.8-10.8) K/uL RBC 3.40 L (4.2-5.4) M/uL Hgb 8.8 L (12.0-16.0) g/dL Hct 28.3 L (37-47) % MCV 83.2 (80-100) fL MCH 25.9 (25-34) pg MCHC 31.1 L (32-36) g/dL RDW Std Deviation 60.4 H (36.4-46.3) fL RDW Coeff of Muna 19.4 H (11.5-14.5) % Plt Count 342 (130-400) K/uL MPV 10.3 (7.4-10.4) fL Immature Gran % (Auto) 0.2 % Neut % (Auto) 79.9 % Lymph % (Auto) 14.4 % [place] % (Auto) 3.7 % Eos % (Auto) 1.6 % Baso % (Auto) 0.2 % Neut # (Auto) 6.56 H (1.4-6.5) K/uL Lymph # (Auto) 1.18 L (1.2-3.4) K/uL [place] # (Auto) 0.30 (0.11-0.59) K/uL Eos # (Auto) 0.13 (0-0.5) K/uL Baso # (Auto) 0.02 (0-0.2) K/uL Immature Gran # (Auto) 0.02 (0.00-0.02) K/uL Absolute Nucleated RBC 0.03 H (0-0) K/uL Nucleated RBC % (auto) 0.3 % Sodium (136-145) mmol/L Potassium (3.5-5.1) mmol/L Chloride (98-107) mmol/L Carbon Dioxide (21-32) mmol/L Anion Gap (3-11) BUN (6-23) mg/dl Creatinine (0.6-1.2) mg/dl Est Cr Clr Drug Dosing ml/min Est GFR ( Amer) ml/min Est GFR (Non-Af Amer) ml/min BUN/Creatinine Ratio (10-20) Glucose (70-99(Fasting)) mg/dl POC Glucose 100 H 89 (70-99) mg/dl Calcium (8.5-10.1) mg/dl PG Care Time/CCT Total # of Minutes Spent Total Time Spent with Patient: Total time spent is greater than 50% in coordination of care (as documented) at patient's floor/unit and/or counseling patient: Coding Level of Care Code 17028 Subseq Hosp Care Lvl 3 Diagnoses Acute blood loss anemia D62 Gastrointestinal bleed K92.2 UTI (urinary tract infection) N39.0 DM2 (diabetes mellitus, type 2) E11.9 Atrial fibrillation I48.91 CKD (chronic kidney disease) N18.9
[2021-10-14] MEDS: CYANOCOBALAMIN 1000 MCG/ML VIAL IM SCH (07:45)
[2021-10-14] MEDS: PANTOprazole 40 MG in SYRINGE 0 ML IV SCH (07:45)
[2021-10-14] MEDS: ONDANSETRON INJ 2 MG/ML 2 ML VIAL IV PRN ×2 (07:45→12:37)
[2021-10-14] MEDS: dilTIAZem HCL 120 MG CAPCR PO SCH (07:45)
[2021-10-14] MEDS: FENOFIBRATE NANOCRYSTALLIZED 145 MG TABLET PO SCH (07:45)
[2021-10-14] MEDS: DOCUSATE SODIUM/SENNA 50/8.6MG TAB PO SCH (07:45)
[2021-10-14] MEDS: ROSUVASTATIN CALCIUM 20 MG TAB PO SCH (07:45)
[2021-10-14] MEDS: FUROSEMIDE 40 MG TAB PO SCH (07:45)
[2021-10-14] MEDS: INSULIN ASPART PER UNIT SC SCH ×4 (08:13→20:50)
[2021-10-14] MEDS: INSULIN GLARGINE SOLOSTAR 100 UNITS/ML 3 ML PEN SC SCH ×2 (08:15→20:50)
[2021-10-14] MEDS ORDERED: IRON SUCROSE 300 MG in SODIUM CHLORIDE 0.9% 250 ML IV ONE (09:00)
[2021-10-14] MEDS ORDERED: PROMETHAZINE HCL 6.25 MG in SODIUM CHLORIDE 0.9% 50 ML IV ONE (09:30)
--- NOTE | 2021-10-14 13:24 | Pharmacy Report ---
Pharmacy Glycemic Short Note 2 - Date of Service October 14, 2021 - Glycemic Short BSG Results (Last 24 hours): 10/13/21 10/13/21 10/14/21 16:29 20:12 06:59 Glucose 198 H POC Glucose 89 100 H 10/14/21 10/14/21 07:22 11:26 Glucose POC Glucose 217 H 106 H OUTPATIENT ANTIDIABETIC REGIMEN: * A1c 7.3% (10/09/21) * Jardiance, metformin * Patient reports not filling insulin since Fall 2020 ASSESSMENT: 10/14 * Fasting blood sugar 217mg/dl, no basal yesterday d/t scale, will change so only held for BSG < 100mg/dl * No further changes needed at this time 10/13 * Patient's BSGs yesterday were [phone] mg/dL. Fasting today is 90 mg/dL. * Patient received 16 units of insulin yesterday (6 units of basal and 10 units of bolus). * Fasting excellent. continue current regimen. * Patient trends upwards after in-range BSG ... tighten CR. 10/11 * BSGs yesterday of 132, 169, 218, and 134 mg/dL, fasting BSG of 135 mg/dL this morning * Received 29 units of insulin (12 units of basal and 17 units of prandial/correctional bolus insulin) * Will slightly tighten Novolog carb coverage today * Diet changed to clears today, bowel prep this evening in preparation for colonoscopy tomorrow 10/12 * Will likely decrease HS basal this evening in light of NPO tomorrow Background: * Myranda is a 81 yo female admitted for gastrointestinal bleeding. Colonoscopy scheduled for Tuesday morning. * Oral agents held on admission - patient started on SQ basal + bolus insulin * Significant improvement in glycemic control overnight with minimal insulin - will titrate conservatively PLAN FOR INPATIENT GLYCEMIC CONTROL: * Hold outpatient oral diabetes medications * Basal insulin * Lantus 6 units SQ BID (hold for BSG < 100mg/dl) * Bolus insulin * NovoLog per scale ACHS or Q6hrs while NPO * Goal Range: Low 110 mg/dL - High 140 mg/dL * Correction Factor: 30 mg/dL/unit * Nutritional / Prandial insulin per carb ratio of 1 unit per 8 grams CHO consumed PLAN FOR DISCHARGE: * HbA1c of 7.3% is reasonable for patient based on age and comorbidities * Continue current outpatient regimen at discharge, provided no contraindications present
[2021-10-14] MEDS ORDERED: WARFARIN SOD 2.5 MG TAB PO SCH (16:00)
[2021-10-14] MEDS: POLYETHYLENE (MIRALAX) 17 GM PACK PO SCH (17:04)
[2021-10-14] MEDS: PANTOprazole 40 MG TAB PO SCH (20:51)
[2021-10-15 07:33] LABS: Basophils # (auto) 0.03 K/uL (0-0.2); Basophils % (auto) 0.5 %; Eosinophils # (auto) 0.14 K/uL (0-0.5); Eosinophils % (auto) 2.4 %; Immature Granulocytes # (auto) 0.01 K/uL (0.00-0.02); Immature Granulocytes % (auto) 0.2 %; Lymphocytes # (auto) 1.66 K/uL (1.2-3.4); Mean Corpuscular Hemoglobin 25.7 pg (25-34); Mean Corpuscular Hgb Conc 30.8 g/dL (32-36); Mean Corpuscular Volume 83.6 fL (80-100); Mean Platelet Volume 10.3 fL (7.4-10.4); Monocytes # (auto) 0.55 K/uL (0.11-0.59); Monocytes % (auto) 9.3 %; Neutrophils # (auto) 3.53 K/uL (1.4-6.5); Neutrophils % (auto) 59.6 %; Platelet Count 307 K/uL (130-400); RDW Coefficient of Variation 20.1 % (11.5-14.5); RDW Standard Deviation 62.2 fL (36.4-46.3); Red Blood Count 3.11 M/uL (4.2-5.4); White Blood Count 5.92 K/uL (4.8-10.8)
--- NOTE | 2021-10-15 07:40 | Hospitalist Progress Note ---
Date of Service October 15, 2021 Assessment & Plan Admission and Anticipated Discharge Date Admission Date: October 10, 2021 Results & Data Results & Data ([facility]) Vital Signs (Past 12 Hours) Vital Signs Temp Pulse Pulse Resp BP Pulse Ox 10/15/21 07:34 86 10/15/21 04:29 37.5 C 82 20 116/68 92 10/15/21 01:38 89 10/15/21 00:02 37.4 C 91 H 20 102/54 L 92 10/14/21 20:18 36.9 C 110 H 20 112/64 95 Laboratory Results 10/15/21 10/15/21 10/15/21 Range/Units 07:11 06:46 06:46 WBC 5.92 (4.8-10.8) K/uL RBC 3.11 L (4.2-5.4) M/uL Hgb 8.0 L (12.0-16.0) g/dL Hct 26.0 L (37-47) % MCV 83.6 (80-100) fL MCH 25.7 (25-34) pg MCHC 30.8 L (32-36) g/dL RDW Std Deviation 62.2 H (36.4-46.3) fL RDW Coeff of Muna 20.1 H (11.5-14.5) % Plt Count 307 (130-400) K/uL MPV 10.3 (7.4-10.4) fL Immature Gran % (Auto) 0.2 % Neut % (Auto) 59.6 % Lymph % (Auto) 28.0 % Twiggs % (Auto) 9.3 % Eos % (Auto) 2.4 % Baso % (Auto) 0.5 % Neut # (Auto) 3.53 (1.4-6.5) K/uL Lymph # (Auto) 1.66 (1.2-3.4) K/uL Twiggs # (Auto) 0.55 (0.11-0.59) K/uL Eos # (Auto) 0.14 (0-0.5) K/uL Baso # (Auto) 0.03 (0-0.2) K/uL Immature Gran # (Auto) 0.01 (0.00-0.02) K/uL PT INR Sodium Pending (136-145) mmol/L Potassium Pending (3.5-5.1) mmol/L Chloride Pending (98-107) mmol/L Carbon Dioxide Pending (21-32) mmol/L Anion Gap Pending (3-11) BUN Pending (6-23) mg/dl Creatinine Pending (0.6-1.2) mg/dl Est Cr Clr Drug Dosing Pending ml/min Est GFR ( Amer) Pending ml/min Est GFR (Non-Af Amer) Pending ml/min BUN/Creatinine Ratio Pending (10-20) Glucose Pending (70-99(Fasting)) mg/dl POC Glucose 90 (70-99) mg/dl Calcium Pending (8.5-10.1) mg/dl 10/15/21 10/14/21 10/14/21 Range/Units 06:46 20:49 20:44 WBC (4.8-10.8) K/uL RBC (4.2-5.4) M/uL Hgb (12.0-16.0) g/dL Hct (37-47) % MCV (80-100) fL MCH (25-34) pg MCHC (32-36) g/dL RDW Std Deviation (36.4-46.3) fL RDW Coeff of Muna (11.5-14.5) % Plt Count (130-400) K/uL MPV (7.4-10.4) fL Immature Gran % (Auto) % Neut % (Auto) % Lymph % (Auto) % Twiggs % (Auto) % Eos % (Auto) % Baso % (Auto) % Neut # (Auto) (1.4-6.5) K/uL Lymph # (Auto) (1.2-3.4) K/uL Twiggs # (Auto) (0.11-0.59) K/uL Eos # (Auto) (0-0.5) K/uL Baso # (Auto) (0-0.2) K/uL Immature Gran # (Auto) (0.00-0.02) K/uL PT Pending INR Pending Sodium (136-145) mmol/L Potassium (3.5-5.1) mmol/L Chloride (98-107) mmol/L Carbon Dioxide (21-32) mmol/L Anion Gap (3-11) BUN (6-23) mg/dl Creatinine (0.6-1.2) mg/dl Est Cr Clr Drug Dosing ml/min Est GFR ( Amer) ml/min Est GFR (Non-Af Amer) ml/min BUN/Creatinine Ratio (10-20) Glucose (70-99(Fasting)) mg/dl POC Glucose 95 100 H (70-99) mg/dl Calcium (8.5-10.1) mg/dl 10/14/21 10/14/21 10/14/21 Range/Units 16:58 11:26 06:59 WBC (4.8-10.8) K/uL RBC (4.2-5.4) M/uL Hgb (12.0-16.0) g/dL Hct (37-47) % MCV (80-100) fL MCH (25-34) pg MCHC (32-36) g/dL RDW Std Deviation (36.4-46.3) fL RDW Coeff of Muna (11.5-14.5) % Plt Count (130-400) K/uL MPV (7.4-10.4) fL Immature Gran % (Auto) % Neut % (Auto) % Lymph % (Auto) % Twiggs % (Auto) % Eos % (Auto) % Baso % (Auto) % Neut # (Auto) (1.4-6.5) K/uL Lymph # (Auto) (1.2-3.4) K/uL Twiggs # (Auto) (0.11-0.59) K/uL Eos # (Auto) (0-0.5) K/uL Baso # (Auto) (0-0.2) K/uL Immature Gran # (Auto) (0.00-0.02) K/uL PT INR Sodium 140 (136-145) mmol/L Potassium 4.2 (3.5-5.1) mmol/L Chloride 112 H (98-107) mmol/L Carbon Dioxide 24 (21-32) mmol/L Anion Gap 4 (3-11) BUN 11 (6-23) mg/dl Creatinine 0.93 (0.6-1.2) mg/dl Est Cr Clr Drug Dosing 48.5 ml/min Est GFR ( Amer) 67.7 ml/min Est GFR (Non-Af Amer) 58.5 ml/min BUN/Creatinine Ratio 11.8 (10-20) Glucose 198 H (70-99(Fasting)) mg/dl POC Glucose 130 H 106 H (70-99) mg/dl Calcium 8.0 L (8.5-10.1) mg/dl PG Care Time/CCT Total # of Minutes Spent Total Time Spent with Patient: Total time spent is greater than 50% in coordination of care (as documented) at patient's floor/unit and/or counseling patient: Coding
[2021-10-15 07:47] LABS: INR 1.1 (0.9-1.1); Prothrombin Time 11.1 Seconds (9.0-12.0)
[2021-10-15 07:53] LABS: BUN Creatinine Ratio 12.1 (10-20); Calcium 7.9 mg/dl (8.5-10.1); Creatinine Clr Calc Pharmacy 49.5 ml/min; Est GFR (African American) 69.5 ml/min; Potassium 3.8 mmol/L (3.5-5.1)
[2021-10-15 08:01] LABS: Anisocytosis Present; Hypochromasia Present; Ovalocytes 1+; Polychromasia 1+
[2021-10-15] MEDS: FUROSEMIDE 40 MG TAB PO SCH (08:12)
[2021-10-15] MEDS: dilTIAZem HCL 120 MG CAPCR PO SCH (08:12)
[2021-10-15] MEDS: ROSUVASTATIN CALCIUM 20 MG TAB PO SCH (08:12)
[2021-10-15] MEDS: DOCUSATE SODIUM/SENNA 50/8.6MG TAB PO SCH (08:12)
[2021-10-15] MEDS: POLYETHYLENE (MIRALAX) 17 GM PACK PO SCH (08:13)
[2021-10-15] MEDS: INSULIN GLARGINE SOLOSTAR 100 UNITS/ML 3 ML PEN SC SCH (08:13)
[2021-10-15] MEDS: PANTOprazole 40 MG TAB PO SCH (08:13)
[2021-10-15] MEDS: FENOFIBRATE NANOCRYSTALLIZED 145 MG TABLET PO SCH (08:14)
[2021-10-15] MEDS: CYANOCOBALAMIN 1000 MCG/ML VIAL IM SCH (08:17)
[2021-10-15] MEDS: INSULIN ASPART PER UNIT SC SCH ×2 (08:18→12:20)
[2021-10-15] MEDS ORDERED: IRON SUCROSE 200 MG in 0.9 % SODIUM CHLORIDE 100 ML IV ONE (09:00)
--- NOTE | 2021-10-15 10:12 | Gastroenterology Progress Note ---
Date of Service October 15, 2021 Assessment & Plan (1) Gastrointestinal bleed: (2) Acute blood loss anemia: Plan: Unsure of exact cause of melena, possibly intermittent bleeding from the large hyperplastic gastric polyp. Her current small black smears, with normal BUN is unlikely to represent current GI bleeding, though Hb did drop slightly yesterday to today. No plans to repeat EGD, Colonoscopy. Will arrange OP VCE to verify no small bowel bleeding. Our office will contact her to arrange. Admission and Anticipated Discharge Date Admission Date: October 10, 2021 Supervising Physician Co-Signing Physician Notes Attending attestation I have seen, examined this patient, and agree with the findings and above by our mid-level provider LINDSEY Richards, with the following additions: - no signs of bleeding, will arrange outpt capsule for small bowel evaluation Subjective GI was asked to see Ms. Reeves today due to Hb 8.8 yesterday, 8.0 today. Coumadin was restarted yesterday. INR today is 1.1. Pt awake, alert. C/o dizziness, but is able to sit up in a bedside chair. Denies abd pain. Reports small black smears since colonoscopy. No large or formed BMs. No bright red blood in BMs. BUN is normal at 11. Hb was 6.8 on arrival + a total of 3 units of RBCs ->8.0 today. Review of Systems Review of Systems: ROS: Gen: + dizziness, No fevers, weight loss. Eyes: No eye redness, or pain, no recent vision changes Resp: No SOB, no cough Cardio: No palpitations/irregular beats, no chest pain GI: As per HPI, otherwise (-). : Denies pain on urination Skin: No jaundice, itching or new rashes Physical Exam Constitutional: well developed and cooperative Eyes: PERRL, conjunctivae normal, anicteric sclerae Respiratory: normal respiratory effort, lungs clear to auscultation Cardiovascular: RRR, no murmur, no edema Gastrointestinal (Abdomen): normal bowel sounds, soft, nontender, no hepatosplenomegaly Skin: no rashes, warm and dry normal turgor and + pallor Neurologic: PERRL, EOMI, accommodation nl, no face palsy, no dysarthria awake; not confused Psychiatric: A+Ox3, euthymic affect Results & Data ([facility]) Vital Signs (Past 12 Hours) Vital Signs Temp Pulse Pulse Resp BP Pulse Ox 10/15/21 07:49 37.0 C 82 20 123/74 92 10/15/21 07:34 86 10/15/21 04:29 37.5 C 82 20 116/68 92 10/15/21 01:38 89 10/15/21 00:02 37.4 C 91 H 20 102/54 L 92 Laboratory Results WBC 5, Hb 8, Hct 26, Plts 307, Na 139, K 3.8, Cl 111, CO2 25, BUN 11, Cr .91, glucose 78. Diagnostic Findings CTAP 10/08/21: No evidence of acute abnormality and in particular no evidence of bowel obstruction. EGD 10/12/21: On e1cm Gastric polyp. Path: hyperplastic Colonoscopy 10/12/21: sigmoid diverticulosis, internal hemorrhoids, poor prep.
[2021-10-15] MEDS: MAGNESIUM SULFATE / D5W 1 GM/100 ML BAG IV SCH ×2 (10:40→12:43)
--- NOTE | 2021-10-15 10:50 | Discharge Summary ---
Date of Service October 15, 2021 Admission HPI Per Admitting Provider Patient is a 81-year-old female the past medical history of A. fib, DVT, anemia, DM2, GERD, and recent treatment for UTI who presents today with complaints of nausea and vomiting for 2 days. Patient states she had been overall okay up until the last few days, aside from persistent dysuria that has not subsided, despite reportedly being treated with an unknown antibiotic recently for a UTI. She has not had any abdominal pain until today, now noting dull epigastric pain without radiation. Also reports right sided flank pain. Denies fever/chills, weight loss, myalgias, cough, SOB, BULLARD, chest pain, palpitations, weakness, dizziness, hematemesis, hematuria, diarrhea. Reports chronically dark stools since starting on iron pills. In the ED, workup revealed Hgb 6.5, Hct 20.9, retic count pending, patient asymptomatic, HD stable, 1 unit of pRBCs started. Also significant for WBC 12.31, neutrophil # 10.49, lymph 1.26, procal pending, U/A with culture pending. Blood glucose 325 with CO2 19, AG 12, electrolytes WNL. BUN 66, Cr 1.30. Patient states she was diagnosed with anemia by her PCP last 2 to 3 weeks and instructed to take 3 pills which she believes is an iron pill, B12, and possibly folate. She also notes she has been without insulin since fall 2020, she had an appointment with her PCP in July however could not keep it due to COVID-19 infection. Has not rescheduled. She has been on Coumadin for history of DVTs, however does not recall her last INR check. States she has been compliant with medications. Admission Exam Per Admitting Provider General: awake, alert, no apparent distress Head: Normocephalic, atraumatic ENT: PERRL, EOMI, no pharyngeal exudate, mucous membranes moist Chest: Clear to auscultation, on room air, no adventitious breath sounds Cardiac: Regular rate and rhythm, no murmur, no JVD, normal peripheral pulses, good capillary refill Abdominal: Mild epigastric and LLQ pain; NABS x 4 quadrants, soft, no rebound, guarding or tenderness Extremities: Normal inspection, no peripheral edema or erythema, calfs nontender to palpation Psych: Normal mood and affect Neuro: AAO x 3, strength intact bilaterally and rated 5/5, no motor deficits, speech is clear, no peripheral sensory deficits Skin: with pallor; no rash or erythema Principal Diagnosis Anemia, GIB, UTI Discharge Exam General: WN/WD , laying in bed, NAD Head: Atraumatic, normocephalic ENT; , trachea midline without deviation Resp: CTAB, no w/c/r, on room air SpO2 96% CV: irregularly irregular (rate 84bpm), no edema/calf tenderness GI: +BS throughout, non-tender, no guarding/rigidity Neuro/Psych: AOx3, moves all extremities, no focal deficit, answers questions appropriately Skin: warm, dry Discharge Data Allergies Allergy/AdvReac Type Severity Reaction Status Date / Time Iodinated Contrast Media Allergy . Verified 10/12/21 08:09 Penicillins Allergy IV DYE??? Verified 10/12/21 08:09 Consultations 10/08/21 14:38 ED Decision to Admit Stat 10/09/21 08:00 Consult Gastroenterology Routine Procedures Performed Operation Date: 10/12/21 15:45 Actual Procedures p EGD Biopsy Cytology - Milad Ford MD s Colonoscopy - Milad Ford MD Ordered Studies 10/08/21 12:34 CT abd pelvis IV con only Stat Hospital Course (1) Acute blood loss anemia: Suspected has been a slow gradual blood loss likely in the setting of Coumadin and currently supratherapeutic INRs (patient doesn't seem to track this very often) She reports chronic dark stool but is on iron supplementation and endorses intermittent epigastric pain - suspect possible PUD -- BUN also elevated at 66 on admission which could support GI bleed Hgb 6.5 on admit s/p 1 u PRBC --> Hgb stable but then worsened and required additional 2u PRBC --> hgb 8.3 on repeat Continued on protonix gtt and nursing staff continued to report loose dark stools 10/12 GI consulted Prep 10/11, c-scope&EGD 10/12 * EGD with normal esophagus, single gastric polyp (10mm pedunculated/sessile polyp with no bleeding and stigmata of recent bleeding found in gastric antrum, biopsied) -- could be inflammatory polyp leading to anemia * c-scope with poor prep/inadequate. diverticulosis in sigmoid colon, internal hemorrhoids. * Pathology with inflamed hyperplastic polyp with granulation tissue * --> Will need f/u GI in 1 month with CBC prior to appoint. Will arrange for home health to draw labs after d/c to ensure stability as well --> also set up home health and will check CBC/INR in 2 days to ensure blood counts stable No further bleeding in stool, and had been on some IVF for endoscopy day prior Venofer x 1 on 10/12 (200mg), 10/13 (300mg) and 3rd dose today given borderline low iron, low ferritin, low trans % sat. --> Caused some nasuea, given zofran and ordered phenergan if ineffective B12 checked on admission, 239 --> given IM while inpatient and to continue PO supplementation at discharge No further nausea after reduced dose Venofer. Resumed coumadin 10/14 +BM darkened smear but hgb stable at 8.0 (was 8.8 but suspect lab error after only 1 unit venofer to go from 7.9 to 8.8 day prior) and could be old blood Switched to protonix PO BID day prior and this will be continued at discharge To have OP VCE to verify no small bowel bleeding -- GI to contact to arrange (2) Gastrointestinal bleed: See above Iron panel with low trans% sat, however iron low normal at 35. Ferritin only 11 Given Venofer and PRBC as above Hgb stable since coumadin resumed and will have repeat CBC/INR in 2 days to ensure counts stable F/u PCP and GI as above (3) UTI (urinary tract infection): * Reports being on Abx recently but cannot tell me what. * Do not see any Abx in external pharmacy --Discussed with Hector who reports an Rx for Macrobid a couple months ago for E. 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 (maybe removed from it?);she states she lives with her son so maybe can clarify medications He thought she was supposed to be on insulin but is not sure of coverage and was going to look into this - he does state she just recently moved PCPs -- External pharmacy record with Jardiance and Metformin listed - BSG 300+ on admission and will monitor --currently acceptable - Glycemic management on board - appreciate assistance BSGs controlled To d/c with her usual PO Jardiance and Metformin --> no need to continue insulin at this time and can f/u with PCP (5) Atrial fibrillation: Possibly chronic; rate controlled - Held Coumadin due to suspected GI bleed; Diltazem 120 mg daily continued INR 1.1 10/13 --> Hgb stable, coumadin 2.5mg daily resumed 10/14 per ok w/ GI Monitor on tele/continued bleeding -- see above (6) CKD (chronic kidney disease): Limited labs to review but possible baseline 1.2-1.3 -- could have been slightly elevated prior due to anemia as well Lasix resumed , Cr stable 0.91 BMP in AM (7) B12 deficiency: borderline low 239 (folate 14.11) given IM while inpatient, and to continue PO supplementation at discharge PT consulted --> ok for return home. Discussed with CM and arranged for home health and would have labs checked after d/c to ensure stability Updated son Jaya day prior regarding plan Appears PCP is [facility] provider. However, it appears her insurance is not accepted by the hospitalist service? Discussed with [facility] hospitalist team who was going to talk to their nurse navigator and case management. At this time keep patient on our service. However, future admissions should go to [facility] hospitalist service if there is no conflict with her insurance policy, for the purposes of continuity with PCP. Will need to resume [facility] PCP at d/c /coordination of care Total Time Total Time Spent Total Time Spent (In Minutes): 50 Discharge Plan Discharge Items Patient Disposition: Home - Home Health Services Reason For Visit: HGB 6.5, N+V Discharge Diagnosis: ANEMIA, MELENA Goals: You have been hospitalized for an acute medical problem. During your stay at [facility], we have made an effort to correct the problem that brought you to the hospital while keeping you as comfortable as possible. Medications were used to bring your condition under control and your discharge instructions will include directions for any medications you should take after leaving the hospital. Please make sure you see your Primary Care Provider as part of your follow up plan. Activity: Resume your previous activity Non-emergency contact: Primary Care Provider and Team Facilitator Call non-emergency contact if: you have any medication questions, your symptoms worsen and you have a fever Follow-up/Referrals: Milad Ford MD [Physician] - (Date & Time 11/23/2021 10:00 AM Provider Milad Ford MD Department Gastroenterology, [facility] ) Jennifer Nielson MD [Primary Care Provider] - (Date & Time 10/21/2021 4:00 PM Provider Jennifer Bradley MD Department General Internal Medicine [facility] ) Diet: Carb Consistent or DM2 and Heart Healthy Ambulatory Orders: Complete Blood Count no Diff (Timed) Timeframe: 2 Days Location: Determined by Patient Ordered By: Monica Govea Prothrombin Time INR (Timed) Timeframe: 2 Days Location: Determined by Patient Ordered By: Monica Govae Addtl Attending Provider Instructions: You have been hospitalized for low hemoglobin felt to be related to GI bleed. You were given blood as well as supportive care and GI was consulted and performed an EGD and colonoscopy. Colonoscopy was poor but EGD did show an inflamed polyp that could have been cause for bleeding. Pathology was negative for malignancy but if continues to bleed, GI will arrange for video pill endoscopy for evaluation. You should continue on protonix 40mg by mouth twice daily for next 3 months, or otherwise dictated by GI in follow up. Your iron was low and you were given replacement for this. You also had a B12 checked and this was slightly low. These both contribute to hemoglobin level and you will continue oral B12 supplementation at discharge and should consider every other day supplementation with iron. You completed a course of antibiotics for UTI as well. You will have follow up with GI in 1 month from now, and should follow up with your PCP in the next 7-10 days to monitor your progress. Your A1c (diabetes) was well controlled despite not having insulin since last year, and it is felt you can continue just your oral medications at this time without need to restart insulin therapy! Home health has been arranged to check your blood counts and INR on Tuesday. Please return to the emergency department with any increased abdominal pain/blood or dark stools (although note iron can cause some darkened stools), for any fever, chest pain, or shortness of breath, or for any other symptoms that are concerning for you. Take care! Pending Studies at Discharge: No Stand-Alone Forms: [facility] Medications and DC Order Prescriptions: New cyanocobalamin (vitamin B-12) 3,000 mcg capsule 3,000 mcg PO DAILY Qty: 30 RF: 0 Continued furosemide 40 mg tablet 40 mg PO QAM RF: 0 metformin 500 mg tablet 500 mg PO BID RF: 0 warfarin 2.5 mg tablet 2.5 mg PO QAM RF: 0 rosuvastatin 40 mg tablet 40 mg PO QAM RF: 0 fenofibrate 160 mg tablet 160 mg PO QAM RF: 0 Jardiance 10 mg tablet 10 mg PO QAM RF: 0 pantoprazole 40 mg tablet,delayed release (DR/EC) 40 mg PO BID Qty: 60 RF: 0 Changed diltiazem HCl 120 mg capsule,extended release 24hr 120 mg PO QAM Qty: 0 RF: 0 Discharge Orders: Discharge Order (Routine); Ordered 10/15/21 Ordered By: Monica Mcneil/Other Patient Handouts: Managing Type 2 Diabetes, Special [facility] for Diabetes Admission Data Admit Date/Time: 10/10/21 07:53 Attending Provider: Matthew Mendoza Admit Provider: Charly Cortez Primary Care Provider: Jennifer Nielson Other Providers: Charly Cortez ; Michael Alcocer ; [facility],Home Healthcare Other Interventions: Discharge Summary Assessment (RN) Last Done: 10/15/21 12:01 Supervising Physician Co-Signing Physician Notes Attending Attestation & Discharge Note: Pt seen/examined, chart reviewed, care plan d/w JORY Govea. I agree w/ the weaver components of her documentation. 81yo female who presented with nausea and found to have severe anemia with Hb <7. MCV 76 at admission. s/p 3 units PRBCs while here, with discharge Hb 8. Seen by [facility] - underwent upper/lower endoscopies. A gastric polyp was found which could have caused her bleeding. Colonoscopy showed diverticular disease & hemorrhoids but no active or signs of recent bleeding from those 2 entities. Outpatient capsule endoscopy to be arranged. Also treated for Klebsiella UTI and B12 deficiency. Post-discharge will need repeat CBC to ensure stability. Discharge exam: gen - NAD, sitting in chair comfortably skin - mild pallor heart - RRR, s1 s2 lungs - CTA b/l abd - soft NT ND BS+ ext - no edema, pulses 2+ b/l Matthew Mendoza MD Coding Level of Care Code D/C DAY MANAGEMENT >30 MINS Diagnoses Acute blood loss anemia D62 Gastrointestinal bleed K92.2 UTI (urinary tract infection) N39.0 DM2 (diabetes mellitus, type 2) E11.9 Atrial fibrillation I48.91 CKD (chronic kidney disease) N18.9 B12 deficiency E53.8
== END 2021-10-15 15:45 | disposition home health service (06) | DRG 394 ==
LOC: ED 10:08 → EDINP 10:08 → SUATTDRO 15:29 → 2N 17:19 → SUATTDRO 10-10 07:53 → 2N 10-11 18:05